=== PATIENT | female | born 1950 | race Caucasian/White ===

== ENCOUNTER → 2016-12-19 | Outpatient (CLI) | payer MEDICARE, OTHER ==
--- NOTE | 2016-12-19 12:21 | US ---
EXAMINATION TYPE: US abdomen complete, DATE OF EXAM: 12/19/2016 10:26 AM COMPARISON: CT August 15, 2010 CLINICAL HISTORY: R10.3 Lower abd pain. Hernia repair 2010, complete hysterectomy ovarian cancer 2000 , gb removed EXAM MEASUREMENTS: Liver Length: 17.4 cm Gallbladder Wall: gb removed CBD: 0.4 cm Spleen: 13.5 cm Right Kidney: 10.7 x 4.6 x 6.1 cm Left Kidney: 11.6 x 4.4 x 5.5 cm TECHNOLOGIST IMPRESSION: large body habitus, overlying bowel gas Pancreas: large body habitus, overlying bowel gas pancreatic duct 0.2 cm Liver: left lobe cystic structure 1.8 x 1.5 x 1.6 cm, small rt lobe 0.8 x 0.6 x 1.0 cm probable cyst; gregg hepatis region 2.9 x 0.8 x 1.8 cm fatty area Gallbladder: gb removed Evidence for sonographic Howard's sign: gb removed CBD: wnl Spleen: wnl enlarged. Right Kidney: wnl Left Kidney: wnl Upper IVC: wnl Abd Aorta: wnl bladder : rt jet seen Urinary bladder is not greatly distended, no suspicious intraluminal mass or wall thickening is evide nt The liver is heterogeneous in appearance, no worrisome intrahepatic ductal dilatation is seen. Evalua tion for focal masses is limited due to the heterogeneity. Finding likely reflects diffuse fatty infi ltration is confirmed on prior CT. Technologist ortez a 1.9 cm lobulated anechoic lesion felt to refl ect a thin-walled cyst is increased through transmission is noted in the left hepatic lobe. A central ill-defined hypoechoic area likely reflects focal fatty sparing marked by technologist. Lesion likel y enlarged from prior CT The intrahepatic portion of the IVC and visualized abdominal aorta are withi n normal limits. Gallbladder is surgically absent. Common bile duct is unremarkable. The visualized portions of the pancreas are heterogeneous. The spleen remains enlarged measuring 13.5 cm on long a xis. Kidneys are symmetric and free of hydronephrosis. No renal lesions are seen. At end of exam after voiding significant amount of residual urine is seen, calculated volume is 77 cc . IMPRESSION: Diffuse fatty infiltration of liver and mild splenomegaly is redemonstrated. Abnormal pos t void residual in bladder is noted
--- NOTE | 2016-12-19 12:23 | US ---
EXAMINATION TYPE: US pelvic limited DATE OF EXAM: 12/19/2016 10:30 AM COMPARISON: CT abdomen pelvis August 15, 2010 CLINICAL HISTORY: R10.3 Lower abd pain. Complete hysterectomy 2000 TECHNOLOGIST IMPRESSION: bowel loops prominent rt side but peristalsis seen Uterus is surgically absent. No free fluid is seen in pelvic cul-de-sac. Normal-appearing ovaries are not identified. Technologist's shows a oval hypoechoic structure in the right adnexa measuring 5.4 x 3.6 cm but during real-time scanning this is felt to reflect peristalsin g bowel per technologist. IMPRESSION: As above, no significant finding is seen to account for patient's symptoms.
== END | disposition home or self-care (01) ==
LOC: RADUSWWP 09:33
PROVIDERS: ATTEND Family Medicine
DX: K76.0 Fatty (change of) liver, not elsewhere classified (principal); R16.1 Splenomegaly, not elsewhere classified
CPT/HCPCS: 76700; 76857

== ENCOUNTER → 2016-12-19 | Outpatient (CLI) | payer MEDICARE, OTHER ==
--- NOTE | 2016-12-19 19:03 | PN ---
66-year-old lady who has been followed in the sleep center for treatment of obstructive sleep apnea/hypopnea syndrome. She had CPAP titration at the very end of 2016 and we discussed results of the sleep study with patient in detail. She sleeps pretty well during the sleep study and breathing was under control with lower pressure 5 and 6 cm of water. Patient continued to use her machine every night for the whole night without significant problems. No snoring with the machine. She still feels a little bit sleepy during the day. [place] Sleepiness Scale is 13, sometimes according to the patient. MEDICATIONS: 1. Losartan. 2. Hydrochlorothiazide. 3. Fenofibrate. 4. Zetia. 5. OxyContin. 6. Baclofen. 7. Tramadol. 8. Gabapentin. 9. Pro-Air. 10. Symbicort. 11. Metformin. 12. Montelukast. 13. Loratadine. 14. Fluticasone. 15. ( ). 16. Eliquis. During physical exam, the patient in no distress. VITAL SIGNS: BP 135/74, HR 75, RR 18. Weight 187.6. Temperature 98.2. Oxygen saturation at room air 97%. HEENT: Oropharynx extremely low position of soft palate. Some redness of the cheeks bilaterally, rosacea. NECK: Supple. No JVD. Thyroid is not palpable. LUNGS: Clear to percussion and to auscultation. Good air exchange. No wheezing or rhonchi. HEART: S1, S2 regular. No murmurs, gallops or rubs. ABDOMEN: Obese. Soft and nontender. Bowel sounds are present. No organomegaly appreciated. EXTREMITIES: No edema. No clubbing or cyanosis. 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 Cranial nerves 2 to 7 intact. There is no fasciculation or atrophy noted. No focal deficits observed. IMPRESSION: 1. Obstructive sleep apnea/hypopnea syndrome on control with CPAP at 6 cm of water. Patient benefiting from treatment. 2. Obesity. 3. Diabetes. 4. Peripheral neuropathy. 5. Allergies. 6. Hyperlipidemia. 7. Depression. 8. History of atrial fibrillation. 9. Rosacea. 10. History of ovarian carcinoma. PLAN: 1. Continue treatment with CPAP every night for the whole night. 2. Watching and losing weight. 3. Sleep hygiene with regular time in bed for at least 8 hours. 4. No driving if feeling any sleepiness. 5. Precautions related to driving. 6. Follow up visit in 10 months. Thank you very much for allowing me to participate in the management of your patient. Sincerely, Prosper Merida MD, PhD, FAASM. Diplomat of [place] [employer], Sleep Medicine Board by [employer] [place] [employer] [facility] [place]
== END | disposition home or self-care (01) ==
LOC: SLEEP 15:12
PROVIDERS: ATTEND Internal Medicine
DX: G47.33 Obstructive sleep apnea (adult) (pediatric) (principal); E66.9 Obesity, unspecified; E11.9 Type 2 diabetes mellitus without complications; G62.9 Polyneuropathy, unspecified; Z91.09 Other allergy status, other than to drugs and biological substances; E78.5 Hyperlipidemia, unspecified; F32.9 Major depressive disorder, single episode, unspecified; I48.91 Unspecified atrial fibrillation; L71.9 Rosacea, unspecified; Z85.43 Personal history of malignant neoplasm of ovary; Z79.899 Other long term (current) drug therapy

== ENCOUNTER → 2016-12-31 | Outpatient (CLI) | payer MEDICARE, OTHER ==
[2016-12-31 07:24] LABS: Blood Urea Nitrogen 17 mg/dL (7-17); Non-African American GFR(MDRD) >60 (>60 ml/min/1.73 sqM)
--- NOTE | 2016-12-31 08:31 | CT ---
EXAMINATION TYPE: CT abdomen pelvis w con DATE OF EXAM: 12/31/2016 7:50 AM COMPARISON: 08/15/2010 HISTORY: 66-year-old female with lower abdominal pain, difficulty emptying bladder, history of ovaria n cancer. TECHNIQUE: Contiguous axial scanning of the abdomen and pelvis following administration of 100 ml Omn ipaque 300 IV contrast. Delayed images through the kidneys and coronal/sagittal reconstructions perf ormed. CT DLP: 1256.1 mGycm Automated exposure control for dose reduction was used. FINDINGS: Heart is normal size without pericardial effusion. Lung bases clear without pleural effusion. The liver is enlarged measuring 19.3 cm craniocaudal. There is also slightly diminished attenuation o f the hepatic parenchyma suggesting fatty infiltration. Approximately 4 hypodense lesions are demonst rated within the liver, largest in the left hepatic lobe measures 2.1 cm and has enlarged from 010 where it measured only 6 mm. No significant change in density on delayed kidney images, suggestiv e of a cyst. Additional subcentimeter hypodense lesions, two within the posterior right hepatic lobe, and one within the anterior right hepatic dome are unchanged from 2009. Portal venous system is patent. Status post cholecystectomy with stable prominence of the bile duct at 9 mm likely on the basis of postcholecystectomy status. The main pancreatic duct is also noted to be prominent measuring up to 5 mm at the level of the pancr eatic head and neck, also relatively similar to previous. A 2 cm nodule within the left adrenal gland is unchanged compatible with a benign adrenal adenoma. Ri ght adrenal gland and kidneys within normal limits. Spleen is mildly enlarged measuring 15.6 cm craniocaudal versus 14.9 cm, previously. There is a redemonstrated ventral abdominal wall hernia. The hernia contains now only a mental fact w ithin dominant wall defect measuring 2.0 cm wide in the hernia sac measuring 3.9 x 5.0 cm. The proxim al third transverse colon does show a small Deleon hernia, axial image 53 just below in the right pa ramedian ventral abdominal wall. No dilated small bowel, free fluid, or free air. Mild sigmoid diverticulosis without pericolonic inflammatory change. Bladder is nondistended. There is pelvic floor relaxation. Uterus surgically absent. No pelvic lympha denopathy seen. Neither ovary is visualized and there is no adnexal mass. Bones: There is osteitis pubis and is similar sclerosis at the left greater than right SI joints poss ibly on a degenerative or reactive basis. No osseous destructive process. IMPRESSION: 1. FINDINGS SUGGEST PELVIC FLOOR RELAXATION. STATUS POST HYSTERECTOMY AND BILATERAL OOPHORECTOMY. 2. MODERATE SIZED OMENTAL FAT-CONTAINING VENTRAL ABDOMINAL WALL HERNIA. ADDITIONAL TINY DELEON HERNI A INVOLVING THE TRANSVERSE COLON RIGHT PARAMEDIAN ABDOMINAL WALL JUST BELOW. 3. HEPATIC STEATOSIS. CORRELATE WITH LFT's, LIPID PROFILE, AND PATIENT RISK FACTORS. HYPODENSE LESION S WITHIN THE LIVER SUGGESTIVE OF CYSTS, LARGEST IN THE LEFT LOBE HAS ENLARGED TO 2 CM. 4. 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 5. MILD SPLENOMEGALY (15.6 CM VERSUS 14.9 CM, PREVIOUSLY). CLINICALLY CORRELATE. 6. MILD SIGMOID DIVERTICULOSIS. NO ACUTE DIVERTICULITIS.
== END | disposition home or self-care (01) ==
LOC: RADCTMAIN 06:43
PROVIDERS: ATTEND Family Medicine
DX: K43.9 Ventral hernia without obstruction or gangrene (principal); K76.0 Fatty (change of) liver, not elsewhere classified; K76.89 Other specified diseases of liver; D35.02 Benign neoplasm of left adrenal gland; R16.1 Splenomegaly, not elsewhere classified; K57.30 Diverticulosis of large intestine without perforation or abscess without bleeding; Z90.722 Acquired absence of ovaries, bilateral; Z90.710 Acquired absence of both cervix and uterus
CPT/HCPCS: 82565; 84520; 74177; 36415; Q9967

== ENCOUNTER → 2017-01-08 | Outpatient (CLI) | payer MEDICARE, OTHER ==
--- NOTE | 2017-01-09 14:32 | MM ---
Reason for exam: screening (asymptomatic). Last mammogram was performed 2 years and 7 months ago. History: Patient is postmenopausal and has history of ovarian cancer at age 51. Took estrogen for 5 years. Took unspecified hormones for 5 years. Physical Findings: A clinical breast exam by your physician is recommended on an annual basis and results should be correlated with mammographic findings. MG 3D Screening Mammo W/Cad Bilateral CC and MLO view(s) were taken. Prior study comparison: June 02, 2014, bilateral MG screening mammo w CAD. January 15, 2013, bilateral digital screening mammo w/CAD. Finding #1: There is a new 5 mm mass in the subareolar position of the left breast. Finding #2: There are typically benign calcifications in both breasts. There is a chronic nodularity bilaterally. ASSESSMENT: Incomplete: need additional imaging evaluation, BI-RAD 0 RECOMMENDATION: Ultrasound of the left breast. [facility] will attempt to contact patient to return for ultrasound.
== END | disposition home or self-care (01) ==
LOC: RADMAMWWP 13:16
PROVIDERS: ATTEND Family Medicine
DX: Z12.31 Encounter for screening mammogram for malignant neoplasm of breast (principal)
CPT/HCPCS: 77063; G0202

== ENCOUNTER 2017-01-15 08:11 | Day surgery (SDC) | payer MEDICARE, OTHER ==
[2017-01-13 16:26] VITALS: BMI 31.4
[~2017-01-15 08:11] MED LIST: LACTATED RINGERS 1,000 ML IV SCH
[2017-01-15 08:56] VITALS: TEMP 98.2
[2017-01-15] MEDS ORDERED: LIDOCAINE 1% 20 ML VIAL (10MG/ML) FOR IV START INTRADERMA ONE (09:12)
[2017-01-15] MEDS ORDERED: LIDOCAINE 1% INJ 10MG/ML (20 ML MDV) ONE (09:15)
[2017-01-15] MEDS ORDERED: PROPOFOL 10 MG/ML 20 ML VIAL IV ONE (09:15)
[2017-01-15] MEDS ORDERED: LABETALOL 5 MG/ML VIAL MDV ONE (09:15)
[2017-01-15 09:22] LABS: Glucose,Whole Blood 125 mg/dL (75-99)
--- NOTE | 2017-01-15 09:33 | P.PCN ---
Date of Procedure: 01/15/17 Procedure(s) Performed: BRIEF HISTORY: Patient is a 66-year-old pleasant white female, scheduled for an elective colonoscopy as a part of screening for colorectal neoplasia. PROCEDURE PERFORMED: Colonoscopy with snare polypectomy PREOPERATIVE DIAGNOSIS: Screening for colon cancer. IV sedation per Anesthesia. PROCEDURE: After informed consent was obtained, the patient, was brought into the endoscopy unit. IV conscious sedation was administered by Anesthesia under continuous monitoring. Initially the Olympus CF-160 flexible video colonoscope was then inserted in the rectum, gradually advanced into the cecum without any difficulty. Careful examination was performed as the scope was gradually being withdrawn. Ileocecal valve and the appendiceal orifice were visualized and appeared normal. Prep was excellent. Mucosa of the cecum, appeared normal. In the ascending colon there were 3 polyps measuring between 5 mm and once intermittent size all of which were removed by snare polypectomy. In the transverse colon there was a 1 cm broad-based polyp removed by snare polypectomy. The rest of the ascending colon, transverse colon, descending colon appeared normal. In the sigmoid colon there was a 1 mL polyp removed by snare polypectomy and scattered sigmoid diverticulosis seen. The rest of the sigmoid colon, and rectum appeared normal. Retroflexion was performed in the rectum and no lesions were seen. The patient tolerated the procedure well. IMPRESSION: 3 polyps in the ascending colon measuring between 5 mm to 1 cm in size status post polypectomy 1 cm broad-based as his colon polyp status post polypectomy 1 cm distal sigmoid colon polyp status post polypectomy Scattered sigmoid diverticulosis. RECOMMENDATIONS: Findings of this examination were discussed with the patient as well as a family. She was advised to follow with the biopsy results. If the biopsy shows a tubular adenoma she can have a repeat colonoscopy in 3 years.
[2017-01-15 09:55] VITALS: BP 174/86; PULSE 78; RESP 16
== END 2017-01-15 10:08 | disposition home or self-care (01) ==
LOC: ORWHC2ENDO 08:11
PROVIDERS: ATTEND Internal Medicine Gastroenterology
DX: Z12.11 Encounter for screening for malignant neoplasm of colon (principal); D12.2 Benign neoplasm of ascending colon; D12.3 Benign neoplasm of transverse colon; D12.5 Benign neoplasm of sigmoid colon; K57.30 Diverticulosis of large intestine without perforation or abscess without bleeding; I10 Essential (primary) hypertension; J45.909 Unspecified asthma, uncomplicated; E11.9 Type 2 diabetes mellitus without complications; F17.200 Nicotine dependence, unspecified, uncomplicated; Z88.5 Allergy status to narcotic agent; Z88.0 Allergy status to penicillin; Z88.1 Allergy status to other antibiotic agents; Z88.8 Allergy status to other drugs, medicaments and biological substances; Z79.84 Long term (current) use of oral hypoglycemic drugs; Z79.01 Long term (current) use of anticoagulants; Z79.899 Other long term (current) drug therapy
CPT/HCPCS: 45385; 88305

== ENCOUNTER → 2017-01-15 | Outpatient (CLI) | payer MEDICARE, OTHER ==
[2017-01-15 09:06] LABS: ALT 30 U/L (9-52); AST 25 U/L (14-36); Alkaline Phosphatase 40 U/L (38-126); Anion Gap 15 mmol/L; Blood Urea Nitrogen 9 mg/dL (7-17); Calcium 9.7 mg/dL (8.4-10.2); Carbon Dioxide 26 mmol/L (22-30); Chloride 100 mmol/L (98-107); Cholesterol 171 mg/dL (<200); Glucose 111 mg/dL (74-99); HDL Cholesterol 58 mg/dL (40-60); Non-African American GFR(MDRD) >60 (>60 ml/min/1.73 sqM); Potassium 4.4 mmol/L (3.5-5.1); Sodium 141 mmol/L (137-145); Total Bilirubin 0.7 mg/dL (0.2-1.3); Total Protein 7.3 g/dL (6.3-8.2); Triglycerides 260 mg/dL (<150)
== END | disposition home or self-care (01) ==
LOC: LABWHC1 08:01
PROVIDERS: ATTEND Internal Medicine Endocrinology, Diabetes & Metabolism
DX: E11.65 Type 2 diabetes mellitus with hyperglycemia (principal); E03.8 Other specified hypothyroidism
CPT/HCPCS: 36415; 80053; 80061; 82043; 84443

== ENCOUNTER → 2017-01-17 | Outpatient (CLI) | payer MEDICARE, OTHER ==
--- NOTE | 2017-01-20 08:31 | USB ---
Reason for exam: additional evaluation requested from abnormal screening. History: Patient is postmenopausal and has history of ovarian cancer at age 51. Took estrogen for 5 years. Took unspecified hormones for 5 years. Physical Findings: Nurse did not find any significant physical abnormalities on exam. US Breast Workup LT Left breast ultrasound including all four quadrants, the retroareolar region and axilla demonstrates no cystic or solid lesion seen. These results were verbally communicated with the patient and result sheet given to the patient on 01/17/17. ASSESSMENT: Negative, BI-RAD 1 RECOMMENDATION: Follow-up diagnostic mammogram of the left breast in 6 months.
== END | disposition home or self-care (01) ==
LOC: RADUSWWP 10:18
PROVIDERS: ATTEND Family Medicine
DX: R92.8 Other abnormal and inconclusive findings on diagnostic imaging of breast (principal)

== ENCOUNTER → 2017-07-30 | Outpatient (CLI) | payer MEDICARE, OTHER ==
[2017-07-30 08:50] LABS: ALT 33 U/L (9-52); AST 21 U/L (14-36); Alkaline Phosphatase 60 U/L (38-126); Anion Gap 10 mmol/L; Blood Urea Nitrogen 19 mg/dL (7-17); Calcium 10.1 mg/dL (8.4-10.2); Carbon Dioxide 29 mmol/L (22-30); Chloride 100 mmol/L (98-107); Cholesterol 159 mg/dL (<200); Glucose 126 mg/dL (74-99); HDL Cholesterol 55 mg/dL (40-60); Non-African American GFR(MDRD) >60 (>60 ml/min/1.73 sqM); Potassium 4.6 mmol/L (3.5-5.1); Sodium 139 mmol/L (137-145); Total Bilirubin 0.4 mg/dL (0.2-1.3); Total Protein 6.9 g/dL (6.3-8.2)
[2017-07-30 09:36] LABS: Hepatitis C Virus IgG Ab Negative (Negative); Hepatitis C Virus IgG Index 0.01
[2017-07-30 16:42] LABS: Urine Creatinine 52.4 mg/dL
== END | disposition home or self-care (01) ==
LOC: LABWHC1 07:49
PROVIDERS: ATTEND Internal Medicine Endocrinology, Diabetes & Metabolism
DX: E11.65 Type 2 diabetes mellitus with hyperglycemia (principal)
CPT/HCPCS: 36415; 80053; 80061; 82043; 82570; 84443; 86803

== ENCOUNTER → 2017-07-31 | Outpatient (CLI) | payer MEDICARE, OTHER ==
--- NOTE | 2017-07-31 11:21 | MM ---
Reason for exam: follow-up at short interval from prior study. Last mammogram was performed 7 months ago. History: Patient is postmenopausal and has history of ovarian cancer at age 51. Took estrogen for 5 years. Took unspecified hormones for 5 years. Physical Findings: Nurse did not find any significant physical abnormalities on exam. MG 3D Diag Mammo W/Cad LT CC and MLO view(s) were taken of the left breast. Prior study comparison: January 08, 2017, bilateral MG 3d screening mammo w/cad. June 02, 2014, bilateral MG screening mammo w CAD. Stable masses in the left breast unchanged since 06/02/14. These results were verbally communicated with the patient and result sheet given to the patient on 07/31/17. ASSESSMENT: Benign, BI-RAD 2 RECOMMENDATION: Return to routine screening mammogram schedule for both breasts. Back on schedule.
== END ==
LOC: RADMAMWWP 09:57
PROVIDERS: ATTEND Internal Medicine Hematology & Oncology
DX: R92.8 Other abnormal and inconclusive findings on diagnostic imaging of breast (principal)
CPT/HCPCS: G0206; G0279

== ENCOUNTER → 2018-02-04 | Outpatient (CLI) | payer MEDICARE, OTHER ==
--- NOTE | 2018-02-04 15:59 | MR ---
EXAMINATION TYPE: MR lumbar spine wo con DATE OF EXAM: 02/04/2018 COMPARISON: Prior MRI lumbar spine May 31, 2011. HISTORY: Low back pain per order. Pain into both legs for over 10 years per patient. TECHNIQUE: Multiplanar, multisequence imaging of the lumbar spine is performed without IV contrast. FINDINGS: Sagittal images of the lumbar spine show vertebral body heights and alignment to appear sat isfactory. Multilevel disc desiccation is present. There is mild disc space narrowing L3-L4 and L4-L5 levels. Posterior disc herniations are seen L4-L5 and L5-S1 levels on sagittal images. The conus me dullaris is normal in position and signal. The bone marrow signal intensity is within normal limits. 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 No significant spurring is seen. Axial images show the T12-L1 and L1-L2 levels to appear within normal limits. Axial images at L2-L3 level show mild/moderate broad disc bulge mildly effacing anterior thecal sac o n axial image 18, bilateral neural foramina are patent. No significant change from prior study is marlen ntified. Axial images at L3-L4 level show mild broad disc bulge minimally effacing anterior thecal sac and cau sing mild right-sided anterior inferior neural foraminal narrowing sagittal image 12. Left-sided neur al foramen is patent. No significant change from prior study is seen. Axial images at L4-L5 level show mild to moderate facet degenerative changes bilaterally. There is br oad disc bulge minimally effacing anterior thecal sac. There is mild to moderate right-sided neural f oraminal narrowing due to right foraminal disc protrusion component on axial image 18 and sagittal im age 12. This is new from prior study. Left-sided neural foramen is patent. Axial images at L5-S1 level show mild facet degenerative changes bilaterally. There is central disc p rotrusion seen but spinal canal is preserved and bilateral neural foramina are patent. There are a few thin-walled T2 hyperintense subcentimeter lesions favoring simple cysts scattered thr oughout visualized portion of liver. There is stable 1.9 cm left adrenal nodular thickening. There is double duct sign and pancreatic head which correlates with CT December 31. No obvious mass at this l evel is identified. Need to further investigate by ERCP should be based on clinical correlation. IMPRESSION: Some multilevel degenerative changes in the lumbar spine redemonstrated, findings fairly stable with some new findings noted L4-L5 level
== END | disposition home or self-care (01) ==
LOC: RADMRIMAIN 14:43
PROVIDERS: ATTEND Family Medicine
DX: M47.816 Spondylosis without myelopathy or radiculopathy, lumbar region (principal)
CPT/HCPCS: 72148

== ENCOUNTER → 2018-05-04 | Outpatient (CLI) | payer MEDICARE, OTHER ==
[2018-05-04 08:46] LABS: ALT 32 U/L (9-52); AST 22 U/L (14-36); Albumin 4.3 g/dL (3.5-5.0); Alkaline Phosphatase 57 U/L (38-126); Anion Gap 11 mmol/L; Blood Urea Nitrogen 15 mg/dL (7-17); Calcium 9.5 mg/dL (8.4-10.2); Carbon Dioxide 26 mmol/L (22-30); Chloride 100 mmol/L (98-107); Cholesterol 160 mg/dL (<200); Glucose 139 mg/dL (74-99); HDL Cholesterol 55 mg/dL (40-60); LDL Cholesterol,Calculated 69 mg/dL (0-99); Potassium 4.8 mmol/L (3.5-5.1); Sodium 137 mmol/L (137-145); Total Bilirubin 0.3 mg/dL (0.2-1.3); Total Protein 6.7 g/dL (6.3-8.2); Triglycerides 179 mg/dL (<150)
[2018-05-04 18:40] LABS: Hemoglobin A1C 6.1 % (4.0-6.0)
== END | disposition home or self-care (01) ==
LOC: LABWHC1 07:48
PROVIDERS: ATTEND Internal Medicine Endocrinology, Diabetes & Metabolism
DX: E03.8 Other specified hypothyroidism (principal); E11.65 Type 2 diabetes mellitus with hyperglycemia
CPT/HCPCS: 36415; 80053; 80061; 82043; 82570; 83036; 84443

== ENCOUNTER → 2018-09-01 | Outpatient (CLI) | payer MEDICARE, OTHER ==
--- NOTE | 2018-09-02 12:45 | MM ---
Reason for exam: screening (asymptomatic). Last mammogram was performed 1 year and 1 month ago. History: Patient is postmenopausal and has history of ovarian cancer at age 51. Took estrogen for 5 years. Took unspecified hormones for 5 years. Physical Findings: A clinical breast exam by your physician is recommended on an annual basis and results should be correlated with mammographic findings. MG 3D Screening Mammo W/Cad Bilateral CC and MLO view(s) were taken. Prior study comparison: July 31, 2017, left breast MG 3d diag mammo w/cad LT. January 08, 2017, bilateral MG 3d screening mammo w/cad. The breast tissue is almost entirely fat. No significant changes when compared with prior studies. ASSESSMENT: Benign, BI-RAD 2 RECOMMENDATION: Routine screening mammogram of both breasts in 1 year.
== END | disposition home or self-care (01) ==
LOC: RADMAMWWP 09:50
PROVIDERS: ATTEND Family Medicine
DX: Z12.31 Encounter for screening mammogram for malignant neoplasm of breast (principal)
CPT/HCPCS: 77063; 77067

== ENCOUNTER → 2018-09-15 | Outpatient (CLI) | payer MEDICARE, OTHER ==
[2018-09-15 10:36] LABS: Blood Urea Nitrogen 19 mg/dL (7-17)
--- NOTE | 2018-09-15 11:48 | CT ---
EXAMINATION TYPE: CT adrenal glands wo/w con DATE OF EXAM: 09/15/2018 HISTORY: Adrenal cortical adenoma CT DLP: 1800.9mGycm Automated Exposure Control for Dose Reduction was Utilized. CONTRAST: CT scan of the abdomen is performed with oral and without and with IV Contrast, patient injected with 100 mL of Isovue 300. Adrenal gland protocol. COMPARISON: CT abdomen and pelvis December 31, 2016 and older CTs FINDINGS: LUNG BASES: No significant abnormality is appreciated. LIVER/GB: Visualized liver is heterogeneously hypodense relative to spleen on noncontrast CT consiste nt with diffuse fatty infiltration. A few simple appearing thin-walled cysts are scattered throughout the liver not significantly changed in appearance from older studies. Cholecystectomy clips are rede monstrated. PANCREAS: No significant abnormality is seen. SPLEEN: No significant abnormality is seen. ADRENALS: There is redemonstration of 2.0 x 1.5 cm left adrenal mass axial image 25 perhaps slightly larger from 2010 CT. Hounsfield units on noncontrast CT average -4. There is enhancement to 62 Hounsf ield units on postcontrast 1 minute images and washout to 17 Hounsfield units on 15 minute delayed im ages. Imaging characteristics are consistent with benign lipid rich adenoma. No suspicious right adre nal mass is present. KIDNEYS: No renal calculi bilaterally. Symmetric cortical medullary uptake and excretion without hydr onephrosis bilaterally BOWEL: Oral contrast does not reach colonic level. No suspicious small or large bowel dilatation LYMPH NODES: No greater than 1cm abdominal lymph nodes are appreciated. OSSEOUS STRUCTURES: No significant abnormality is seen. OTHER: Interval repair of bowel containing umbilical hernia. There is persistent or new left periumbi lical narrowneck hernia containing fat and tiny mesenteric vessels axial image 62. IMPRESSION: 1. Stable 2.0 cm benign lipid rich left adrenal gland adenoma. 2. Interval repair of bowel containing ventral wall hernia. Persistent or new narrowneck left periumb ilical hernia containing fat and tiny mesenteric vessels.
== END ==
LOC: RADCTMAIN 09:55
PROVIDERS: ATTEND Internal Medicine Endocrinology, Diabetes & Metabolism
DX: D35.02 Benign neoplasm of left adrenal gland (principal); K43.9 Ventral hernia without obstruction or gangrene
CPT/HCPCS: 82565; 84520; 36415; 74170; Q9967

== ENCOUNTER → 2018-12-24 | Outpatient (CLI) | payer MEDICARE, OTHER ==
[2018-12-24 19:40] LABS: Albumin 4.4 g/dL (3.80-4.90); Albumin/Globulin Ratio 2.32 (1.60-3.17); Anion Gap 9.2 mmol/L (4.00-12.00); Calcium 9.5 mg/dL (8.7-10.3); Carbon Dioxide 27.8 mmol/L (21.6-31.8); Globulin 1.9 g/dL (1.6-3.3); LDL Cholesterol,Calculated 66.8 mg/dL (0.0-131.0); Potassium 4.4 mmol/L (3.5-5.5); Total Bilirubin 0.4 mg/dL (0.2-1.2); Total Protein 6.3 g/dL (6.2-8.2); VLDL Calculation 31.2 mg/dL (5.00-40.00)
== END | disposition home or self-care (01) ==
LOC: LABWHC1 11:36
PROVIDERS: ATTEND Internal Medicine Endocrinology, Diabetes & Metabolism
DX: E11.9 Type 2 diabetes mellitus without complications (principal)
CPT/HCPCS: 36415; 80053; 80061; 82043; 82570; 82607; 84443

== ENCOUNTER → 2019-03-26 | Outpatient (CLI) | payer MEDICARE ==
[2019-03-26 16:02] LABS: Albumin 4.7 g/dL (3.80-4.90); Albumin/Globulin Ratio 2.35 (1.60-3.17); Anion Gap 10.8 mmol/L (4.00-12.00); Calcium 9.6 mg/dL (8.7-10.3); Carbon Dioxide 24.2 mmol/L (21.6-31.8); LDL Cholesterol,Calculated 76.6 mg/dL (0.0-131.0); Potassium 4.4 mmol/L (3.5-5.5); Total Bilirubin 0.4 mg/dL (0.2-1.2); Total Protein 6.7 g/dL (6.2-8.2); VLDL Calculation 29.4 mg/dL (5.00-40.00)
== END ==
LOC: LABWHC1 09:10
PROVIDERS: ATTEND Internal Medicine Endocrinology, Diabetes & Metabolism
DX: E11.9 Type 2 diabetes mellitus without complications (principal)
CPT/HCPCS: 36415; 80053; 80061; 82043; 82570; 82607; 84443

== ENCOUNTER → 2019-09-30 | Outpatient (CLI) | payer MEDICARE ==
--- NOTE | 2019-09-30 09:25 | US ---
EXAMINATION TYPE: US abdomen limited DATE OF EXAM: 09/30/2019 COMPARISON: NONE CLINICAL HISTORY: R10.33 PERIUMBILICAL HERNIA. patient had surgical repair of umbilical hernia 18 yrs ago, patient states hernia has returned at her umbilicus. Assess for hernia at location of: umbilical Obvious break in the sheath to the right of umbilicus with slightly hypoechoic area seen moving. Appe ars to be fat containing hernia versus bowel due to no peristalsing seen. Very slight extension of he rniation noted during valsalva maneuver. IMPRESSION: Probable fat-containing hernia. Real-time scanning was performed by the acute specialist utilizing Valsalva and additional dynamic maneuve rs to assess for hernia. Images of the contralateral side were also acquired for direct comparison.
== END | disposition home or self-care (01) ==
LOC: RADUSWWP 08:45
PROVIDERS: ATTEND Internal Medicine Gastroenterology
DX: R10.33 Periumbilical pain (principal)
CPT/HCPCS: 76705

== ENCOUNTER → 2019-12-23 | Outpatient (CLI) | payer MEDICARE ==
[2019-12-23 13:24] LABS: Basophils % (A) 1 %; Eosinophils # (A) 0.1 k/uL (0-0.7); Eosinophils % (A) 2 %; HCT 32.9 % (34.0-46.0); HGB 11.1 gm/dL (11.4-16.0); Lymphocytes # (A) 0.8 k/uL (1.0-4.8); Lymphocytes % (A) 16 %; MCH 30.5 pg (25.0-35.0); MCHC 33.9 g/dL (31.0-37.0); MCV 89.9 fL (80.0-100.0); Mean Platelet Volume 6.8; Monocytes # (A) 0.2 k/uL (0-1.0); Monocytes % (A) 5 %; Neutrophils # (A) 3.7 k/uL (1.3-7.7); Neutrophils % (A) 74 %; Platelet Count 311 k/uL (150-450); RBC 3.66 m/uL (3.80-5.40); RDW 13.4 % (11.5-15.5)
[2019-12-23 13:29] LABS: Appearance,Urine Clear (Clear); Bilirubin,Urine Negative (Negative); Blood,Urine Negative (Negative); Color,Urine Yellow; Glucose,Urine (UA) Negative (Negative); Ketones,Urine Negative (Negative); Leukocyte Esterase,Urine Negative (Negative); Nitrite,Urine Negative (Negative); Protein,Urine Negative (Negative); Specific Gravity,Urine 1.014 (1.001-1.035); Urobilinogen,Urine <2.0 mg/dL (<2.0)
[2019-12-23 14:06] LABS: Creatine Kinase MB 1.4 ng/mL (0.0-2.4); Troponin I <0.012 ng/mL (0.000-0.034)
[2019-12-23 18:41] LABS: African American GFR (CKD) 87.2 (60.0-200.0); Albumin 4.3 g/dL (3.80-4.90); Albumin/Globulin Ratio 2.53 (1.60-3.17); Anion Gap 10.3 mmol/L (4.00-12.00); BUN/Creat Ratio 23.75 Ratio (12.00-20.00); Calcium 8.8 mg/dL (8.7-10.3); Carbon Dioxide 23.7 mmol/L (21.6-31.8); Chol/HDL Ratio 2.73; Globulin 1.7 g/dL (1.6-3.3); LDL Cholesterol,Calculated 50.8 mg/dL (0.0-131.0); Magnesium 1.9 mg/dL (1.5-2.4); Non-African American GFR(CKD) 75.2 (60.0-200.0); Potassium 3.8 mmol/L (3.5-5.5); Total Bilirubin 0.5 mg/dL (0.3-1.2); Uric Acid 5.6 mg/dL (2.9-7.7); VLDL Calculation 44.2 mg/dL (5.00-40.00)
[2019-12-23 18:49] LABS: Ferritin 178.2 ng/mL (10.0-291.0)
[2019-12-23 18:51] LABS: Folate, Serum 8.7 ng/mL
== END | disposition home or self-care (01) ==
LOC: LABWHC1 12:32
PROVIDERS: ATTEND Family Medicine
DX: I10 Essential (primary) hypertension (principal); R06.02 Shortness of breath; F32.9 Major depressive disorder, single episode, unspecified; R41.0 Disorientation, unspecified; R53.83 Other fatigue; M62.81 Muscle weakness (generalized); I25.10 Atherosclerotic heart disease of native coronary artery without angina pectoris; E11.9 Type 2 diabetes mellitus without complications; R25.1 Tremor, unspecified; Z79.899 Other long term (current) drug therapy
CPT/HCPCS: 36415; 80053; 80061; 81003; 82306; 82550; 82553; 82607; 82728; 82746; 83036; 83615; 83735; 83880; 84443; 84484; 84550; 85025; 85379; 87086

== ENCOUNTER → 2019-12-24 | Outpatient (CLI) | payer MEDICARE ==
--- NOTE | 2019-12-24 10:45 | CT ---
CT CHEST FOR PULMONARY EMBOLISM. EXAMINATION TYPE: CT angio chest DATE OF EXAM: 12/24/2019 INDICATION: elevated d-dimer, shortness of breath CT DLP: 470.3 mGycm, Automated exposure control for dose reduction was used. CONTRAST: Patient injected with 100 mL of Isovue 370. COMPARISON: 09/15/2018 TECHNIQUE: CT of the chest is performed on a spiral scan at 2 mm thick sections. Study is performed with intravenous contrast timed for evaluation for pulmonary embolism. This will limit additional po rtions of the evaluation. 3-D MIP images reconstructed by the technologist are reviewed on the compu ter in the coronal and sagittal planes. FINDINGS: No persistent filling defects are evident to suggest an acute pulmonary embolism. No mediastinal or hilar adenopathy enlarged by CT criteria is evident. The ascending aorta diameter at the level of the main pulmonary artery is 3.0 cm. The main pulmonary artery diameter at the bifur cation is 2.4 cm. Lung windows are clear. Limited CT section through the upper abdomen there is thickening of the left adrenal gland measuring 1.8 cm IMPRESSIONS: 1. No acute pulmonary embolism. 2. Thickening of the left adrenal gland. This has been worked up as a probably benign lipid rich lef t adrenal gland adenoma 09/15/2018.
== END | disposition home or self-care (01) ==
LOC: RADCTMAIN 09:52
PROVIDERS: ATTEND Family Medicine
DX: E27.8 Other specified disorders of adrenal gland (principal)
CPT/HCPCS: 71275; Q9967

== ENCOUNTER → 2019-12-29 | Outpatient (CLI) | payer MEDICARE ==
--- NOTE | 2019-12-29 11:18 | CT ---
EXAMINATION TYPE: CT soft tissue neck w con DATE OF EXAM: 12/29/2019 COMPARISON: None HISTORY: 69 year-old female left vocal cord paralysis TECHNIQUE: Contiguous axial scanning of the soft tissues of the performed with IV Contrast, patient i njected with 100 ml mL of Isovue 300. Coronal/sagittal reconstructions performed. CT DLP: 626 mGycm Automated exposure control for dose reduction was used. FINDINGS: Visualized intracranial structures, paranasal sinuses, mastoid air cells appear clear. Nasopharynx and oropharynx are clear. Epiglottis and prevertebral soft tissues are within normal limits. There is asymmetric lateral bowing of the left vocal cord and asymmetric promised to the left pirifor m sinus. No suspicious nodular soft tissue is identified here. The trachea and visualized upper lungs appear clear. Scattered punctate calcifications within the thyroid gland. The submandibular and parotid glands appe ar satisfactory. No cervical lymphadenopathy. Moderate atherosclerotic calcifications left greater than right carotid bifurcations. Bones: Moderate degenerative disc disease C5-C6 with disc osteophyte complex mildly narrowing the spi nal canal here. Hypertrophic facet arthropathy particularly on the right. IMPRESSION: 1. LATERAL BOWING OF THE LEFT VOCAL CORD AND ASYMMETRIC PROMINENCE TO THE LEFT PIRIFORM SINUS IN KEEP ING WITH THE STATED HISTORY OF VOCAL CORD PARALYSIS. 2. No suspicious neck mass or cervical lymphadenopathy seen. 3. Moderate atherosclerotic calcifications at the left greater than right carotid bifurcations.
== END | disposition home or self-care (01) ==
LOC: RADCTMAIN 10:15
PROVIDERS: ATTEND Otolaryngology
DX: J38.01 Paralysis of vocal cords and larynx, unilateral (principal); I65.23 Occlusion and stenosis of bilateral carotid arteries; Z88.0 Allergy status to penicillin; Z88.1 Allergy status to other antibiotic agents; Z88.5 Allergy status to narcotic agent
CPT/HCPCS: 70491; Q9967

== ENCOUNTER → 2020-05-04 | Outpatient (CLI) | payer MEDICARE ==
[2020-05-04 12:01] LABS: Basophils % (A) 1 %; Eosinophils # (A) 0.1 k/uL (0-0.7); Eosinophils % (A) 1 %; HCT 39.1 % (34.0-46.0); HGB 12.5 gm/dL (11.4-16.0); Lymphocytes # (A) 0.9 k/uL (1.0-4.8); Lymphocytes % (A) 16 %; MCH 27.8 pg (25.0-35.0); MCV 86.7 fL (80.0-100.0); Mean Platelet Volume 7.3; Monocytes # (A) 0.3 k/uL (0-1.0); Monocytes % (A) 5 %; Neutrophils # (A) 4.1 k/uL (1.3-7.7); Neutrophils % (A) 76 %; Platelet Count 258 k/uL (150-450); RBC 4.51 m/uL (3.80-5.40); RDW 13.3 % (11.5-15.5); WBC 5.4 k/uL (3.8-10.6)
[2020-05-04 16:44] LABS: African American GFR (CKD) 66.6 (60.0-200.0); Albumin 4.4 g/dL (3.80-4.90); Albumin/Globulin Ratio 2.2 (1.60-3.17); Calcium 9.3 mg/dL (8.7-10.3); Chol/HDL Ratio 2.17; LDL Cholesterol,Calculated 18.4 mg/dL (0.0-131.0); Non-African American GFR(CKD) 57.4 (60.0-200.0); Potassium 4.1 mmol/L (3.5-5.5); Total Bilirubin 0.3 mg/dL (0.2-1.2); Total Protein 6.4 g/dL (6.2-8.2); VLDL Calculation 36.6 mg/dL (5.00-40.00)
== END | disposition home or self-care (01) ==
LOC: LABWHC1 10:23
PROVIDERS: ATTEND Internal Medicine Cardiovascular Disease
DX: E78.2 Mixed hyperlipidemia (principal); Z79.01 Long term (current) use of anticoagulants; R06.09 Other forms of dyspnea
CPT/HCPCS: 36415; 80053; 80061; 83880; 85025

== ENCOUNTER 2020-05-26 07:19 | Day surgery (SDC) | payer MEDICARE ==
[2020-05-25 09:00] VITALS: BMI 33.3
[~2020-05-26 07:19] MED LIST changes: +LIDOCAINE 1% (10MG/ML) FOR IV START INTRADERMA PRN
[2020-05-26 07:40] VITALS: TEMP 97.5
[2020-05-26] MEDS ORDERED: LIDOCAINE 1% (10MG/ML) FOR IV START INTRADERMA ONE (07:40)
[2020-05-26 07:42] LABS: Glucose,Whole Blood 170 mg/dL (75-99)
[2020-05-26] MEDS ORDERED: LIDOCAINE 1% INJ 10MG/ML (20 ML MDV) ONE (07:53)
[2020-05-26] MEDS ORDERED: PROPOFOL 10 MG/ML 20 ML VIAL IV ONE (07:53)
--- NOTE | 2020-05-26 08:23 | P.PCN ---
Date of Procedure: 05/26/20 Procedure(s) Performed: Brief history: Patient is a pleasant 69-year-old white female scheduled for an elective upper endoscopy as well as colonoscopy as a part of evaluation of GERD/epigastric pain and abdominal bloating for the last few months duration. She also has prior history of colon polyps and last colonoscopy was in 2017. Procedure performed: Esophagogastroduodenoscopy with biopsy Colonoscopy with snare polypectomy Preoperative diagnosis: GERD History of colon polyps Anesthesia: MAC Procedure: After informed consent was obtained from the patient was brought into the endoscopy unit and IV sedation was administered by anesthesia under continuous monitoring. Initially upper endoscopy was done. The Olympus GF 160 video endoscope was inserted inserted into the mouth and esophagus intubated without any difficulty and was gradually advanced into the stomach and duodenum and care fully examined. The bulb and second part of the duodenum appeared normal. The scope was then withdrawn into the stomach adequately insufflated with air and upon careful examination the antrum had mild gastritis and biopsies were done from this area. The body, cardia and fundus appeared normal. The scope was then withdrawn into the esophagus. The GE junction was located at 40 cm to the incisors. It appeared regular with no erythema erosions or ulcerations. Rest of the esophagus appeared normal. Patient tolerated the procedure well. At this time the patient continued to remain sedation. Initial digital rectal examination was normal. Olympus CF 160 video colonoscope was then inserted into the rectum and gradually advanced to the cecum without any difficulty. Careful examination was performed as the scope was gradually being withdrawn. The prep was excellent. The cecum, appeared normal. In the ascending colon there was a 5 mm sessile polypectomy. In the descending colon there were 3 polyps measuring 5 mm and 7 mm in size removed by snare polypectomy. 3 mm polyp in the sigmoid colon status post polypectomy. Rest of the ascending colon, transverse colon, descending colon, sigmoid colon and rectum appeared normal. Retroflexion was performed in the rectum and no lesions were noted. Patient tolerated the procedure well. Impression: 1. Upper endoscopy revealed mild antral gastritis but no evidence of esophagitis 2. Colonoscopy revealed a) 5 mm and 7 mm 2 descending colon polyps is post polypectomy) b) 3 mm; sigmoid: polyp status post polypectomy c) 1 cm ascending colon polyp status post polypectomy Recommendations: Findings of this examination were discussed with the patient as well as her family. She was advised to follow with the biopsy.Physical biopsy shows an adenoma she can have a repeat colonoscopy in 3-5yrs
[2020-05-26 08:27] VITALS: RESP 16
[2020-05-26 08:44] VITALS: BP 166/74; PULSE 73
== END 2020-05-26 09:01 | disposition home or self-care (01) ==
LOC: ORWHC2ENDO 07:19
PROVIDERS: ATTEND Internal Medicine Gastroenterology
DX: D12.4 Benign neoplasm of descending colon (principal); D12.2 Benign neoplasm of ascending colon; D12.5 Benign neoplasm of sigmoid colon; K29.50 Unspecified chronic gastritis without bleeding; Z86.010 Personal history of colon polyps; I48.91 Unspecified atrial fibrillation; J44.9 Chronic obstructive pulmonary disease, unspecified; E11.9 Type 2 diabetes mellitus without complications; E07.9 Disorder of thyroid, unspecified; K21.9 Gastro-esophageal reflux disease without esophagitis; Z79.84 Long term (current) use of oral hypoglycemic drugs; Z79.890 Hormone replacement therapy; Z79.51 Long term (current) use of inhaled steroids; Z79.899 Other long term (current) drug therapy
CPT/HCPCS: 88305; 45385; 43239; J2001; J2704

== ENCOUNTER 2020-05-31 11:12 | Day surgery (SDC) | payer MEDICARE ==
[2020-05-25 10:20] VITALS: BMI 33.3
[~2020-05-31 11:12] MED LIST changes: +CLINDAMYCIN 600 MG in DEXTROSE 5% IN WATER 50 ML IVPB ONE; +DEXAMETHASONE SOD PHOSPHATE 10 MG/ML 1 ML VIAL IV ONE; +DEXAMETHASONE SOD PHOSPHATE 4 MG/ML 1 ML VIAL IV ONE; +FAMOTIDINE 20 MG/2 ML VIAL IV ONE; +HYDROmorphone 0.5 MG/0.5 ML SYRINGE IVP PRN; -LIDOCAINE 1% (10MG/ML) FOR IV START INTRADERMA PRN; +ONDANSETRON 4 MG/2 ML VIAL IVP ONE
[2020-05-31 11:56] VITALS: TEMP 97.8
[2020-05-31 12:05] LABS: Glucose,Whole Blood 185 mg/dL (75-99)
[2020-05-31] MEDS ORDERED: ONDANSETRON 4 MG/2 ML VIAL ONE (12:18)
[2020-05-31] MEDS ORDERED: DEXAMETHASONE SOD PHOSPHATE 10 MG/ML 1 ML VIAL ONE (13:29)
[2020-05-31] MEDS ORDERED: PROPOFOL 10 MG/ML 20 ML VIAL IV ONE (13:29)
[2020-05-31] MEDS ORDERED: fentaNYL (PF) 50 MCG/ML 2 ML AMP ONE (13:29)
[2020-05-31] MEDS ORDERED: MIDAZOLAM 2 MG/2 ML VIAL ONE (13:29)
[2020-05-31] MEDS ORDERED: LIDOCAINE 1%-EPI 1:100,000 20 ML VIAL SQ ONE ×2 (13:39)
[2020-05-31] MEDS ORDERED: hydrALAZINE HCL 20 MG/ML 1 ML VIAL IVP ONE ×2 (14:39→16:20)
--- NOTE | 2020-05-31 15:15 | P.OP ---
Date of Procedure: 05/31/20 Preoperative Diagnosis: Left true vocal cord paralysis Postoperative Diagnosis: Same Procedure(s) Performed: Left medialization thyroplasty Anesthesia: MAC Surgeon: Andrew Pearce Estimated Blood Loss (ml): 3 Pathology: none sent Condition: stable Disposition: PACU Indications for Procedure: This is a 69-year-old white female who has a remote history of left true vocal paralysis. She had proposed thyroplasty about 20 years ago and then had to postpone this due to ovarian cancer. Persistent breathy voice. Operative Findings: Left vocal cord paralysis in the paramedian position Description of Procedure: Patient was brought in the operative suite and placed in a supine position. The patient underwent induction of IV sedation after appropriate monitors were placed by the rag cutting machine feeder. The patient was prepped and draped in usual aseptic fashion. 1% lidocaine with 1 100,000 epinephrine was infused over the left anterior neck at the proposed incision. A transverse cervical incision was then made after 7 minutes elapsed for vasoconstrictive effect approximate 5 mm above the inferior margin of the thyroid cartilage. This was carried through the skin and subcutaneous tissue and platysma muscle to the strap muscles. The strap muscles were then reflected laterally the midline on the left off of the thyroid cartilage. The thyroid hyoid muscle was identified over the thyroid cartilage and was divided at the inferior margin cartilage with good hemostasis noted. The Thyroid lamina was then exposed. The Aviles thyroplasty set was utilized during the whole procedure with female sizing instruments. The window caliper was used to located superior border and anterior superior angle of the thyroplasty window and the keep ointment was identified. The window outline instrument was then placed at the keep 0.2 marked the 4 corners of the thyroplasty window. The thyroplasty window was then made sharply as this was cartilaginous although the inferior aspect was ossified. This did require a small frondular to remove a small portion of the inferior cartilage. The cartilage window was then removed off of the underlying perichondrium and the perichondrium was scored from anterior to posterior and was elevated from the underlying cartilage. The female thyroplasty implants with the thyroplasty system was then utilized with voicing to obtain the optimal audible voicing which was a #9 female Aviles thyroplasty implant. The #9 female Aviles implant was then placed. Repeat voicing was performed with good voicing and greatly improved. There was no strain or respiratory difficulty. The flex laryngoscopy was then performed and the vocal cord was noted to be in the median position. With good compensation from the right vocal cord on vocalization with good airway and no edema noted. The wound was irrigated with copious sterile normal saline and excellent hemostasis was noted. A #10 round drain was placed with separate stab incision and sutured to the skin with a #4 still suture. The wound was closed in layers with the muscular layers closed with inverted interrupted 3-0 Vicryl suture the subcutaneous layer closed with inverted interrupted 4-0 Vicryl suture skin closed with running locking 5-0 Prolene suture followed by sterile dressing. The drain was working well with only minimal 1 mL output. The patient was then allowed to emerge further from anesthesia although she was alert and awake already and was transferred to the postop recovery area in satisfactory condition.
[2020-05-31] MEDS ORDERED: LABETALOL SYRINGE 5 MG/ML IVP ONE ×2 (15:36→15:58)
[2020-05-31 16:28] LABS: Glucose,Whole Blood 246 mg/dL (75-99)
[2020-05-31] MEDS ORDERED: INSULIN ASPART (NovoLOG) 100 UNIT/ML VIAL SQ ONE (16:40)
[2020-05-31 16:50] VITALS: RESP 16
[2020-05-31 17:39] VITALS: BP 117/62; PULSE 76
== END 2020-05-31 17:51 | disposition home or self-care (01) ==
LOC: OR 11:12
PROVIDERS: ATTEND Otolaryngology
DX: J38.01 Paralysis of vocal cords and larynx, unilateral (principal); Z95.5 Presence of coronary angioplasty implant and graft; Z90.49 Acquired absence of other specified parts of digestive tract; Z90.710 Acquired absence of both cervix and uterus; Z98.51 Tubal ligation status; Z98.890 Other specified postprocedural states; E78.5 Hyperlipidemia, unspecified; K21.9 Gastro-esophageal reflux disease without esophagitis; F32.9 Major depressive disorder, single episode, unspecified; E11.9 Type 2 diabetes mellitus without complications; E03.9 Hypothyroidism, unspecified; J43.9 Emphysema, unspecified; H91.90 Unspecified hearing loss, unspecified ear; E78.00 Pure hypercholesterolemia, unspecified; H93.19 Tinnitus, unspecified ear; E11.65 Type 2 diabetes mellitus with hyperglycemia; G47.33 Obstructive sleep apnea (adult) (pediatric); Z99.89 Dependence on other enabling machines and devices; G89.29 Other chronic pain; I48.0 Paroxysmal atrial fibrillation; R26.81 Unsteadiness on feet; F17.210 Nicotine dependence, cigarettes, uncomplicated; E66.9 Obesity, unspecified; Z68.34 Body mass index [BMI] 34.0-34.9, adult; F41.9 Anxiety disorder, unspecified; G47.00 Insomnia, unspecified; I48.91 Unspecified atrial fibrillation; L30.9 Dermatitis, unspecified; R00.2 Palpitations; M51.37 Other intervertebral disc degeneration, lumbosacral region; I25.10 Atherosclerotic heart disease of native coronary artery without angina pectoris; I27.20 Pulmonary hypertension, unspecified; I11.9 Hypertensive heart disease without heart failure; Z85.43 Personal history of malignant neoplasm of ovary; Z87.01 Personal history of pneumonia (recurrent); Z86.19 Personal history of other infectious and parasitic diseases; Z92.21 Personal history of antineoplastic chemotherapy; Z91.048 Other nonmedicinal substance allergy status; Z82.49 Family history of ischemic heart disease and other diseases of the circulatory system; Z82.5 Family history of asthma and other chronic lower respiratory diseases; Z83.42 Family history of familial hypercholesterolemia; Z83.49 Family history of other endocrine, nutritional and metabolic diseases; Z80.0 Family history of malignant neoplasm of digestive organs; Z80.1 Family history of malignant neoplasm of trachea, bronchus and lung; Z82.61 Family history of arthritis; Z79.01 Long term (current) use of anticoagulants; Z79.1 Long term (current) use of non-steroidal anti-inflammatories (NSAID); Z79.890 Hormone replacement therapy; Z79.891 Long term (current) use of opiate analgesic; Z79.899 Other long term (current) drug therapy; Z79.51 Long term (current) use of inhaled steroids; Z91.011 Allergy to milk products; Z88.1 Allergy status to other antibiotic agents; Z88.5 Allergy status to narcotic agent; Z88.0 Allergy status to penicillin; Z88.8 Allergy status to other drugs, medicaments and biological substances; Z91.018 Allergy to other foods
CPT/HCPCS: 31599; L8509; J2250; J0360; J1100; J2405; J3010; J2704; J1170

== ENCOUNTER → 2020-06-09 | Outpatient (CLI) | payer MEDICARE ==
[2020-06-09 12:32] LABS: African American GFR (CKD) 37.7 (60.0-200.0); Albumin 4.7 g/dL (3.80-4.90); Albumin/Globulin Ratio 2.24 (1.60-3.17); Anion Gap 11.4 mmol/L (4.00-12.00); BUN/Creat Ratio 19.38 Ratio (12.00-20.00); Calcium 10.5 mg/dL (8.7-10.3); Carbon Dioxide 22.6 mmol/L (21.6-31.8); Chol/HDL Ratio 1.78; Globulin 2.1 g/dL (1.6-3.3); LDL Cholesterol,Calculated 3.6 mg/dL (0.0-131.0); Non-African American GFR(CKD) 32.5 (60.0-200.0); Potassium 5.1 mmol/L (3.5-5.5); Total Bilirubin 0.3 mg/dL (0.2-1.2); Total Protein 6.8 g/dL (6.2-8.2); VLDL Calculation 38.4 mg/dL (5.00-40.00)
[2020-06-09 13:56] LABS: Hemoglobin A1C 7.3 % (4.0-6.0)
[2020-06-09 22:19] LABS: Urine Creatinine 124.8 mg/dL
== END | disposition home or self-care (01) ==
LOC: LABWHC1 07:27
PROVIDERS: ATTEND Internal Medicine Cardiovascular Disease
DX: E78.2 Mixed hyperlipidemia (principal); E11.65 Type 2 diabetes mellitus with hyperglycemia
CPT/HCPCS: 36415; 80053; 80061; 82043; 82570; 83036; 84443

== ENCOUNTER → 2020-06-28 | Outpatient (CLI) | payer MEDICARE ==
--- NOTE | 2020-06-28 15:51 | CT ---
EXAMINATION TYPE: CT abdomen pelvis wo con DATE OF EXAM: 06/28/2020 HISTORY: Lower abdominal/pelvic tenderness. History of ovarian cancer. CT DLP: 1043 mGycm. Automated Exposure Control for Dose Reduction was Utilized. TECHNIQUE: CT scan of the abdomen and pelvis is performed with oral but without IV contrast. COMPARISON: CT abdomen and pelvis December 31, 2016 FINDINGS: Within the limitations of a non-contrast study, the following observations are made. LUNG BASES: There is new trace left pleural effusion. There is new small tiny right pleural effusion with associated compressive atelectasis. There is additional linear atelectasis in both lung bases po steriorly.. LIVER/GB: Cholecystectomy clips are redemonstrated. Liver is diffusely low dense relative to spleen c onsistent with diffuse fatty infiltration. Previously seen subcentimeter lesions on prior study are l ess well seen. There is stable 2.0 cm low dense lesion left hepatic lobe axial image 28 presumed mariya gn. Liver size is stable and upper limits of normal. , Bile duct measures upper limits of normal afte r cholecystectomy but unchanged from 2017 study image 46. PANCREAS: No significant abnormality is seen. SPLEEN: Splenomegaly remains present measuring 15.5 cm long axis coronal image 65 unchanged from prio r. ADRENALS: Stable 1.8 cm left adrenal mass axial image 25 consistent with benign lipid rich adenoma on dynamic workup September 15, 2018. KIDNEYS: No renal stones or hydronephrosis is present bilaterally. BOWEL: Oral contrast does not reach distal ileal loops in the right abdomen. No suspicious small or l arge bowel dilatation. Mild/moderate fecal prominence in the right and transverse colon. Sigmoid dive rticula in the sigmoid colon. No CT evidence for acute diverticulitis. GENITAL ORGANS: Uterus surgically absent. Occasional tiny pelvic phlebolith. No suspicious adnexal ma sses. Low-lying prominent pelvic structures consistent with pelvic floor relaxation redemonstrated. LYMPH NODES: No new greater than 1cm abdominal or pelvic lymph nodes are appreciated. OSSEOUS STRUCTURES: Mild disc space narrowing L4-L5 level. Sclerosis and narrowing with spurring at t he pubic symphysis is redemonstrated. Persistent sclerosis bilateral sacroiliac joints greater on the left. OTHER: Interval surgical repair of ventral wall hernia in the midline near axial image 61. IMPRESSION: No suspicious new mass or adenopathy identified to suggest neoplastic recurrence.
== END | disposition home or self-care (01) ==
LOC: RADCTMAIN 13:59
PROVIDERS: ATTEND Family Medicine
DX: R10.9 Unspecified abdominal pain (principal); Z85.43 Personal history of malignant neoplasm of ovary
CPT/HCPCS: 74176

== ENCOUNTER → 2020-07-14 | Outpatient (CLI) | payer MEDICARE ==
--- NOTE | 2020-07-15 03:17 | MR ---
EXAMINATION TYPE: MR brain wo con DATE OF EXAM: 07/14/2020 COMPARISON: 12/05/2015 HISTORY: Headaches Multiplanar multiecho imaging of the brain was performed without contrast. There is cerebral cortical atrophy. There is no mass effect nor midline shift. There is no sign of in tracranial hemorrhage. There is mucosal thickening in the right maxillary sinus. There is also spheno id and posterior ethmoid sinus mucosal thickening. There are scattered foci of increased signal on th e T2 and FLAIR images in the ellis-white matter junction of both cerebral hemispheres. Total number is less than 10 and these measure less than 5 mm. There is 4 mm focus of increased signal in the right side of the emerald. Sella turcica is normal. Corpus callosum shows mild thinning. IMPRESSION: No evidence of cortical infarct. Cerebral atrophy. Scattered white matter signal changes at the ellis- white matter junction both cerebral hemispheres more likely related to chronic small vessel ischemia. This is increased compared to old MR scan. No evidence of acute cortical infarct. There is sinusitis improved compared to old exam.
== END | disposition home or self-care (01) ==
LOC: RADMRIMAIN 20:38
PROVIDERS: ATTEND Family Medicine
DX: R90.82 White matter disease, unspecified (principal)
CPT/HCPCS: 70551

== ENCOUNTER 2020-08-18 09:30 | Day surgery (SDC) | payer MEDICARE ==
[2020-08-14 14:34] VITALS: BMI 33.3
[2020-08-18 10:16] LABS: Glucose,Whole Blood 330 mg/dL (75-99)
[2020-08-18 10:20] VITALS: RESP 16; TEMP 98.4
[2020-08-18] MEDS ORDERED: LIDOCAINE 1% INJ 10MG/ML (20 ML MDV) ONE (10:48)
[2020-08-18 14:11] VITALS: BP 172/82; PULSE 68
--- NOTE | 2020-08-18 14:46 | IR ---
EXAMINATION TYPE: IR cvc insert >=5 years DATE OF EXAM: 08/18/2020 COMPARISON: NONE CLINICAL HISTORY: infection Needs long-term intravenous access for antibiotics. PROCEDURE: Hand hygiene obtained with soap and water and alcohol-based hand rub. After informed consent, the skin overlying the left brachial vein was localized with ultrasound and n oted to be compressible and patent. An ultrasound image was obtained and submitted on the patient's chart. The overlying skin was prepped and draped and Lidocaine was used for local anesthesia. A ski n deidra was made with a scalpel. Access was gained to the vein under ultrasound guidance with a 21 ga uge needle and a 0.018 inch wire was advanced. Access site was dilated with Peel-Away sheath and cat heter tailored to the appropriate length and advanced such that the distal tip is at the cavoatrial j unction. Spot image was obtained verifying placement. Catheter was fixed to the skin and a sterile dressing was placed following hemostasis. Catheter was aspirated and flushed with saline. Patient w as discharged in stable condition without complication.Maximal barrier technique is utilized. Ultras ound image is documented on the chart. Ultrasound used with sterile technique. Fluoro time and fluoroscopic images submitted to document procedure: 161 images, 1.2 minutes fluorosc opy time IMPRESSION: STATUS POST ULTRASOUND AND FLUOROSCOPIC GUIDED PICC LINE PLACEMENT, READY FOR USE. THIS PROCEDURE WAS PERFORMED BY THE UNDERSIGNED.
== END 2020-08-18 11:35 | disposition home or self-care (01) ==
LOC: CATHCVL 09:30
PROVIDERS: ATTEND Radiology Diagnostic Radiology
DX: T85.79XA Infection and inflammatory reaction due to other internal prosthetic devices, implants and grafts, initial encounter (principal); J45.909 Unspecified asthma, uncomplicated; J43.9 Emphysema, unspecified; K21.9 Gastro-esophageal reflux disease without esophagitis; E11.9 Type 2 diabetes mellitus without complications; E03.9 Hypothyroidism, unspecified; E78.5 Hyperlipidemia, unspecified; F41.9 Anxiety disorder, unspecified; F32.9 Major depressive disorder, single episode, unspecified; G47.00 Insomnia, unspecified; G47.33 Obstructive sleep apnea (adult) (pediatric); G89.29 Other chronic pain; G93.9 Disorder of brain, unspecified; I11.9 Hypertensive heart disease without heart failure; I25.10 Atherosclerotic heart disease of native coronary artery without angina pectoris; I27.20 Pulmonary hypertension, unspecified; I48.0 Paroxysmal atrial fibrillation; I67.82 Cerebral ischemia; K59.00 Constipation, unspecified; I65.23 Occlusion and stenosis of bilateral carotid arteries; J38.01 Paralysis of vocal cords and larynx, unilateral; E78.00 Pure hypercholesterolemia, unspecified; M19.90 Unspecified osteoarthritis, unspecified site; M51.37 Other intervertebral disc degeneration, lumbosacral region; M50.30 Other cervical disc degeneration, unspecified cervical region; L30.9 Dermatitis, unspecified; Z87.81 Personal history of (healed) traumatic fracture; Z98.890 Other specified postprocedural states; Z88.8 Allergy status to other drugs, medicaments and biological substances; Z88.1 Allergy status to other antibiotic agents; Z88.5 Allergy status to narcotic agent; Z88.0 Allergy status to penicillin; Z79.899 Other long term (current) drug therapy; Z79.01 Long term (current) use of anticoagulants; Z79.891 Long term (current) use of opiate analgesic; Z79.2 Long term (current) use of antibiotics; Z79.51 Long term (current) use of inhaled steroids; Z79.890 Hormone replacement therapy; Z99.89 Dependence on other enabling machines and devices; Z87.891 Personal history of nicotine dependence; Z87.19 Personal history of other diseases of the digestive system; Z90.49 Acquired absence of other specified parts of digestive tract; Z90.710 Acquired absence of both cervix and uterus; Z98.51 Tubal ligation status; Z90.89 Acquired absence of other organs; Z91.09 Other allergy status, other than to drugs and biological substances; Z97.3 Presence of spectacles and contact lenses; Z86.69 Personal history of other diseases of the nervous system and sense organs; Z85.43 Personal history of malignant neoplasm of ovary; Z92.21 Personal history of antineoplastic chemotherapy; Z86.19 Personal history of other infectious and parasitic diseases; Z80.1 Family history of malignant neoplasm of trachea, bronchus and lung; Z82.49 Family history of ischemic heart disease and other diseases of the circulatory system; Z83.49 Family history of other endocrine, nutritional and metabolic diseases; Z80.0 Family history of malignant neoplasm of digestive organs; Z83.42 Family history of familial hypercholesterolemia
CPT/HCPCS: 36573; C1751; C1769

== ENCOUNTER → 2020-09-29 | Outpatient (CLI) | payer MEDICARE ==
--- NOTE | 2020-09-29 13:10 | CT ---
EXAMINATION TYPE: CT ChestAbdPelvis w con DATE OF EXAM: 09/29/2020 COMPARISON: June 28, 2020 HISTORY: F/U ovarian CA CT DLP: 1675.1 mGycm CONTRAST: CT scan of the chest, abdomen and pelvis is performed with Oral Contrast and with IV Contrast, patien t injected with 100 mL of Isovue 300. CT Chest: LUNGS: The lungs are clear and free of infiltrate or atelectasis. No pulmonary nodule or mass is det ected. No pleural effusion or CT evidence of interstitial lung disease. MEDIASTINUM: Thoracic aorta is of normal caliber. The heart is not enlarged. No evidence for media stinal mass or adenopathy. HILAR STRUCTURES: No evidence for mass. No hilar adenopathy is appreciated. OTHER: No significant abnormality. CONTRAST CT ABDOMEN AND PELVIS FINDINGS: LIVER/GB: Cholecystectomy clips are in place. No space occupying hepatic lesion. Biliary tree is of n ormal caliber. PANCREAS: No inflammation. No distinct mass. SPLEEN: No splenic enlargement. No lesion seen. ADRENALS: No nodule. No thickening. KIDNEYS/BLADDER: No hydronephrosis. No nephrolithiasis. No disctinct renal mass. BOWEL: Normal appendix. Normal bowel caliber. No inflammation. GENITAL ORGANS: Hysterectomy changes noted. No evidence for adnexal mass. LYMPH NODES: No greater than 1cm abdominal or pelvic lymph nodes are appreciated. AORTA: No significant abnormality. OSSEOUS STRUCTURES: No significant abnormality is seen. OTHER: No significant additional abnormality is seen. IMPRESSION: 1. No evidence for recurrent disease or metastatic disease.
== END | disposition home or self-care (01) ==
LOC: RADCTMAIN 10:54
PROVIDERS: ATTEND Internal Medicine Hematology & Oncology
DX: Z03.89 Encounter for observation for other suspected diseases and conditions ruled out (principal); C56.9 Malignant neoplasm of unspecified ovary; Z88.0 Allergy status to penicillin; Z88.1 Allergy status to other antibiotic agents; Z88.8 Allergy status to other drugs, medicaments and biological substances
CPT/HCPCS: 71260; 74177; 36415; Q9967

== ENCOUNTER → 2020-11-15 | Outpatient (CLI) | payer MEDICARE | END | disposition home or self-care (01) | LOC: LABWHC1 12:49 | PROVIDERS: ATTEND Otolaryngology | DX: J30.89 Other allergic rhinitis (principal) | CPT/HCPCS: 36415; 86001 ==

== ENCOUNTER → 2021-01-19 | Outpatient (CLI) | payer MEDICARE ==
[2021-01-19 11:20] LABS: Appearance,Urine Clear (Clear); Bilirubin,Urine Negative (Negative); Blood,Urine Negative (Negative); Color,Urine Yellow; Glucose,Urine (UA) Negative (Negative); Ketones,Urine Negative (Negative); Leukocyte Esterase,Urine Negative (Negative); Nitrite,Urine Negative (Negative); Protein,Urine Negative (Negative); Urobilinogen,Urine <2.0 mg/dL (<2.0)
[2021-01-19 14:51] LABS: Basophils # (A) 0.03 X 10*3/uL (0.00-0.10); Basophils % (A) 0.6 %; Eosinophils # (A) 0.06 X 10*3/uL (0.04-0.35); Eosinophils % (A) 1.2 %; HCT 38.7 % (37.2-46.3); HGB 12.6 g/dL (12.0-15.0); Lymphocytes # (A) 0.97 X 10*3/uL (0.90-5.00); Lymphocytes % (A) 20.2 %; MCH 27.2 pg (27.0-32.0); MCHC 32.6 g/dL (32.0-37.0); MCV 83.6 fL (80.0-97.0); Mean Platelet Volume 9.5 fL (9.5-12.2); Monocytes # (A) 0.26 X 10*3/uL (0.20-1.00); Monocytes % (A) 5.4 %; Neutrophils # (A) 3.47 X 10*3/uL (1.80-7.70); Neutrophils % (A) 72.2 %; Platelet Count 284 X 10*3/uL (140-440); RBC 4.63 X 10*6/uL (4.10-5.20); RDW 13.4 % (11.5-14.5); WBC 4.81 X 10*3/uL (4.50-10.00)
[2021-01-19 18:28] LABS: Hemoglobin A1C 6.2 % (4.0-6.0)
[2021-01-19 19:01] LABS: Protein, Total 6.2 g/dL (6.2-8.2)
[2021-01-19 19:26] LABS: % Iron Saturation 15.83 (12.00-45.00); Magnesium 1.7 mg/dL (1.5-2.4); Uric Acid 5.3 mg/dL (2.9-7.7); VLDL Calculation 22.2 mg/dL (5.00-40.00)
[2021-01-19 19:27] LABS: African American GFR (CKD) 66.1 (60.0-200.0); Albumin 4.5 g/dL (3.80-4.90); Albumin/Globulin Ratio 2.5 (1.60-3.17); Calcium 9.7 mg/dL (8.7-10.3); Carbon Dioxide 26.8 mmol/L (21.6-31.8); Globulin 1.8 g/dL (1.6-3.3); Total Bilirubin 0.5 mg/dL (0.2-1.2); Total Protein 6.3 g/dL (6.2-8.2)
[2021-01-19 22:06] LABS: Folate, Serum 6.7 ng/mL
[2021-01-19 22:12] LABS: Anion Gap 11.2 mmol/L (4.00-12.00); Chol/HDL Ratio 1.98; LDL Cholesterol,Calculated 24.8 mg/dL (0.0-131.0); Potassium 4.2 mmol/L (3.5-5.5)
[2021-01-20 00:55] LABS: Urine Creatinine 90.4 mg/dL
[2021-01-22 12:02] LABS: Albumin 3.76 g/dL (3.80-4.90); Gamma Globulin 0.59 g/dL (0.70-1.50)
== END | disposition home or self-care (01) ==
LOC: LABWHC1 09:59
PROVIDERS: ATTEND Internal Medicine Endocrinology, Diabetes & Metabolism
DX: E78.5 Hyperlipidemia, unspecified (principal); E55.9 Vitamin D deficiency, unspecified; E11.65 Type 2 diabetes mellitus with hyperglycemia; I25.10 Atherosclerotic heart disease of native coronary artery without angina pectoris; R53.83 Other fatigue; R63.4 Abnormal weight loss
CPT/HCPCS: 36415; 80053; 80061; 81003; 82043; 82306; 82550; 82570; 82607; 82746; 83036; 83540; 83550; 83615; 83735; 84165; 84403; 84443; 84550; 85025; 87086

== ENCOUNTER → 2021-05-04 | Outpatient (CLI) | payer MEDICARE ==
--- NOTE | 2021-05-04 15:17 | CT ---
EXAMINATION TYPE: CT sinus wo con DATE OF EXAM: 05/04/2021 COMPARISON: 03/09/2013 HISTORY: Recurrent sinus infections CT DLP: 562 mGycm CONTRAST: 0 mL of Isovue 300 The paranasal sinuses are examined in the axial plane at 2 mm thick sections. Reconstructed images i n the coronal plane were obtained. Mucosal thickening is within the right maxillary sinus. And post ethmoidectomy changes. Some mucosal thickening is within the residual ethmoid air cells. The sphenoid sinuses are clear. The frontal s inuses are clear. The septum is evaluated. Septum appears midline Mastoid air cells are clear. Ostiomeatal units are widely patent IMPRESSIONS: 1. Post sinus surgical changes. 2. Mucosal thickening remaining within the right maxillary sinus and within the ethmoid air spaces
== END | disposition home or self-care (01) ==
LOC: RADCTMAIN 14:20
PROVIDERS: ATTEND Otolaryngology
DX: J34.89 Other specified disorders of nose and nasal sinuses (principal)
CPT/HCPCS: 70486

== ENCOUNTER → 2021-05-30 | Outpatient (CLI) | payer MEDICARE ==
[2021-05-30 18:34] LABS: Basophils # (A) 0.02 X 10*3/uL (0.00-0.10); Basophils % (A) 0.4 %; Eosinophils # (A) 0.02 X 10*3/uL (0.04-0.35); Eosinophils % (A) 0.4 %; HCT 38.1 % (37.2-46.3); HGB 12.1 g/dL (12.0-15.0); Lymphocytes # (A) 0.87 X 10*3/uL (0.90-5.00); Lymphocytes % (A) 17.2 %; MCH 27.1 pg (27.0-32.0); MCHC 31.8 g/dL (32.0-37.0); MCV 85.4 fL (80.0-97.0); Mean Platelet Volume 9.7 fL (9.5-12.2); Monocytes # (A) 0.24 X 10*3/uL (0.20-1.00); Monocytes % (A) 4.7 %; Neutrophils # (A) 3.89 X 10*3/uL (1.80-7.70); Neutrophils % (A) 76.9 %; Platelet Count 237 X 10*3/uL (140-440); RBC 4.46 X 10*6/uL (4.10-5.20); RDW 13.6 % (11.5-14.5); WBC 5.06 X 10*3/uL (4.50-10.00)
[2021-05-31 05:08] LABS: African American GFR (CKD) 66.1 (60.0-200.0); Albumin 4.6 g/dL (3.80-4.90); Anion Gap 6.7 mmol/L (4.00-12.00); Calcium 9.5 mg/dL (8.7-10.3); Carbon Dioxide 27.3 mmol/L (21.6-31.8); Chol/HDL Ratio 2.3; Globulin 2.3 g/dL (1.6-3.3); LDL Cholesterol,Calculated 25.2 mg/dL (0.0-131.0); Total Bilirubin 0.4 mg/dL (0.3-1.2); Total Protein 6.9 g/dL (6.2-8.2); VLDL Calculation 35.8 mg/dL (5.00-40.00)
== END | disposition home or self-care (01) ==
LOC: LABWHC1 09:55
PROVIDERS: ATTEND Internal Medicine Cardiovascular Disease
DX: E78.2 Mixed hyperlipidemia (principal); I10 Essential (primary) hypertension
CPT/HCPCS: 36415; 80053; 80061; 85025

== ENCOUNTER → 2021-12-03 | Outpatient (CLI) | payer MEDICARE ==
[2021-12-03 14:54] LABS: ALT 22 U/L (8-44); AST 19 U/L (13-35); African American GFR (CKD) 64.1 (60.0-200.0); Albumin 4.4 g/dL (3.8-4.9); Alkaline Phosphatase 72 U/L (41-126); BUN/Creat Ratio 19.51 Ratio (12.00-20.00); Blood Urea Nitrogen 19.9 mg/dL (9.0-27.0); Calcium 9.6 mg/dL (8.7-10.3); Carbon Dioxide 26.3 mmol/L (20.0-27.5); Chloride 96 mmol/L (96-109); Chol/HDL Ratio 1.97 Ratio; Globulin 2.6 g/dL (1.6-3.3); Glucose 264 mg/dL (70-110); LDL Cholesterol,Calculated 17.4 mg/dL (0.0-131.0); Non-African American GFR(CKD) 55.3 (60.0-200.0); Potassium 4.2 mmol/L (3.5-5.5); Sodium 134 mmol/L (135-145)
[2021-12-03 19:48] LABS: Urine Creatinine 75.9 mg/dL (28.0-217.0)
== END | disposition home or self-care (01) ==
LOC: LABWHC1 10:29
PROVIDERS: ATTEND Internal Medicine Endocrinology, Diabetes & Metabolism
DX: E11.65 Type 2 diabetes mellitus with hyperglycemia (principal)
CPT/HCPCS: 36415; 80053; 80061; 82043; 82570; 83036; 84443

== ENCOUNTER → 2021-12-07 | Outpatient (CLI) | payer MEDICARE ==
--- NOTE | 2021-12-10 10:19 | MM ---
Reason for exam: screening (asymptomatic). Last mammogram was performed 3 years and 3 months ago. History: Patient is postmenopausal and has history of ovarian cancer at age 51. Took estrogen for 5 years. Took unspecified hormones for 5 years. Physical Findings: A clinical breast exam by your physician is recommended on an annual basis and results should be correlated with mammographic findings. MG 3D Screening Mammo W/Cad Bilateral CC and MLO view(s) were taken. Prior study comparison: September 01, 2018, bilateral MG 3d screening mammo w/cad. July 31, 2017, left breast MG 3d diag mammo w/cad LT. There are scattered fibroglandular densities. There are benign appearing round, linear, vascular calcifications bilaterally. There is chronic nodularity bilaterally. There is no discrete abnormality. ASSESSMENT: Benign, BI-RAD 2 RECOMMENDATION: Routine screening mammogram of both breasts in 1 year.
== END | disposition home or self-care (01) ==
LOC: RADMAMWWP 10:55
PROVIDERS: ATTEND Family Medicine
DX: Z12.31 Encounter for screening mammogram for malignant neoplasm of breast (principal); Z78.0 Asymptomatic menopausal state
CPT/HCPCS: 77063; 77067

== ENCOUNTER → 2022-05-22 | Outpatient (CLI) | payer MEDICARE | END | disposition home or self-care (01) | LOC: LABWHC1 16:01 | PROVIDERS: ATTEND Nurse Practitioner Family | DX: I10 Essential (primary) hypertension (principal); D50.9 Iron deficiency anemia, unspecified | CPT/HCPCS: 36415; 82088; 82272; 82533; 83835; 84244 ==

== ENCOUNTER 2022-06-16 13:51 | Emergency (ER) | payer MEDICARE ==
[2022-06-16 14:07] VITALS: RESP 18
--- NOTE | 2022-06-16 15:05 | ED ---
Fever HPI - General Chief Complaint: Fever Stated Complaint: Covid + Time Seen by Provider: 06/16/22 14:17 Source: patient Mode of arrival: ambulatory Limitations: no limitations - History of Present Illness Initial Comments: Patient is a 72-year-old female with past medical history significant for COPD who presents to the emergency department with a chief complaint of COVID-19 infection. Patient states her is COVID-19 and she tested positive today. Patient endorses nasal congestion and fever. States she isn't taking Tylenol for fever, last dose 3 hours ago. States she is not able to take anti- inflammatories. States she is a little bit more short of breath than her baseline. Denies chest pain, cough, abdominal pain, nausea, vomiting, leg swelling, leg pain, and other concerns. Patient would like antibodies. - Related Data Home Medications Medication Instructions Recorded Confirmed Albuterol Sulfate [Proair Hfa] 2 puff INHALATION TID PRN 02/02/15 05/27/22 Fenofibrate Nanocrystallized 145 mg PO DAILY 02/02/15 05/27/22 [Fenofibrate] Fluticasone Propionate [Flonase 1 spray EA NOSTRIL HS 02/02/15 05/27/22 Allergy Relief] Levothyroxine Sodium [Levoxyl] 25 mcg PO QAM 02/02/15 05/27/22 Montelukast [Singulair] 10 mg PO QAM 02/02/15 05/27/22 Gabapentin [Neurontin] 300 mg PO BID 01/13/17 05/27/22 Bisoprolol Fumarate [Zebeta] 5 mg PO BID 05/25/20 05/27/22 Cholecalciferol [Vitamin D3 (25 5,000 unit PO DAILY 05/25/20 05/27/22 Mcg = 1000 Iu)] Famotidine [Pepcid] 20 mg PO BID 05/25/20 05/27/22 buPROPion HCL [Wellbutrin XL] 300 mg PO DAILY 05/25/20 05/27/22 metroNIDAZOLE 1% GEL [Metrogel 1%] 1 applic TOPICAL BID 05/25/20 05/27/22 Baclofen 10 mg PO TID 05/24/22 05/27/22 Empagliflozin [Jardiance] 25 mg PO DAILY 05/24/22 05/27/22 Ezetimibe [Zetia] 10 mg PO DAILY 05/24/22 05/27/22 Fluticasone/Vilanterol [Breo 1 inhalation INHALATION DAILY 05/24/22 05/27/22 Ellipta 200-25 Mcg Inhaler] Folic Acid 400 mcg PO DAILY 05/24/22 05/27/22 NIFEdipine [NIFEdipine ER 60 mg PO DAILY 05/24/22 05/27/22 (Osmotic)] Nitroglycerin 0.2MG/Hr Patch 1 patch TRANSDERM DAILY 05/24/22 05/27/22 [Nitro-Dur 0.2MG/Hr Patch] Pantoprazole [Protonix] 40 mg PO DAILY 05/24/22 05/27/22 Potassium Chloride [Klor-Con 8] 8 meq PO DAILY 05/24/22 05/27/22 Sacubitril/Valsartan [Entresto 24 1 each PO BID 05/24/22 05/27/22 mg-26 mg Tablet] Torsemide [Demadex] 5 mg PO DAILY 05/24/22 05/27/22 Umeclidinium Bimble [Incruse 2 puff INHALATION HS 05/24/22 05/27/22 Ellipta] Vilazodone HCl [Viibryd] 10 mg PO DAILY 05/24/22 05/27/22 Previous Rx's Medication Instructions Recorded Albuterol Nebulized [Ventolin 2.5 mg INHALATION Q4H PRN #75 ml 06/16/22 Nebulized] Allergies Allergy/AdvReac Type Severity Reaction Status Date / Time amlodipine [From Norvasc] Allergy SOB,lightheaded,muscle Verified 06/16/22 14:07 cramps brompheniramine Allergy VISION Verified 06/16/22 14:07 [From Dimeta DM Cold-Cough PROBLEM (PE)] buspirone [From BuSpar] Allergy lightheaded Verified 06/16/22 14:07 dextromethorphan Allergy VISION Verified 06/16/22 14:07 [From Dimeta DM Cold-Cough PROBLEM (PE)] diltiazem Allergy heart Verified 06/16/22 14:07 pounding isosorbide Allergy lightheaded Verified 06/16/22 14:07 metoprolol Allergy severe Verified 06/16/22 14:07 wheezing morphine Allergy Hallucinati Verified 06/16/22 14:07 ons neomycin Allergy redness,itc Verified 06/16/22 14:07 carmela Penicillins Allergy Rash/Hives Verified 06/16/22 14:07 phenylephrine Allergy VISION Verified 06/16/22 14:07 [From Dimetapp DM Cold-Cough PROBLEM (PE)] pseudoephedrine Allergy tunnel Verified 06/16/22 14:07 [From Actifed] vision triprolidine [From Actifed] Allergy tunnel Verified 06/16/22 14:07 vision ranolazine [From Ranexa] AdvReac constipatio Verified 06/16/22 14:07 n tetracycline AdvReac SEVERE Verified 06/16/22 14:07 CONSTIPATION verapamil AdvReac constipatio Verified 06/16/22 14:07 n Review of Systems ROS Statement: Those systems with pertinent positive or pertinent negative responses have been documented in the HPI. ROS Other: All systems not noted in ROS Statement are negative. Past Medical History Past Medical History: Atrial Fibrillation, Asthma, Coronary Artery Disease (CAD), COPD, Diabetes Mellitus, GERD/Reflux, Hypertension, Osteoarthritis (OA), Pneumonia, Sleep Apnea/CPAP/BIPAP, Thyroid Disorder Additional Past Medical History / Comment(s): SOB, Hx precancerous colon polyps, ovarian cancer with surgery,chemo & radiation tx 2000., left vocal cord paralysis, neuropathy legs & feet, rosacea., chronic gastritis, uses cane for balance, emphysema, sleep apnea with c-pap., hx of fall on ice with surgery left ankle-now has non-healing wound, states surgery to remove hardware scheduled at [facility] on 08/21/20. History of Any Multi-Drug Resistant Organisms: None Reported Past Surgical History: Cholecystectomy, Heart Catheterization, Hernia Repair, Hysterectomy, Tonsillectomy, Tubal Ligation Additional Past Surgical History / Comment(s): hernia x2, port a cath inserted & removed.,heart cath May 2020 vocal cord surgery., left ankle surgery January 2019. Past Anesthesia/Blood Transfusion Reactions: Previous Problems w/ Anesthesia Additional Past Anesthesia/Blood Transfusion Reaction / Comment(s): states elevated bloodpressure after surgery. Past Psychological History: Anxiety, Depression Smoking Status: Former smoker Past Alcohol Use History: None Reported Past Drug Use History: None Reported - Past Family History Sister(s) Family Medical History: Cancer Additional Family Medical History / Comment(s): skin cancer Mother Family Medical History: Cancer Additional Family Medical History / Comment(s): small cell lung cancer Father Family Medical History: Cancer Additional Family Medical History / Comment(s): colon & skin cancer General Exam Limitations: no limitations General appearance: alert, in no apparent distress Head exam: Present: atraumatic, normocephalic, normal inspection Eye exam: Present: normal appearance, PERRL, EOMI. Absent: scleral icterus, conjunctival injection, periorbital swelling Respiratory exam: Present: normal lung sounds bilaterally. Absent: respiratory distress, wheezes, rales, rhonchi, stridor Cardiovascular Exam: Present: regular rate, normal rhythm, normal heart sounds. Absent: systolic murmur, diastolic murmur, rubs, gallop, clicks GI/Abdominal exam: Present: soft, normal bowel sounds. Absent: distended, tenderness, guarding, rebound, rigid Neurological exam: Present: alert, oriented X3, CN II-XII intact Psychiatric exam: Present: normal affect, normal mood Skin exam: Present: warm, dry, intact, normal color. Absent: rash Course Vital Signs 06/16/22 06/16/22 14:04 15:43 Temperature 100.9 F H 101.3 F H Pulse Rate 63 69 Respiratory 18 18 Rate Blood Pressure 137/64 146/62 O2 Sat by Pulse 98 99 Oximetry Medical Decision Making - Medical Decision Making This is a 72-year-old female who presents with COVID-19 infection seeking antibodies. Thorough history and examination were performed. Patient is well- appearing. Vitals stable. She is not hypoxic. Lungs are clear to auscultation bilaterally. COVID-19 is detected. Chest x-ray is negative for acute process. Unfortunately we do not have antibodies at this time. Patient will be discharged with Paxlovid the prescription adjusted for decreased GFR. Her medication list was reviewed carefully for possible interaction. Return parameters discussed. Patient verbalizes understanding and is agreeable to this plan. Dr. Kaiser is my attending. - Lab Data Lab Results 06/16/22 Range/Units 14:34 Coronavirus (PCR) Detected A (Not Detectd) Disposition Clinical Impression: COVID-19, Fever Disposition: HOME SELF-CARE Condition: Good Instructions (If sedation given, give patient instructions): Coronavirus Disease 2019 (COVID-19) Additional Instructions: Please take prescription to pharmacy for antibody treatment. Take Tylenol every 4-6 hours for fever. Use albuterol in nebulizer for shortness of breath. Quarantine at home for 5 days. Return to the emergency department if you experience new, concerning, or worsening symptoms. Prescriptions: Albuterol Nebulized [Ventolin Nebulized] 2.5 mg INHALATION Q4H PRN #75 ml PRN Reason: difficulty in breathing Is patient prescribed a controlled substance at d/c from ED?: No Referrals: Pool Kim MD [Primary Care Provider] - 1-2 days
--- NOTE | 2022-06-16 15:16 | XR ---
EXAMINATION TYPE: XR chest 2V DATE OF EXAM: 06/16/2022 COMPARISON: 11/22/2020 HISTORY: Short of breath TECHNIQUE: FINDINGS: There is no heart failure nor confluent pneumonic infiltrate. Costophrenic angles are clear . Bony thorax is intact. IMPRESSION: No active cardiopulmonary disease. Normal heart.
[2022-06-16 15:49] VITALS: BP 146/62; PULSE 69; TEMP 101.3
== END 2022-06-16 15:49 | disposition home or self-care (01) ==
LOC: EC 13:51
DX: U07.1 COVID-19 (principal); J45.909 Unspecified asthma, uncomplicated; E11.9 Type 2 diabetes mellitus without complications; I10 Essential (primary) hypertension; Z87.891 Personal history of nicotine dependence; Z88.5 Allergy status to narcotic agent; Z88.1 Allergy status to other antibiotic agents; Z88.6 Allergy status to analgesic agent
CPT/HCPCS: 71046; 87635; 99284

== ENCOUNTER 2022-06-20 01:26 | Inpatient (IN) | payer MEDICARE ==
[2022-06-20] MEDS ORDERED: ONDANSETRON 4 MG/2 ML VIAL IVP STA (02:00)
[2022-06-20] MEDS ORDERED: SODIUM CHLORIDE 0.9% 1,000 ML IV STA (02:00)
[2022-06-20] MEDS ORDERED: FAMOTIDINE 20 MG/2 ML VIAL IV STA (02:01)
--- NOTE | 2022-06-20 02:05 | ED ---
Abdominal Pain HPI - General Source: patient, family, RN notes reviewed Mode of arrival: wheelchair <Nino Delvalle - Last Filed: 06/20/22 04:18> <Stephen Vitale - Last Filed: 06/20/22 04:37> - General Chief Complaint: Abdominal Pain Stated Complaint: Poss allergic reaction Time Seen by Provider: 06/20/22 01:54 - History of Present Illness Initial Comments: This is a pleasant 72-year-old female who presents to the emergency department complaining of epigastric discomfort, nausea, vomiting. Patient believes the medication she is been taking for COVID-19 are upsetting her stomach. Patient is on dexamethasone, Paxlovid, patient was just started on glimepiride for elevated blood sugars. Apparently this was called in by her new physician, Dr. Kim. Patient denying any chest pain. Denies any hemoptysis. Vomitus is essentially what the patient ate. Patient states she ate chili dogs prior to arrival. No headache, no fever or chills, no changes in vision or hearing, no sore throat or difficulty with speech, no neck pain, no chest pain or shortness of breath, no changes in urination or bowel movements, no numbness or tingling, no extremity pain, no skin rashes or lesions. Past medical, surgical, social, and family history reviewed. (Nino Delvalle) - Related Data Home Medications Medication Instructions Recorded Confirmed Albuterol Sulfate [Proair Hfa] 2 puff INHALATION TID PRN 02/02/15 05/27/22 Fenofibrate Nanocrystallized 145 mg PO DAILY 02/02/15 05/27/22 [Fenofibrate] Fluticasone Propionate [Flonase 1 spray EA NOSTRIL HS 02/02/15 05/27/22 Allergy Relief] Levothyroxine Sodium [Levoxyl] 25 mcg PO QAM 02/02/15 05/27/22 Montelukast [Singulair] 10 mg PO QAM 02/02/15 05/27/22 Gabapentin [Neurontin] 300 mg PO BID 01/13/17 05/27/22 Bisoprolol Fumarate [Zebeta] 5 mg PO BID 05/25/20 05/27/22 Cholecalciferol [Vitamin D3 (25 5,000 unit PO DAILY 05/25/20 05/27/22 Mcg = 1000 Iu)] Famotidine [Pepcid] 20 mg PO BID 05/25/20 05/27/22 buPROPion HCL [Wellbutrin XL] 300 mg PO DAILY 05/25/20 05/27/22 metroNIDAZOLE 1% GEL [Metrogel 1%] 1 applic TOPICAL BID 05/25/20 05/27/22 Baclofen 10 mg PO TID 05/24/22 05/27/22 Empagliflozin [Jardiance] 25 mg PO DAILY 05/24/22 05/27/22 Ezetimibe [Zetia] 10 mg PO DAILY 05/24/22 05/27/22 Fluticasone/Vilanterol [Breo 1 inhalation INHALATION DAILY 05/24/22 05/27/22 Ellipta 200-25 Mcg Inhaler] Folic Acid 400 mcg PO DAILY 05/24/22 05/27/22 NIFEdipine [NIFEdipine ER 60 mg PO DAILY 05/24/22 05/27/22 (Osmotic)] Nitroglycerin 0.2MG/Hr Patch 1 patch TRANSDERM DAILY 05/24/22 05/27/22 [Nitro-Dur 0.2MG/Hr Patch] Pantoprazole [Protonix] 40 mg PO DAILY 05/24/22 05/27/22 Potassium Chloride [Klor-Con 8] 8 meq PO DAILY 05/24/22 05/27/22 Sacubitril/Valsartan [Entresto 24 1 each PO BID 05/24/22 05/27/22 mg-26 mg Tablet] Torsemide [Demadex] 5 mg PO DAILY 05/24/22 05/27/22 Umeclidinium [place] [Incruse 2 puff INHALATION HS 05/24/22 05/27/22 Ellipta] Vilazodone HCl [Viibryd] 10 mg PO DAILY 05/24/22 05/27/22 Previous Rx's Medication Instructions Recorded Albuterol Nebulized [Ventolin 2.5 mg INHALATION Q4H PRN #75 ml 06/16/22 Nebulized] Allergies Allergy/AdvReac Type Severity Reaction Status Date / Time amlodipine [From [facility]] Allergy SOB,lightheaded,muscle Verified 06/20/22 01:34 cramps brompheniramine Allergy VISION Verified 06/20/22 01:34 [From [facility] DM Cold-Cough PROBLEM (PE)] buspirone [From [facility]] Allergy lightheaded Verified 06/20/22 01:34 dextromethorphan Allergy VISION Verified 06/20/22 01:34 [From [facility] DM Cold-Cough PROBLEM (PE)] diltiazem Allergy heart Verified 06/20/22 01:34 pounding isosorbide Allergy lightheaded Verified 06/20/22 01:34 metoprolol Allergy severe Verified 06/20/22 01:34 wheezing morphine Allergy Hallucinati Verified 06/20/22 01:34 ons neomycin Allergy redness,itc Verified 06/20/22 01:34 carmela Penicillins Allergy Rash/Hives Verified 06/20/22 01:34 phenylephrine Allergy VISION Verified 06/20/22 01:34 [From [facility] DM Cold-Cough PROBLEM (PE)] pseudoephedrine Allergy tunnel Verified 06/20/22 01:34 [From [facility]] vision triprolidine [From Actifed] Allergy tunnel Verified 06/20/22 01:34 vision ranolazine [From Ranexa] AdvReac constipatio Verified 06/20/22 01:34 n tetracycline AdvReac SEVERE Verified 06/20/22 01:34 CONSTIPATION verapamil AdvReac constipatio Verified 06/20/22 01:34 n Review of Systems ROS Other: All systems not noted in ROS Statement are negative. <Nino Delvalle - Last Filed: 06/20/22 04:18> ROS Other: All systems not noted in ROS Statement are negative. <Stephen Vitale - Last Filed: 06/20/22 04:37> ROS Statement: Those systems with pertinent positive or pertinent negative responses have been documented in the HPI. Past Medical History Past Medical History: Atrial Fibrillation, Asthma, Coronary Artery Disease (CAD), COPD, Diabetes Mellitus, GERD/Reflux, Hypertension, Osteoarthritis (OA), Pneumonia, Sleep Apnea/CPAP/BIPAP, Thyroid Disorder Additional Past Medical History / Comment(s): SOB, Hx precancerous colon polyps, ovarian cancer with surgery,chemo & radiation tx 2000., left vocal cord paralysis, neuropathy legs & feet, rosacea., chronic gastritis, uses cane for balance, emphysema, sleep apnea with c-pap., hx of fall on ice with surgery left ankle-now has non-healing wound, states surgery to remove hardware scheduled at [facility] on 08/21/20. History of Any Multi-Drug Resistant Organisms: None Reported Past Surgical History: Cholecystectomy, Heart Catheterization, Hernia Repair, Hysterectomy, Tonsillectomy, Tubal Ligation Additional Past Surgical History / Comment(s): hernia x2, port a cath inserted & removed.,heart cath 2018, May 2020 vocal cord surgery., left ankle surgery January 2019. Past Anesthesia/Blood Transfusion Reactions: Previous Problems w/ Anesthesia Additional Past Anesthesia/Blood Transfusion Reaction / Comment(s): states elevated bloodpressure after surgery. Past Psychological History: Anxiety, Depression Smoking Status: Former smoker Past Alcohol Use History: None Reported Past Drug Use History: None Reported - Past Family History Sister(s) Family Medical History: Cancer Additional Family Medical History / Comment(s): skin cancer Mother Family Medical History: Cancer Additional Family Medical History / Comment(s): small cell lung cancer Father Family Medical History: Cancer Additional Family Medical History / Comment(s): colon & skin cancer <Nino Delvalle - Last Filed: 06/20/22 04:18> General Exam General appearance: alert, in no apparent distress Head exam: Present: atraumatic, normocephalic, normal inspection Eye exam: Present: normal appearance, PERRL, EOMI. Absent: scleral icterus, conjunctival injection, periorbital swelling ENT exam: Present: normal exam, mucous membranes moist, normal external ear exam. Absent: mucous membranes dry Neck exam: Present: normal inspection, full ROM. Absent: tenderness, meningismus, lymphadenopathy Respiratory exam: Present: normal lung sounds bilaterally. Absent: respiratory distress, wheezes, rales, rhonchi, stridor Cardiovascular Exam: Present: regular rate, normal rhythm, normal heart sounds. Absent: systolic murmur, diastolic murmur, rubs, gallop, clicks GI/Abdominal exam: Present: soft, tenderness (Very minimal epigastric tenderness), normal bowel sounds. Absent: distended, guarding, rebound, rigid Extremities exam: Present: normal inspection, full ROM, normal capillary refill. Absent: tenderness, pedal edema, joint swelling, calf tenderness Back exam: Present: normal inspection Neurological exam: Present: alert, oriented X3, CN II-XII intact Psychiatric exam: Present: normal affect, normal mood Skin exam: Present: warm, dry, intact, normal color. Absent: rash, cyanosis, diaphoretic, erythema, urticaria, vesicles <MookNino - Last Filed: 06/20/22 04:18> - General Exam Comments Initial Comments: Vital signs stable, patient afebrile. Patient did vomit when I was in the room. However she appears to be in no respiratory distress. Appears to be adequately hydrated. Vomitus consisted of what appears to be undigested chili dog. (Nino Delvalle) Course <Nino Delvalle - Last Filed: 06/20/22 04:18> Vital Signs 06/20/22 01:28 Temperature 98.3 F Pulse Rate 58 L Respiratory 22 Rate Blood Pressure 129/76 O2 Sat by Pulse 97 Oximetry - Reevaluation(s) Reevaluation #1: 06/20/22 03:30 Reevaluation, patient no better. Computed tomography scan ordered as the patient has a abnormal finding on plain film x-ray consistent with obstructive pattern. (Nino Delvalle) Medical Decision Making - Lab Data Result diagrams: 06/20/22 02:42 06/20/22 02:42 - Radiology Data Radiology results: report reviewed, image reviewed <Nino Delvalle - Last Filed: 06/20/22 04:18> - Lab Data Result diagrams: 06/20/22 02:42 06/20/22 02:42 - EKG Data -: EKG Interpreted by Me (EKG sinus 60 FL 208 QRS 105 QTC 431) <Stephen Vitale - Last Filed: 06/20/22 04:37> - Medical Decision Making Suspect the patient's symptomology is related to multiple medications she is taking along with the current COVID-19 infection. Patient appears to be adequately hydrated. We'll control the patient's vomiting, order a general abdominal workup and plan for reevaluation. Computed tomography scan pending. Patient turned over to the ED attending oly nicole at 4 AM. Admission pending. Patient endorsed to the ED attending physician, Dr. Vitale, . Additional labs pending. (Nino Delvalle) - Lab Data Lab Results 06/20/22 06/20/22 06/20/22 Range/Units 02:42 02:42 04:28 WBC 12.4 H (3.8-10.6) k/uL RBC 4.72 (3.80-5.40) m/uL Hgb 13.8 (11.4-16.0) gm/dL Hct 42.6 (34.0-46.0) % MCV 90.1 (80.0-100.0) fL MCH 29.2 (25.0-35.0) pg MCHC 32.4 (31.0-37.0) g/dL RDW 15.2 (11.5-15.5) % Plt Count 444 (150-450) k/uL MPV 7.4 Neutrophils % 93 % Lymphocytes % 4 % Monocytes % 2 % Eosinophils % 0 % Basophils % 0 % Neutrophils # 11.5 H (1.3-7.7) k/uL Lymphocytes # 0.6 L (1.0-4.8) k/uL Monocytes # 0.3 (0-1.0) k/uL Eosinophils # 0.0 (0-0.7) k/uL Basophils # 0.0 (0-0.2) k/uL Sodium 137 (137-145) mmol/L Potassium 5.2 H (3.5-5.1) mmol/L Chloride 98 (98-107) mmol/L Carbon Dioxide 19 L (22-30) mmol/L Anion Gap 20 mmol/L BUN 46 H (7-17) mg/dL Creatinine 1.36 H (0.52-1.04) mg/dL Est GFR (CKD-EPI)AfAm 45 (>60 ml/min/1.73 sqM) Est GFR (CKD-EPI)NonAf 39 (>60 ml/min/1.73 sqM) Glucose 474 H (74-99) mg/dL POC Glucose (mg/dL) 357 H (70-110) mg/dL POC Glu [place] ID Shlomo Finch Calcium 9.9 (8.4-10.2) mg/dL Total Bilirubin 0.5 (0.2-1.3) mg/dL AST 22 (14-36) U/L ALT 18 (4-34) U/L Alkaline Phosphatase 67 (38-126) U/L Total Protein 7.8 (6.3-8.2) g/dL Albumin 5.0 (3.5-5.0) g/dL Lipase 75 (23-300) U/L - EKG Data EKG Comments: EKG shows sinus rhythm with rate of 60, poor R-wave progression, no acute ST or T-wave changes. FL interval 208 ms. Other intervals are normal. Normal QRS morphology (Nino Delvalle) Disposition Is patient prescribed a controlled substance at d/c from ED?: No Time of Disposition: 03:31 Decision to Admit Reason: Admit from EC Decision Time: 03:31 <Nino Delvalle - Last Filed: 06/20/22 04:18> <Stephen Vitale - Last Filed: 06/20/22 04:37> Clinical Impression: COVID-19, Small bowel obstruction, Hyperglycemia due to type 2 diabetes mellitus Disposition: ADMITTED IP TO THIS HOSP Condition: Fair Referrals: Pool Kim MD [Primary Care Provider] - 1-2 days
--- NOTE | 2022-06-20 03:05 | XR ---
EXAMINATION TYPE: XR abdomen acute w cxr DATE OF EXAM: 06/20/2022 COMPARISON: 06/16/2022 HISTORY: Abdominal pain TECHNIQUE: 4 views FINDINGS: Heart and mediastinum are normal. Lungs are clear. Diaphragm is normal. Bony thorax is inta ct. Bowel gas pattern shows distended gas-filled small bowel loops in the midabdomen. No free air. Th ere are clips from cholecystectomy. IMPRESSION: There are dilated small bowel loops that could be a mechanical small bowel obstruction. N o sign of free air. No sign of acute lung disease. Heart and lungs not changed compared to old exam.
[2022-06-20 03:06] LABS: Basophils % (A) 0 %; Eosinophils % (A) 0 %; HCT 42.6 % (34.0-46.0); HGB 13.8 gm/dL (11.4-16.0); Lymphocytes # (A) 0.6 k/uL (1.0-4.8); Lymphocytes % (A) 4 %; MCH 29.2 pg (25.0-35.0); MCHC 32.4 g/dL (31.0-37.0); MCV 90.1 fL (80.0-100.0); Mean Platelet Volume 7.4; Monocytes # (A) 0.3 k/uL (0-1.0); Monocytes % (A) 2 %; Neutrophils # (A) 11.5 k/uL (1.3-7.7); Neutrophils % (A) 93 %; Platelet Count 444 k/uL (150-450); RBC 4.72 m/uL (3.80-5.40); RDW 15.2 % (11.5-15.5); WBC 12.4 k/uL (3.8-10.6)
[2022-06-20 03:25] LABS: Calcium 9.9 mg/dL (8.4-10.2); Potassium 5.2 mmol/L (3.5-5.1); Total Bilirubin 0.5 mg/dL (0.2-1.3); Total Protein 7.8 g/dL (6.3-8.2)
[2022-06-20] MEDS ORDERED: SODIUM CHLORIDE 0.9% 500 ML 500 ML IV ONE (03:32)
[2022-06-20] MEDS ORDERED: ONDANSETRON 4 MG/2 ML VIAL IVP PRN ×2 (04:02→19:10)
[2022-06-20] MEDS ORDERED: NALOXONE 0.4 MG/ML 1 ML VIAL IV PRN (04:02)
[2022-06-20] MEDS ORDERED: INSULIN ASPART (NovoLOG) 100 UNIT/ML VIAL SQ ONE (04:09)
[2022-06-20] MEDS ORDERED: DEXTROSE 50% SYRINGE 50 ML IVP PRN ×2 (04:10)
[2022-06-20] MEDS ORDERED: ALBUTEROL NEBULIZED 2.5 MG/3 ML INHALATION PRN (04:12)
[2022-06-20] MEDS ORDERED: ALBUTEROL HFA INHALER INHALATION PRN (04:12)
--- NOTE | 2022-06-20 04:16 | CT ---
EXAMINATION TYPE: CT abdomen pelvis wo con DATE OF EXAM: 06/20/2022 COMPARISON: 06/28/2020 HISTORY: abdominal pain, vomiting, r/o SBO CT DLP: 1056 mGycm Automated exposure control for dose reduction was used. Images obtained from the diaphragm to the floor the pelvis with no contrast. Lung bases show pleural thickening and atelectasis. There is small right pleural effusion. Heart is s lightly enlarged. Liver is intact. There are clips from cholecystectomy. The spleen is intact. There is distended fluid-filled stomach. No pancreatic mass. The bile duct are not dilated. There is no adrenal mass. Kidneys have normal size and contour. No hydronephrosis. Bladder distends s moothly. Ureters are not dilated. No inguinal hernia. No free fluid in the pelvis. No sign of a pelvi c mass. There are multiple dilated fluid-filled loops of small bowel throughout the abdomen. Small bowel dila boyd up to the terminal ileum. The large bowel is not dilated. No obstructing lesion seen. Small bowel dilated up to 3.3 cm. No free air. No ascites. The lumbar vertebra have normal alignment. No compression fracture. No evidence of focal bone destruc tion. Bony pelvis is intact. IMPRESSION: Dilated small bowel is a change compared to old exam. No transition point seen. This is extending to the terminal ileum without evidence of an obstructing lesion. This is likely related to generalized i leus. There is some pleural thickening and atelectasis at the lung bases without change.
[2022-06-20 04:30] LABS: Glucose,Whole Blood 357 mg/dL (70-110)
[2022-06-20] MEDS: INSULIN ASPART (NovoLOG) 100 UNIT/ML VIAL SQ SCH ×4 (04:33→22:00)
[2022-06-20] MEDS ORDERED: HYDROmorphone 1 MG/ML 1 ML SYRINGE IVP STA (04:38)
[2022-06-20] MEDS: SODIUM CHLORIDE 0.9% 1,000 ML IV SCH ×3 (05:02→17:56)
[2022-06-20 05:31] LABS: VBG PH 7.33 (7.31-7.41)
[2022-06-20 05:32] LABS: Appearance,Urine Clear (Clear); Bilirubin,Urine Negative (Negative); Blood,Urine Negative (Negative); Color,Urine Light Yellow; Glucose,Urine (UA) 4+ (Negative); Ketones,Urine Negative (Negative); Leukocyte Esterase,Urine Negative (Negative); Nitrite,Urine Negative (Negative); Protein,Urine Negative (Negative); Specific Gravity,Urine 1.025 (1.001-1.035); Urobilinogen,Urine <2.0 mg/dL (<2.0)
[2022-06-20] MEDS ORDERED: hydrALAZINE HCL 20 MG/ML 1 ML VIAL IVP PRN (07:34)
[2022-06-20] MEDS: ALBUTEROL HFA INHALER INHALATION PRN (08:42)
[2022-06-20] MEDS: SYMBICORT 160-4.5 MCG INHALER INHALATION SCH ×2 (08:42→19:04)
[2022-06-20] MEDS: PANTOPRAZOLE 40 MG/10 ML VIAL IV SCH (08:46)
[2022-06-20] MEDS ORDERED: HEPARIN SODIUM,PORCINE/PF 5,000 UNIT/0.5 ML SYRINGE SQ SCH (09:00)
--- NOTE | 2022-06-20 09:42 | P.HPIM ---
History of Present Illness This is a pleasant 70 years old female with past medical history of hypertension, hyperlipidemia, diabetes mellitus, hypothyroidism, asthma, atrial fibrillation not on anticoagulation, osteoarthritis, sleep apnea, ovarian cancer status post surgery and chemoradiotherapy in 2000, left vocal cord paralysis, diabetic neuropathy, anxiety and depression Patient presents because of 5 days of abdominal pain, periumbilical, nonradiating about 10/10 in severity, nonspecific. Associated with vomiting about 10 times. Last bowel movement was yesterday morning but she is currently passing gases. She denies chest pain but she reports some little dyspnea. She is coughing with some yellow phlegm. Patient was recently diagnosed with Covid infection about one week ago when she tested herself at home. Her PCP is Dr. Dudley, also she is on liquids for her A. fib and last dose was last night. 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 She denies smoking or illicit drugs. Drinks alcohol occasionally Vitals are stable and patient is afebrile. showing mild leukocytosis at 12.4, rest of CBC is unremarkable. Creatinine 1.36, baseline is 1.0 Negative troponin. Lipase normal 75. Urine analysis is negative. Acetone is negative EKG showing normal sinus rhythm at [address]-T changes CT of the abdomen and pelvis without contrast: Dilated small bowel. This is ext ending to the terminal ileum without evidence of an obstructing lesion. This is likely related to generalized ileus, pleural thickening and atelectasis Emergency room she was received normal saline, Pepcid, Zofran as needed and Dilaudid. Review of Systems Review of systems CONSTITUTIONAL: No fever, no malaise, no fatigue. HEENT: No recent visual problems or hearing problems. Denied any sore throat. CARDIOVASCULAR: No orthopnea, PND, no palpitations, no syncope. PULMONARY: No chest wall tenderness, no hemoptysis. GASTROINTESTINAL: No diarrhea, . Normoactive bowel sounds. NEUROLOGICAL: No headaches, no weakness, no numbness. HEMATOLOGICAL: Denies any bleeding or petechiae. GENITOURINARY: Denies any burning micturition, frequency, or urgency. MUSCULOSKELETAL/RHEUMATOLOGICAL: Denies any joint pain, swelling, or any muscle pain. ENDOCRINE: Denies any polyuria or polydipsia. Past Medical History Past Medical History: Atrial Fibrillation, Asthma, Coronary Artery Disease (CAD), COPD, Diabetes Mellitus, GERD/Reflux, Hypertension, Osteoarthritis (OA), Pneumonia, Sleep Apnea/CPAP/BIPAP, Thyroid Disorder Additional Past Medical History / Comment(s): SOB, Hx precancerous colon polyps, ovarian cancer with surgery,chemo & radiation tx 2000., left vocal cord paralys is, neuropathy legs & feet, rosacea., chronic gastritis, uses cane for balance, emphysema, sleep apnea with c-pap., hx of fall on ice with surgery left ankle- now has non-healing wound, states surgery to remove hardware scheduled at [facility] on 08/21/20. History of Any Multi-Drug Resistant Organisms: None Reported Past Surgical History: Cholecystectomy, Heart Catheterization, Hernia Repair, Hysterectomy, Tonsillectomy, Tubal Ligation Additional Past Surgical History / Comment(s): hernia x2, port a cath inserted & removed.,heart cath 2018, May 2020 vocal cord surgery., left ankle surgery January 2019. Past Anesthesia/Blood Transfusion Reactions: Previous Problems w/ Anesthesia Additional Past Anesthesia/Blood Transfusion Reaction / Comment(s): states e levated bloodpressure after surgery. Past Psychological History: Anxiety, Depression Smoking Status: Former smoker Past Alcohol Use History: None Reported Past Drug Use History: None Reported - Past Family History Sister(s) Family Medical History: Cancer Additional Family Medical History / Comment(s): skin cancer Mother Family Medical History: Cancer Additional Family Medical History / Comment(s): small cell lung cancer Father Family Medical History: Cancer Additional Family Medical History / Comment(s): colon & skin cancer Medications and Allergies Home Medications Medication Instructions Recorded Confirmed Type RX: Albuterol Sulfate [Proair Hfa] 2 puff INHALATION RT-TID PRN 02/02/15 06/20/22 History RX: Fenofibrate Nanocrystallized 145 mg PO DAILY 02/02/15 06/20/22 History [Fenofibrate] RX: Fluticasone Propionate 1 spray EA NOSTRIL HS 02/02/15 06/20/22 History [Flonase Allergy Relief] RX: Levothyroxine Sodium [Levoxyl] 25 mcg PO QAM 02/02/15 06/20/22 History RX: Montelukast [Singulair] 10 mg PO QAM 02/02/15 06/20/22 History Gabapentin [Neurontin] 300 mg PO BID 01/13/17 06/20/22 History Bisoprolol Fumarate [Zebeta] 5 mg PO BID 05/25/20 06/20/22 History Famotidine [Pepcid] 20 mg PO BID 05/25/20 06/20/22 History buPROPion HCL [Wellbutrin XL] 300 mg PO DAILY 05/25/20 06/20/22 History metroNIDAZOLE 1% GEL [Metrogel 1%] 1 applic TOPICAL BID 05/25/20 06/20/22 History Empagliflozin [Jardiance] 25 mg PO DAILY 05/24/22 06/20/22 History Ezetimibe [Zetia] 10 mg PO DAILY 05/24/22 06/20/22 History NIFEdipine [NIFEdipine ER 60 mg PO DAILY 05/24/22 06/20/22 History (Osmotic)] Nitroglycerin 0.2MG/Hr Patch 1 patch TRANSDERM DAILY 05/24/22 06/20/22 History [Nitro-Dur 0.2MG/Hr Patch] Pantoprazole [Protonix] 40 mg PO DAILY 05/24/22 06/20/22 History Potassium Chloride [Klor-Con 8] 8 meq PO DAILY 05/24/22 06/20/22 History RX: Baclofen 10 mg PO TID 05/24/22 06/20/22 History RX: Folic Acid 400 mcg PO DAILY 05/24/22 06/20/22 History Sacubitril/Valsartan [Entresto 24 1 tab PO BID 05/24/22 06/20/22 History mg-26 mg Tablet] Torsemide [Demadex] 5 mg PO DAILY 05/24/22 06/20/22 History Umeclidinium [place] [Incruse 2 puff INHALATION RT-HS 05/24/22 06/20/22 History Ellipta] Vilazodone HCl [Viibryd] 10 mg PO DAILY 05/24/22 06/20/22 History Albuterol Nebulized [Ventolin 2.5 mg INHALATION RT-Q4H PRN 06/20/22 06/20/22 History Nebulized] Apixaban [Eliquis] 5 mg PO BID 06/20/22 06/20/22 History Benzonatate [Tessalon Perle] 200 mg PO TID PRN 06/20/22 06/20/22 History Budesonide-Formot 160-4.5 Mcg 2 puff INHALATION RT-HS 06/20/22 06/20/22 History [Symbicort 160-4.5 Mcg Inhaler] Cholecalciferol [Vitamin D3 (125 125 mcg PO DAILY 06/20/22 06/20/22 History Mcg = 5000 Iu)] Evolocumab [Repatha Sureclick] 140 mg SQ Q14D 06/20/22 06/20/22 History Glimepiride [Amaryl] 2 mg PO AC-BRKFST 06/20/22 06/20/22 History LORazepam [Ativan] 0.25 mg PO HS PRN 06/20/22 06/20/22 History Nirmatrelvir/Ritonavir [Paxlovid 1 tab PO BID 06/20/22 06/20/22 History 150-100 mg Pack (Eua)] dexAMETHasone [Decadron] 4 mg PO DAILY 06/20/22 06/20/22 History Allergies Allergy/AdvReac Type Severity Reaction Status Date / Time amlodipine [From Norvasc] Allergy SOB,lightheaded,muscle Verified 06/20/22 01:34 cramps brompheniramine Allergy VISION Verified 06/20/22 01:34 [From [facility] Cold-Cough PROBLEM (PE)] buspirone [From BuSpar] Allergy lightheaded Verified 06/20/22 01:34 dextromethorphan Allergy VISION Verified 06/20/22 01:34 [From [facility] Cold-Cough PROBLEM (PE)] diltiazem Allergy heart Verified 06/20/22 01:34 pounding isosorbide Allergy lightheaded Verified 06/20/22 01:34 metoprolol Allergy severe Verified 06/20/22 01:34 wheezing morphine Allergy Hallucinati Verified 06/20/22 01:34 ons neomycin Allergy redness,itc Verified 06/20/22 01:34 carmela Penicillins Allergy Rash/Hives Verified 06/20/22 01:34 phenylephrine Allergy VISION Verified 06/20/22 01:34 [From [facility] Cold-Cough PROBLEM (PE)] pseudoephedrine Allergy tunnel Verified 06/20/22 01:34 [From Actifed] vision triprolidine [From Actifed] Allergy tunnel Verified 06/20/22 01:34 vision ranolazine [From Ranexa] AdvReac constipatio Verified 06/20/22 01:34 n tetracycline AdvReac SEVERE Verified 06/20/22 01:34 CONSTIPATION verapamil AdvReac constipatio Verified 06/20/22 01:34 n Physical Exam Vitals: Vital Signs Temp Pulse Resp BP Pulse Ox 06/20/22 06:00 78 16 130/71 92 L 06/20/22 01:28 98.3 F 58 L 22 129/76 97 Intake and Output 06/19/22 06/20/22 06/20/22 22:59 06:59 14:59 Other: Weight 81.647 kg GENERAL: The patient is alert and oriented x3, not in any acute distress. Well developed, well nourished. HEENT: Pupils are round and equally reacting to light. EOMI. No scleral icterus. No conjunctival pallor. Normocephalic, atraumatic. No pharyngeal erythema. No thyromegaly. CARDIOVASCULAR: S1 and S2 present. No murmurs, rubs, or gallops. -PULMONARY: Chest is clear to auscultation, no wheezing . Bilateral scattered crackles. -ABDOMEN: Soft, abdominal tenderness with no rebound tenderness, nondistended, normoactive bowel sounds. No palpable organomegaly. MUSCULOSKELETAL: No joint swelling or deformity. EXTREMITIES: No cyanosis, clubbing, or pedal edema. NEUROLOGICAL: Gross neurological examination did not reveal any focal deficits. SKIN: No rashes. no petechiae. Results CBC & Chem 7: 06/20/22 02:42 06/20/22 02:42 Labs: Abnormal Lab Results - Last 24 Hours (Table) 06/20/22 06/20/22 06/20/22 Range/Units 02:42 02:42 04:28 WBC 12.4 H (3.8-10.6) k/uL Neutrophils # 11.5 H (1.3-7.7) k/uL Lymphocytes # 0.6 L (1.0-4.8) k/uL VBG HCO3 (24-28) mmol/L Potassium 5.2 H (3.5-5.1) mmol/L Carbon Dioxide 19 L (22-30) mmol/L BUN 46 H (7-17) mg/dL Creatinine 1.36 H (0.52-1.04) mg/dL Glucose 474 H (74-99) mg/dL POC Glucose (mg/dL) 357 H (70-110) mg/dL Urine Glucose (UA) (Negative) 06/20/22 06/20/22 Range/Units 04:32 04:52 WBC (3.8-10.6) k/uL Neutrophils # (1.3-7.7) k/uL Lymphocytes # (1.0-4.8) k/uL VBG HCO3 20 L (24-28) mmol/L Potassium (3.5-5.1) mmol/L Carbon Dioxide (22-30) mmol/L BUN (7-17) mg/dL Creatinine (0.52-1.04) mg/dL Glucose (74-99) mg/dL POC Glucose (mg/dL) (70-110) mg/dL Urine Glucose (UA) 4+ H (Negative) Assessment and Plan Assessment: Acute small bowel obstruction versus generalized ileus Recent Covid infection with no pneumonia Mild acute kidney injury Hypertension Hyperlipidemia Diabetes mellitus, with hyperglycemia on admission Hypothyroidism Diabetic neuropathy History of asthma Chronic atrial fibrillation not on anticoagulation History of osteoarthritis History of sleep apnea History of , ovarian cancer status post surgery and chemoradiotherapy in 2000 History of vocal cord paralysis status post surgery history of depression and anxiety Plan: This is a pleasant 72 years old female who presents with small bowel obstruction Continue with bowel rest IV fluid Pain medication Surgery consult Check hemoglobin A1c Check chest x-ray Labs and medication were reviewed.. Continue same treatment. Continue with symptomatic treatment. Resume home medication. Monitor lytes and vitals. DVT and GI prophylaxis. Further recommendations as per clinical course of the patient DVT prophylaxis: Subcutaneous Lovenox 40 mg twice daily while Eliquis on hold, while nothing by mouth GI Prophylaxis: Ppi PT/OT: Pending Prognosis is guarded
--- NOTE | 2022-06-20 10:19 | XR ---
EXAMINATION TYPE: XR chest 2V DATE OF EXAM: 06/20/2022 COMPARISON: 06/16/2022 and 06/20/2022 HISTORY: 72-year-old female with cough TECHNIQUE: PA and lateral views FINDINGS: Heart borderline in size. Aorta within normal limits. Increased interstitial opacity bilaterally. No inna consolidation or sizable pleural effusion. IMPRESSION: 1. Borderline heart size. 2. Increased interstitial changes bilaterally. Correlate for bronchitis or atypical pneumonia.
[2022-06-20 10:29] LABS: Glucose,Whole Blood 211 mg/dL (70-110)
[2022-06-20] MEDS: ENOXAPARIN 40 MG/0.4 ML SYRINGE SQ SCH ×2 (10:51→22:58)
[2022-06-20 11:33] LABS: Glucose,Whole Blood 208 mg/dL (70-110)
[2022-06-20 12:37] LABS: Glucose,Whole Blood 209 mg/dL (70-110)
[2022-06-20] MEDS ORDERED: HYDROmorphone 1 MG/ML 1 ML SYRINGE IM PRN (16:04)
[2022-06-20] MEDS ORDERED: METOCLOPRAMIDE 5 MG/ML 2 ML VIAL IVP PRN (16:17)
--- NOTE | 2022-06-20 16:24 | P.GSCN ---
History of Present Illness Consult date: 06/20/22 History of present illness: CHIEF COMPLAINT: Abdominal pain HISTORY OF PRESENT ILLNESS: This is a 72-year-old female who presented to the hospital with complaints of epigastric abdominal pain with nausea and vomiting. Patient is COVID-19 positive and she felt that the medication that she was taking for her COVID-19 was causing an upset stomach. Patient reports having a bowel movement yesterday and is having flatus. Patient did have one episode of vomiting in the emergency room. Patient's computed tomography scan had showed evidence of an ileus. Surgical consult was placed in regards to ileus. Patient's past surgical history includes cholecystectomy, hernia repair, hysterectomy and tubal ligation. Patient seen and examined with Dr. krishna PAST MEDICAL HISTORY: History of ovarian cancer status post hysterectomy and chemo radiation in 2000 PAST SURGICAL HISTORY: See list. MEDICATIONS: See list. ALLERGIES: See list. SOCIAL HISTORY: No illicit drug use. REVIEW OF SYSTEMS: CONSTITUTIONAL: Denies fever or chills. HEENT: Denies blurred vision, vision changes, or eye pain. Denies hemoptysis CARDIOVASCULAR: Denies chest pain or pressure. RESPIRATORY: No shortness of breath. GASTROINTESTINAL: See HPI for pertinent findings HEMATOLOGIC: Denies bleeding disorders. GENITOURINARY: Denies any blood in urine or increased urinary frequency. SKIN: Denies pruitis. Denies rash. PHYSICAL EXAM: VITAL SIGNS: Reviewed GENERAL: Well-developed in no acute distress. HEENT: No sclera icterus. Extraocular movements grossly intact. Moist buccal mucosa. Head is atraumatic, normocephalic. No nasal drainage. ABDOMEN: Soft. Nondistended. NEUROLOGIC: Alert and oriented. Cranial nerves II through XII grossly intact. LABORATORY DATA: WBC is 12.4 Hgb 13.8 platelets 444 Sodium 137 potassium 5.2 creatinine 1.36 Glucose 474 COVID-19 detected IMAGING: abdominal x-ray there are dilated bowel loops that could be a mechanical small bowel structure. No sign of free air. No sign of acute lung disease. computed tomography scan abdomen and pelvis dilated small bowel is a change compared to old exam. No transition point seen. This is extending to this terminal ileum without evidence of an obstructing lesion. This is likely related to generalized ileus. There is some pleural thickening and atelectasis at the lung bases without change. ASSESSMENT: 1. Abdominal ileus 2. Dehydration and acute kidney injury 3. COVID-19 positive 4. Diabetes mellitus with hyperglycemia 5. Chronic atrial fibrillation on Eliquis at home PLAN: -Start clear liquid diet -Continue Reglan -Continue IV fluids -Continue to monitor -continue supportive care Thank you for this consultation Physician Managed Security Sales Consultant note has been reviewed by physician. Signing provider agrees with the documented findings, assessment, and plan of care. Past Medical History Past Medical History: Atrial Fibrillation, Asthma, Coronary Artery Disease (CAD), Cancer, Heart Failure, COPD, CVA/TIA, Diabetes Mellitus, GERD/Reflux, Hyp erlipidemia, Hypertension, Osteoarthritis (OA), Pneumonia, Skin Disorder, Sleep Apnea/CPAP/BIPAP, Thyroid Disorder Additional Past Medical History / Comment(s): Covid + 06/16/22, NIDDM type II, neuropathy bilateral legs/feet/hands, TIA, 2000 ovarian cancer with surgery/chemo/radiation, possible previous TIA, bronchitis, edema bilateral lower legs with L leg worse, pt believes she has had heart failure in the past, bronchitis, chronic gastritis, benign colon polyps, diverticular disease, L vocal cord paralysis/hoarseness, migraines in past, sinus problems, UTI, anemia in past, hypothyroid, rosacea History of Any Multi-Drug Resistant Organisms: None Reported Past Surgical History: Appendectomy, Cholecystectomy, Heart Catheterization, Hernia Repair, Hysterectomy, Orthopedic Surgery, Tonsillectomy, Tubal Ligation Additional Past Surgical History / Comment(s): Total hysterectomy, umbilical hernia repairs, L ankle orif/removal of hardware, port placed then removed, vocal cord surgery, sinus surgery, colonoscopy/polyp snared. Past Anesthesia/Blood Transfusion Reactions: Previous Problems w/ Anesthesia Additional Past Anesthesia/Blood Transfusion Reaction / Comm: states elevated bloodpressure after surgery. Smoking Status: Former smoker - Past Family History Sister(s) Family Medical History: Cancer Additional Family Medical History / Comment(s): skin cancer Mother Family Medical History: Cancer Additional Family Medical History / Comment(s): small cell lung cancer Father Family Medical History: Cancer Additional Family Medical History / Comment(s): colon & skin cancer Medications and Allergies Home Medications Medication Instructions Recorded Confirmed Type Albuterol Sulfate [Proair Hfa] 2 puff INHALATION RT-TID PRN 02/02/15 06/20/22 History Fenofibrate Nanocrystallized 145 mg PO DAILY 02/02/15 06/20/22 History [Fenofibrate] Fluticasone Propionate [Flonase 1 spray EA NOSTRIL HS 02/02/15 06/20/22 History Allergy Relief] Levothyroxine Sodium [Levoxyl] 25 mcg PO QAM 02/02/15 06/20/22 History Montelukast [Singulair] 10 mg PO QAM 02/02/15 06/20/22 History Gabapentin [Neurontin] 300 mg PO BID 01/13/17 06/20/22 History Bisoprolol Fumarate [Zebeta] 5 mg PO BID 05/25/20 06/20/22 History Famotidine [Pepcid] 20 mg PO BID 05/25/20 06/20/22 History buPROPion HCL [Wellbutrin XL] 300 mg PO DAILY 05/25/20 06/20/22 History metroNIDAZOLE 1% GEL [Metrogel 1%] 1 applic TOPICAL BID 05/25/20 06/20/22 History Baclofen 10 mg PO TID 05/24/22 06/20/22 History Empagliflozin [Jardiance] 25 mg PO DAILY 05/24/22 06/20/22 History Ezetimibe [Zetia] 10 mg PO DAILY 05/24/22 06/20/22 History Folic Acid 400 mcg PO DAILY 05/24/22 06/20/22 History NIFEdipine [NIFEdipine ER 60 mg PO DAILY 05/24/22 06/20/22 History (Osmotic)] Nitroglycerin 0.2MG/Hr Patch 1 patch TRANSDERM DAILY 05/24/22 06/20/22 History [Nitro-Dur 0.2MG/Hr Patch] Pantoprazole [Protonix] 40 mg PO DAILY 05/24/22 06/20/22 History Potassium Chloride [Klor-Con 8] 8 meq PO DAILY 05/24/22 06/20/22 History Sacubitril/Valsartan [Entresto 24 1 tab PO BID 05/24/22 06/20/22 History mg-26 mg Tablet] Torsemide [Demadex] 5 mg PO DAILY 05/24/22 06/20/22 History Umeclidinium [place] [Incruse 2 puff INHALATION RT-HS 05/24/22 06/20/22 History Ellipta] Vilazodone HCl [Viibryd] 10 mg PO DAILY 05/24/22 06/20/22 History Albuterol Nebulized [Ventolin 2.5 mg INHALATION RT-Q4H PRN 06/20/22 06/20/22 History Nebulized] Apixaban [Eliquis] 5 mg PO BID 06/20/22 06/20/22 History Benzonatate [Tessalon Perle] 200 mg PO TID PRN 06/20/22 06/20/22 History Budesonide-Formot 160-4.5 Mcg 2 puff INHALATION RT-HS 06/20/22 06/20/22 History [Symbicort 160-4.5 Mcg Inhaler] Cholecalciferol [Vitamin D3 (125 125 mcg PO DAILY 06/20/22 06/20/22 History Mcg = 5000 Iu)] Evolocumab [Repatha Sureclick] 140 mg SQ Q14D 06/20/22 06/20/22 History Glimepiride [Amaryl] 2 mg PO AC-BRKFST 06/20/22 06/20/22 History LORazepam [Ativan] 0.25 mg PO HS PRN 06/20/22 06/20/22 History Nirmatrelvir/Ritonavir [Paxlovid 1 tab PO BID 06/20/22 06/20/22 History 150-100 mg Pack (Eua)] dexAMETHasone [Decadron] 4 mg PO DAILY 06/20/22 06/20/22 History Allergies Allergy/AdvReac Type Severity Reaction Status Date / Time amlodipine [From Norvasc] Allergy SOB,lightheaded,muscle Verified 06/20/22 01:34 cramps brompheniramine Allergy VISION Verified 06/20/22 01:34 [From Dimeta DM Cold-Cough PROBLEM (PE)] buspirone [From BuSpar] Allergy lightheaded Verified 06/20/22 01:34 dextromethorphan Allergy VISION Verified 06/20/22 01:34 [From Dimeta DM Cold-Cough PROBLEM (PE)] diltiazem Allergy heart Verified 06/20/22 01:34 pounding isosorbide Allergy lightheaded Verified 06/20/22 01:34 metoprolol Allergy severe Verified 06/20/22 01:34 wheezing morphine Allergy Hallucinati Verified 06/20/22 01:34 ons neomycin Allergy redness,itc Verified 06/20/22 01:34 carmela Penicillins Allergy Rash/Hives Verified 06/20/22 01:34 phenylephrine Allergy VISION Verified 06/20/22 01:34 [From Dimetapp DM Cold-Cough PROBLEM (PE)] pseudoephedrine Allergy tunnel Verified 06/20/22 01:34 [From Actifed] vision triprolidine [From Actifed] Allergy tunnel Verified 06/20/22 01:34 vision ranolazine [From Ranexa] AdvReac constipatio Verified 06/20/22 01:34 n tetracycline AdvReac SEVERE Verified 06/20/22 01:34 CONSTIPATION verapamil AdvReac constipatio Verified 06/20/22 01:34 n Surgical - Exam Vital Signs Temp Pulse Resp BP Pulse Ox 98.3 F 58 L 22 129/76 97 06/20/22 01:28 06/20/22 01:28 06/20/22 01:28 06/20/22 01:28 06/20/22 01:28 Results - Labs 06/20/22 02:42 06/20/22 02:42 Abnormal Lab Results - Last 24 Hours (Table) 06/20/22 06/20/22 06/20/22 Range/Units 02:42 02:42 04:28 WBC 12.4 H (3.8-10.6) k/uL Neutrophils # 11.5 H (1.3-7.7) k/uL Lymphocytes # 0.6 L (1.0-4.8) k/uL VBG HCO3 (24-28) mmol/L Potassium 5.2 H (3.5-5.1) mmol/L Carbon Dioxide 19 L (22-30) mmol/L BUN 46 H (7-17) mg/dL Creatinine 1.36 H (0.52-1.04) mg/dL Glucose 474 H (74-99) mg/dL POC Glucose (mg/dL) 357 H (70-110) mg/dL Hemoglobin A1c (0.0-6.0) % Urine Glucose (UA) (Negative) Coronavirus (PCR) (Not Detectd) 06/20/22 06/20/22 06/20/22 Range/Units 04:32 04:32 04:52 WBC (3.8-10.6) k/uL Neutrophils # (1.3-7.7) k/uL Lymphocytes # (1.0-4.8) k/uL VBG HCO3 20 L (24-28) mmol/L Potassium (3.5-5.1) mmol/L Carbon Dioxide (22-30) mmol/L BUN (7-17) mg/dL Creatinine (0.52-1.04) mg/dL Glucose (74-99) mg/dL POC Glucose (mg/dL) (70-110) mg/dL Hemoglobin A1c 7.6 H (0.0-6.0) % Urine Glucose (UA) 4+ H (Negative) Coronavirus (PCR) (Not Detectd) 06/20/22 06/20/22 06/20/22 Range/Units 08:56 10:28 11:31 WBC (3.8-10.6) k/uL Neutrophils # (1.3-7.7) k/uL Lymphocytes # (1.0-4.8) k/uL VBG HCO3 (24-28) mmol/L Potassium (3.5-5.1) mmol/L Carbon Dioxide (22-30) mmol/L BUN (7-17) mg/dL Creatinine (0.52-1.04) mg/dL Glucose (74-99) mg/dL POC Glucose (mg/dL) 211 H 208 H (70-110) mg/dL Hemoglobin A1c (0.0-6.0) % Urine Glucose (UA) (Negative) Coronavirus (PCR) Detected A (Not Detectd) 06/20/22 Range/Units 12:36 WBC (3.8-10.6) k/uL Neutrophils # (1.3-7.7) k/uL Lymphocytes # (1.0-4.8) k/uL VBG HCO3 (24-28) mmol/L Potassium (3.5-5.1) mmol/L Carbon Dioxide (22-30) mmol/L BUN (7-17) mg/dL Creatinine (0.52-1.04) mg/dL Glucose (74-99) mg/dL POC Glucose (mg/dL) 209 H (70-110) mg/dL Hemoglobin A1c (0.0-6.0) % Urine Glucose (UA) (Negative) Coronavirus (PCR) (Not Detectd) Diabetes panel 06/20/22 06/20/22 Range/Units 02:42 04:32 Sodium 137 (137-145) mmol/L Potassium 5.2 H (3.5-5.1) mmol/L Chloride 98 (98-107) mmol/L Carbon Dioxide 19 L (22-30) mmol/L BUN 46 H (7-17) mg/dL Creatinine 1.36 H (0.52-1.04) mg/dL Glucose 474 H (74-99) mg/dL Hemoglobin A1c 7.6 H (0.0-6.0) % Calcium 9.9 (8.4-10.2) mg/dL AST 22 (14-36) U/L ALT 18 (4-34) U/L Alkaline Phosphatase 67 (38-126) U/L Total Protein 7.8 (6.3-8.2) g/dL Albumin 5.0 (3.5-5.0) g/dL Calcium panel 06/20/22 Range/Units 02:42 Calcium 9.9 (8.4-10.2) mg/dL Albumin 5.0 (3.5-5.0) g/dL Pituitary panel 06/20/22 Range/Units 02:42 Sodium 137 (137-145) mmol/L Potassium 5.2 H (3.5-5.1) mmol/L Chloride 98 (98-107) mmol/L Carbon Dioxide 19 L (22-30) mmol/L BUN 46 H (7-17) mg/dL Creatinine 1.36 H (0.52-1.04) mg/dL Glucose 474 H (74-99) mg/dL Calcium 9.9 (8.4-10.2) mg/dL Adrenal panel 06/20/22 Range/Units 02:42 Sodium 137 (137-145) mmol/L Potassium 5.2 H (3.5-5.1) mmol/L Chloride 98 (98-107) mmol/L Carbon Dioxide 19 L (22-30) mmol/L BUN 46 H (7-17) mg/dL Creatinine 1.36 H (0.52-1.04) mg/dL Glucose 474 H (74-99) mg/dL Calcium 9.9 (8.4-10.2) mg/dL Total Bilirubin 0.5 (0.2-1.3) mg/dL AST 22 (14-36) U/L ALT 18 (4-34) U/L Alkaline Phosphatase 67 (38-126) U/L Total Protein 7.8 (6.3-8.2) g/dL Albumin 5.0 (3.5-5.0) g/dL
[2022-06-20 16:32] LABS: C Reactive Protein 1.2 mg/dL (<1.0)
[2022-06-20 17:48] LABS: Glucose,Whole Blood 243 mg/dL (70-110)
[2022-06-20] MEDS: DEXAMETHASONE SOD PHOSPHATE 10 MG/ML 1 ML VIAL IVP SCH (17:50)
[2022-06-20] MEDS ORDERED: METOCLOPRAMIDE 5 MG/ML 2 ML VIAL IVP SCH (18:00)
[2022-06-20 20:37] LABS: Glucose,Whole Blood 217 mg/dL (70-110)
[2022-06-20] MEDS: HYDROmorphone 0.5 MG/0.5 ML SYRINGE IVP PRN (22:58)
[2022-06-21] MEDS: FLUTICASONE 50MCG/SPRAY NASAL 16GM EA NOSTRIL SCH ×2 (02:04→22:36)
[2022-06-21] MEDS: HYDROmorphone 0.5 MG/0.5 ML SYRINGE IVP PRN ×2 (03:57→22:35)
[2022-06-21 06:02] LABS: Glucose,Whole Blood 157 mg/dL (70-110)
[2022-06-21] MEDS: INSULIN ASPART (NovoLOG) 100 UNIT/ML VIAL SQ SCH ×4 (07:28→22:44)
[2022-06-21] MEDS: SODIUM CHLORIDE 0.9% 1,000 ML IV SCH ×3 (08:10→17:50)
[2022-06-21] MEDS: ALBUTEROL HFA INHALER INHALATION PRN ×2 (08:35→19:19)
[2022-06-21] MEDS: SYMBICORT 160-4.5 MCG INHALER INHALATION SCH ×2 (08:36→19:19)
[2022-06-21 08:52] LABS: Basophils # (A) 0.01 X 10*3/uL (0.00-0.10); Basophils % (A) 0.2 %; Eosinophils # (A) 0 X 10*3/uL (0.04-0.35); Eosinophils % (A) 0 %; Immature Grans, Automated 0.2 %; Lymphocytes # (A) 0.31 X 10*3/uL (0.90-5.00); MCH 28.6 pg (27.0-32.0); MCHC 31.6 g/dL (32.0-37.0); MCV 90.7 fL (80.0-97.0); Mean Platelet Volume 9.8 fL (9.5-12.2); Monocytes # (A) 0.45 X 10*3/uL (0.20-1.00); Monocytes % (A) 7.3 %; NRBC Per 100 WBC 0 /100 WBCS (0.0-0.0); Neutrophils # (A) 5.36 X 10*3/uL (1.80-7.70); Neutrophils % (A) 87.3 %; Platelet Count 306 X 10*3/uL (140-440); RBC 4.19 X 10*6/uL (4.10-5.20); RDW 15.7 % (11.5-14.5); WBC 6.14 X 10*3/uL (4.50-10.00)
[2022-06-21 09:08] LABS: Albumin 3.8 g/dL (3.8-4.9); Albumin/Globulin Ratio 1.9 (1.60-3.17); Anion Gap 12.6 mmol/L (10.00-18.00); Blood Urea Nitrogen 45.9 mg/dL (9.0-27.0); Calcium 8.6 mg/dL (8.7-10.3); Carbon Dioxide 22.4 mmol/L (20.0-27.5); Magnesium 2.6 mg/dL (1.5-2.4); Non-African American GFR(CKD) 63.9 (60.0-200.0); Potassium 4.1 mmol/L (3.5-5.5); Total Bilirubin 0.2 mg/dL (0.30-1.20); Total Protein 5.8 g/dL (6.2-8.2)
[2022-06-21] MEDS: ENOXAPARIN 40 MG/0.4 ML SYRINGE SQ SCH (10:19)
[2022-06-21] MEDS: ZINC SULFATE 220 MG CAP PO SCH (10:19)
[2022-06-21] MEDS: ASCORBIC ACID 500 MG TAB PO SCH (10:20)
[2022-06-21] MEDS: CHOLECALCIFEROL 25 MCG (1000 IU) TABLET PO SCH (10:20)
[2022-06-21] MEDS: DEXAMETHASONE SOD PHOSPHATE 10 MG/ML 1 ML VIAL IVP SCH (10:37)
[2022-06-21] MEDS: PANTOPRAZOLE 40 MG/10 ML VIAL IV SCH (10:37)
[2022-06-21 11:26] LABS: Glucose,Whole Blood 202 mg/dL (70-110)
--- NOTE | 2022-06-21 14:06 | P.PN ---
Subjective Progress Note Date: 06/21/22 Principal diagnosis: Abdominal ileus Patient doing better today. Only having a bit of nausea. Tolerating clear liquids currently. She had a bowel movement that she states was large. No vomiting. She would like more to eat. White blood cell count is normal. Objective - Vital Signs Vital signs: Vital Signs Temp 98.9 F 06/21/22 09:56 Pulse 86 06/21/22 09:56 Resp 20 06/21/22 09:56 BP 117/73 06/21/22 09:56 Pulse Ox 96 06/21/22 09:56 FiO2 Intake & Output 06/20/22 06/21/22 06/21/22 18:59 06:59 18:59 Output Total 900 Balance -900 Weight 81.647 kg Output: Emesis 900 Other: Voiding Method Bedside Commode # Voids 0 - Exam Abdomen: Soft, no appreciable tenderness or distention at this time - Labs CBC & Chem 7: 06/21/22 05:45 06/21/22 05:45 Labs: Abnormal Lab Results - Last 24 Hours (Table) 06/20/22 06/20/22 06/20/22 Range/Units 04:32 04:32 17:47 MCHC (32.0-37.0) g/dL RDW (11.5-14.5) % Lymphocytes # (0.90-5.00) X 10*3/uL Eosinophils # (0.04-0.35) X 10*3/uL Sodium (135-145) mmol/L Chloride (96-109) mmol/L BUN (9.0-27.0) mg/dL BUN/Creatinine Ratio (12.00-20.00) Ratio Glucose (70-110) mg/dL POC Glucose (mg/dL) 243 H (70-110) mg/dL Calcium (8.7-10.3) mg/dL Magnesium (1.5-2.4) mg/dL Total Bilirubin (0.30-1.20) mg/dL C-Reactive Protein 1.2 H (<1.0) mg/dL Total Protein (6.2-8.2) g/dL Procalcitonin 0.10 H (0.02-0.09) ng/mL 06/20/22 06/21/22 06/21/22 Range/Units 20:36 05:45 05:45 MCHC 31.6 L (32.0-37.0) g/dL RDW 15.7 H (11.5-14.5) % Lymphocytes # 0.31 L (0.90-5.00) X 10*3/uL Eosinophils # 0 L (0.04-0.35) X 10*3/uL Sodium 148 H (135-145) mmol/L Chloride 113 H (96-109) mmol/L BUN 45.9 H (9.0-27.0) mg/dL BUN/Creatinine Ratio 51.00 H (12.00-20.00) Ratio Glucose 163 H (70-110) mg/dL POC Glucose (mg/dL) 217 H (70-110) mg/dL Calcium 8.6 L (8.7-10.3) mg/dL Magnesium 2.6 H (1.5-2.4) mg/dL Total Bilirubin 0.20 L (0.30-1.20) mg/dL C-Reactive Protein (<1.0) mg/dL Total Protein 5.8 L (6.2-8.2) g/dL Procalcitonin (0.02-0.09) ng/mL 06/21/22 06/21/22 Range/Units 06:00 11:25 MCHC (32.0-37.0) g/dL RDW (11.5-14.5) % Lymphocytes # (0.90-5.00) X 10*3/uL Eosinophils # (0.04-0.35) X 10*3/uL Sodium (135-145) mmol/L Chloride (96-109) mmol/L BUN (9.0-27.0) mg/dL BUN/Creatinine Ratio (12.00-20.00) Ratio Glucose (70-110) mg/dL POC Glucose (mg/dL) 157 H 202 H (70-110) mg/dL Calcium (8.7-10.3) mg/dL Magnesium (1.5-2.4) mg/dL Total Bilirubin (0.30-1.20) mg/dL C-Reactive Protein (<1.0) mg/dL Total Protein (6.2-8.2) g/dL Procalcitonin (0.02-0.09) ng/mL Assessment and Plan (1) Ileus Narrative/Plan: 72-year-old female doing better at this time. Ileus seems to be improved. Begin full liquid diet tomorrow morning. Continue increasing activity. Will follow. Current Visit: Yes Status: Acute Code(s): K56.7 - ILEUS, UNSPECIFIED [facility] Code(s): 064828163
--- NOTE | 2022-06-21 15:15 | P.CNPUL ---
History of Present Illness Consult date: 06/21/22 Chief complaint: COVID 19 infection History of present illness: A 70-year-old female patient who is currently in the hospital and the patient is currently infected with Cob[place] 19. Her symptoms started approximately a week ago and the patient was taken outpatient course of Paxlovid as recommended by her primary care physician. The patient has already been vaccinated with the patient has received 2 shots of Moderna and a booster. The patient following an infection started having gastrointestinal symptoms and the patient was having increased abdominal discomfort, periumbilical, nausea, emesis on multiple occasions and some limited diarrhea. For that reason, the patient came into the hospital for further evaluation. She was found to be hypoxic and she was also started on Decadron 6 mg every 24 hours. Currently the patient on oxygen and her pulse ox is 96%.CAT scan of the abdomen was done and the patient was found to have dilated small bowel without any transition point. There is extension to the terminal ileum without evidence of any obstruction. This was consistent with generalized ileus. There was also some atelectatic changes in the lung bases. No pneumonic infiltrates in the lung bases. Chest x-ray showed some inc reased interstitial markings this could be technique related. The patient has no cough or sputum production. No chest that is so wheezing at this point in time. Denies having any significant shortness of breath. The white cell count of 6.4 with a hemoglobin of 12 and a platelet count of 306. Sodium is 148, chloride is on September 22, and the BUN is at 45 with a creatinine of 0.9. Liver function tests are normal. Bilirubin is at 0.2. Blood sugar is slightly elevated at 157. Outpatient medications were resumed and the patient has no specific complaints for now she is receiving normal saline at the rate of 130s he is an hour. Review of Systems CONSTITUTIONAL: No fever, no malaise, no fatigue. HEENT: No recent visual problems or hearing problems. Denied any sore throat. CARDIOVASCULAR: No orthopnea, PND, no palpitations, no syncope. PULMONARY: No chest wall tenderness, no hemoptysis. No significant shortness of breath. No hypoxemia. GASTROINTESTINAL: No diarrhea, . Normoactive bowel sounds. The patient was having nausea and emesis and some vague abdominal pain which is currently subsided NEUROLOGICAL: No headaches, no weakness, no numbness. HEMATOLOGICAL: Denies any bleeding or petechiae. GENITOURINARY: Denies any burning micturition, frequency, or urgency. MUSCULOSKELETAL/RHEUMATOLOGICAL: Denies any joint pain, swelling, or any muscle pain. ENDOCRINE: Denies any polyuria or polydipsia. Past Medical History Past Medical History: Atrial Fibrillation, Asthma, Coronary Artery Disease (CAD), Cancer, Heart Failure, COPD, CVA/TIA, Diabetes Mellitus, GERD/Reflux, Hyperlipidemia, Hypertension, Osteoarthritis (OA), Pneumonia, Skin Disorder, Sleep Apnea/CPAP/BIPAP, Thyroid Disorder Additional Past Medical History / Comment(s): Covid + 06/16/22, NIDDM type II, neuropathy bilateral legs/feet/hands, TIA, 2000 ovarian cancer with surgery/chemo/radiation, possible previous TIA, bronchitis, edema bilateral lower legs with L leg worse, pt believes she has had heart failure in the past, bronchitis, chronic gastritis, benign colon polyps, diverticular disease, L vocal cord paralysis/hoarseness, migraines in past, sinus problems, UTI, anemia in past, hypothyroid, rosacea History of Any Multi-Drug Resistant Organisms: None Reported Past Surgical History: Appendectomy, Cholecystectomy, Heart Catheterization, Hernia Repair, Hysterectomy, Orthopedic Surgery, Tonsillectomy, Tubal Ligation Additional Past Surgical History / Comment(s): Total hysterectomy, umbilical hernia repairs, L ankle orif/removal of hardware, port placed then removed, vocal cord surgery, sinus surgery, colonoscopy/polyp snared. Past Anesthesia/Blood Transfusion Reactions: Previous Problems w/ Anesthesia Additional Past Anesthesia/Blood Transfusion Reaction / Comment(s): states elevated bloodpressure after surgery. Smoking Status: Former smoker - Past Family History Sister(s) Family Medical History: Cancer Additional Family Medical History / Comment(s): skin cancer Mother Family Medical History: Cancer Additional Family Medical History / Comment(s): small cell lung cancer Father Family Medical History: Cancer Additional Family Medical History / Comment(s): colon & skin cancer Medications and Allergies Home Medications Medication Instructions Recorded Confirmed Type Albuterol Sulfate [Proair Hfa] 2 puff INHALATION RT-TID PRN 02/02/15 06/20/22 History Fenofibrate Nanocrystallized 145 mg PO DAILY 02/02/15 06/20/22 History [Fenofibrate] Fluticasone Propionate [Flonase 1 spray EA NOSTRIL HS 02/02/15 06/20/22 History Allergy Relief] Levothyroxine Sodium [Levoxyl] 25 mcg PO QAM 02/02/15 06/20/22 History Montelukast [Singulair] 10 mg PO QAM 02/02/15 06/20/22 History Gabapentin [Neurontin] 300 mg PO BID 01/13/17 06/20/22 History Bisoprolol Fumarate [Zebeta] 5 mg PO BID 05/25/20 06/20/22 History Famotidine [Pepcid] 20 mg PO BID 05/25/20 06/20/22 History buPROPion HCL [Wellbutrin XL] 300 mg PO DAILY 05/25/20 06/20/22 History metroNIDAZOLE 1% GEL [Metrogel 1%] 1 applic TOPICAL BID 05/25/20 06/20/22 History Baclofen 10 mg PO TID 05/24/22 06/20/22 History Empagliflozin [Jardiance] 25 mg PO DAILY 05/24/22 06/20/22 History Ezetimibe [Zetia] 10 mg PO DAILY 05/24/22 06/20/22 History Folic Acid 400 mcg PO DAILY 05/24/22 06/20/22 History NIFEdipine [NIFEdipine ER 60 mg PO DAILY 05/24/22 06/20/22 History (Osmotic)] Nitroglycerin 0.2MG/Hr Patch 1 patch TRANSDERM DAILY 05/24/22 06/20/22 History [Nitro-Dur 0.2MG/Hr Patch] Pantoprazole [Protonix] 40 mg PO DAILY 05/24/22 06/20/22 History Potassium Chloride [Klor-Con 8] 8 meq PO DAILY 05/24/22 06/20/22 History Sacubitril/Valsartan [Entresto 24 1 tab PO BID 05/24/22 06/20/22 History mg-26 mg Tablet] Torsemide [Demadex] 5 mg PO DAILY 05/24/22 06/20/22 History Umeclidinium [place] [Incruse 2 puff INHALATION RT-HS 05/24/22 06/20/22 History Ellipta] Vilazodone HCl [Viibryd] 10 mg PO DAILY 05/24/22 06/20/22 History Albuterol Nebulized [Ventolin 2.5 mg INHALATION RT-Q4H PRN 06/20/22 06/20/22 History Nebulized] Apixaban [Eliquis] 5 mg PO BID 06/20/22 06/20/22 History Benzonatate [Tessalon Perle] 200 mg PO TID PRN 06/20/22 06/20/22 History Budesonide-Formot 160-4.5 Mcg 2 puff INHALATION RT-HS 06/20/22 06/20/22 History [Symbicort 160-4.5 Mcg Inhaler] Cholecalciferol [Vitamin D3 (125 125 mcg PO DAILY 06/20/22 06/20/22 History Mcg = 5000 Iu)] Evolocumab [Repatha Sureclick] 140 mg SQ Q14D 06/20/22 06/20/22 History Glimepiride [Amaryl] 2 mg PO [id number] 06/20/22 06/20/22 History LORazepam [Ativan] 0.25 mg PO HS PRN 06/20/22 06/20/22 History Nirmatrelvir/Ritonavir [Paxlovid 1 tab PO BID 06/20/22 06/20/22 History 150-100 mg Pack (Eua)] dexAMETHasone [Decadron] 4 mg PO DAILY 06/20/22 06/20/22 History Allergies Allergy/AdvReac Type Severity Reaction Status Date / Time amlodipine [From Norvasc] Allergy SOB,lightheaded,muscle Verified 06/20/22 01:34 cramps brompheniramine Allergy VISION Verified 06/20/22 01:34 [From Dimetapp DM Cold-Cough PROBLEM (PE)] buspirone [From BuSpar] Allergy lightheaded Verified 06/20/22 01:34 dextromethorphan Allergy VISION Verified 06/20/22 01:34 [From Dimetapp DM Cold-Cough PROBLEM (PE)] diltiazem Allergy heart Verified 06/20/22 01:34 pounding isosorbide Allergy lightheaded Verified 06/20/22 01:34 metoprolol Allergy severe Verified 06/20/22 01:34 wheezing morphine Allergy Hallucinati Verified 06/20/22 01:34 ons neomycin Allergy redness,itc Verified 06/20/22 01:34 carmela Penicillins Allergy Rash/Hives Verified 06/20/22 01:34 phenylephrine Allergy VISION Verified 06/20/22 01:34 [From Dimetapp DM Cold-Cough PROBLEM (PE)] pseudoephedrine Allergy tunnel Verified 06/20/22 01:34 [From Actifed] vision triprolidine [From Actifed] Allergy tunnel Verified 06/20/22 01:34 vision ranolazine [From Ranexa] AdvReac constipatio Verified 06/20/22 01:34 n tetracycline AdvReac SEVERE Verified 06/20/22 01:34 CONSTIPATION verapamil AdvReac constipatio Verified 06/20/22 01:34 n Physical Exam Vitals: Vital Signs Temp Pulse Pulse Resp BP Pulse Ox 06/21/22 14:00 98.4 F 115 H 18 117/63 95 06/21/22 09:56 98.9 F 86 20 117/73 96 06/21/22 05:34 98.5 F 79 20 110/71 95 06/21/22 02:00 98.4 F 80 20 90/50 91 L 06/20/22 20:00 79 20 06/20/22 15:51 98.0 F 74 24 94 L 06/20/22 15:13 67 18 94 L Intake and Output 06/21/22 06/21/22 06/21/22 06:59 14:59 22:59 Other: # Voids 0 Results - Laboratory Findings CBC and BMP: 06/21/22 05:45 06/21/22 05:45 Abnormal lab findings: Abnormal Labs 06/20/22 06/20/22 06/20/22 02:42 02:42 04:28 WBC 12.4 H MCHC RDW Neutrophils # 11.5 H Lymphocytes # 0.6 L Eosinophils # VBG HCO3 Sodium Potassium 5.2 H Chloride Carbon Dioxide 19 L BUN 46 H Creatinine 1.36 H BUN/Creatinine Ratio Glucose 474 H POC Glucose (mg/dL) 357 H Hemoglobin A1c Calcium Magnesium Total Bilirubin C-Reactive Protein Total Protein Procalcitonin Urine Glucose (UA) Coronavirus (PCR) 06/20/22 06/20/22 06/20/22 04:32 04:32 04:32 WBC MCHC RDW Neutrophils # Lymphocytes # Eosinophils # VBG HCO3 20 L Sodium Potassium Chloride Carbon Dioxide BUN Creatinine BUN/Creatinine Ratio Glucose POC Glucose (mg/dL) Hemoglobin A1c 7.6 H Calcium Magnesium Total Bilirubin C-Reactive Protein 1.2 H Total Protein Procalcitonin Urine Glucose (UA) Coronavirus (PCR) 06/20/22 06/20/22 06/20/22 04:32 04:52 08:56 WBC MCHC RDW Neutrophils # Lymphocytes # Eosinophils # VBG HCO3 Sodium Potassium Chloride Carbon Dioxide BUN Creatinine BUN/Creatinine Ratio Glucose POC Glucose (mg/dL) Hemoglobin A1c Calcium Magnesium Total Bilirubin C-Reactive Protein Total Protein Procalcitonin 0.10 H Urine Glucose (UA) 4+ H Coronavirus (PCR) Detected A 06/20/22 06/20/22 06/20/22 10:28 11:31 12:36 WBC MCHC RDW Neutrophils # Lymphocytes # Eosinophils # VBG HCO3 Sodium Potassium Chloride Carbon Dioxide BUN Creatinine BUN/Creatinine Ratio Glucose POC Glucose (mg/dL) 211 H 208 H 209 H Hemoglobin A1c Calcium Magnesium Total Bilirubin C-Reactive Protein Total Protein Procalcitonin Urine Glucose (UA) Coronavirus (PCR) 06/20/22 06/20/22 06/21/22 17:47 20:36 05:45 WBC MCHC 31.6 L RDW 15.7 H Neutrophils # Lymphocytes # 0.31 L Eosinophils # 0 L VBG HCO3 Sodium Potassium Chloride Carbon Dioxide BUN Creatinine BUN/Creatinine Ratio Glucose POC Glucose (mg/dL) 243 H 217 H Hemoglobin A1c Calcium Magnesium Total Bilirubin C-Reactive Protein Total Protein Procalcitonin Urine Glucose (UA) Coronavirus (PCR) 06/21/22 06/21/22 06/21/22 05:45 06:00 11:25 WBC MCHC RDW Neutrophils # Lymphocytes # Eosinophils # VBG HCO3 Sodium 148 H Potassium Chloride 113 H Carbon Dioxide BUN 45.9 H Creatinine BUN/Creatinine Ratio 51.00 H Glucose 163 H POC Glucose (mg/dL) 157 H 202 H Hemoglobin A1c Calcium 8.6 L Magnesium 2.6 H Total Bilirubin 0.20 L C-Reactive Protein Total Protein 5.8 L Procalcitonin Urine Glucose (UA) Coronavirus (PCR) Assessment and Plan Plan: COVID 19 infection and a patient with been vaccinated 3 Moderna and the patient was completing a course of Paxlovid on outpatient basis. The patient became symptomatic and the patient developed increased gastrointestinal symptoms and for that reason the patient was admitted to the hospital floor evaluation of abdominal pain and nausea and emesis and dehydration. The patient's CAT scan of the abdomen shows some mild ileus. No active issues with oxygenation. Patient is currently on room air oxygen. No clear indication for pneumonia. The patient is on Decadron. Hyperchloremic hypernatremia secondary to intravascular volume dehydration/depletion, the BUN is also elevated. Coronary artery disease Chronic atrial fibrillation History of bleeding cancer with previous surgery followed by chemotherapy and radiation therapy and the patient had admission Chronic lower extremity edema History of hypertension Hyperlipidemia Obstructive sleep apnea. Hypothyroidism Osteoarthritis Diabetes mellitus Rosacea History of colonic polyps Migraines Plan Advance diet as tolerated, currently asymptomatic CAT scan of the abdomen was noted Chest x-ray was noted No clear indication for pneumonia and the patient is currently on room air oxygen Continue Decadron and completed total of 6-7 day course Monitor the electrolytes and continue with IV fluids We'll continue to follow
[2022-06-21 16:25] LABS: Glucose,Whole Blood 164 mg/dL (70-110)
--- NOTE | 2022-06-21 19:02 | P.PN ---
Subjective This is a pleasant 70 years old female with past medical history of hypertension, hyperlipidemia, diabetes mellitus, hypothyroidism, asthma, atrial fibrillation not on anticoagulation, osteoarthritis, sleep apnea, ovarian cancer status post surgery and chemoradiotherapy in 2000, left vocal cord paralysis, diabetic neuropathy, anxiety and depression Patient presents because of 5 days of abdominal pain, periumbilical, nonradiating about 10/10 in severity, nonspecific. Associated with vomiting about 10 times. Last bowel movement was yesterday m orning but she is currently passing gases. She denies chest pain but she reports some little dyspnea. She is coughing with some yellow phlegm. Patient was recently diagnosed with Covid infection about one week ago when she tested herself at home. Her PCP is Dr. Dudley, also she is on liquids for her A. fib and last dose was last night. Her infertility nurse is Dr. Morel in [facility] She has history of sleep apnea on she is on CPAP . She denies smoking or illicit drugs. Drinks alcohol occasionally Vitals are stable and patient is afebrile. showing mild leukocytosis at 12.4, rest of CBC is unremarkable. Creatinine 1.36, baseline is 1.0 Negative troponin. Lipase normal 75. Urine analysis is negative. Acetone is negative EKG showing normal sinus rhythm at [address]-T changes CT of the abdomen and pelvis without contrast: Dilated small bowel. This is extending to the terminal ileum without evidence of an obstructing lesion. This is likely related to generalized ileus, pleural thickening and atelectasis Emergency room she was received normal saline, Pepcid, Zofran as needed and Dilaudid. 06/21/2022 Patient states that his breathing is little better, however oxygen saturation was 95% on room air and she's not significantly symptomatic. Inflammatory markers does not appear to be significantly elevated therefore Covid pneumonia is unlikely. Most likely patient had atelectasis rather than pneumonia on the chest x-ray. Her abdominal ileus is improving, she had a bowel movement today and she was started on liquid diet. She is not on home oxygen, she has Eliquis at home. Pulmonary and surgery team input is appreciated Objective - Vital Signs Vital signs: Vital Signs Temp 98.9 F 06/21/22 09:56 Pulse 86 06/21/22 09:56 Resp 20 06/21/22 09:56 BP 117/73 06/21/22 09:56 Pulse Ox 96 06/21/22 09:56 FiO2 Intake & Output 06/20/22 06/21/22 06/21/22 18:59 06:59 18:59 Output Total 900 Balance -900 Weight 81.647 kg Output: Emesis 900 Other: Voiding Method Bedside Commode # Voids 0 - Exam GENERAL: The patient is alert and oriented x3, not in any acute distress. Well developed, well nourished. HEENT: Pupils are round and equally reacting to light. EOMI. No scleral icterus. No conjunctival pallor. Normocephalic, atraumatic. No pharyngeal erythema. No thyromegaly. CARDIOVASCULAR: S1 and S2 present. No murmurs, rubs, or gallops. PULMONARY: Chest is clear to auscultation, no wheezing or crackles. ABDOMEN: Soft, nontender, nondistended, normoactive bowel sounds. No palpable organomegaly. MUSCULOSKELETAL: No joint swelling or deformity. EXTREMITIES: No cyanosis, clubbing, or pedal edema. NEUROLOGICAL: Gross neurological examination did not reveal any focal deficits. SKIN: No rashes. no petechiae. - Labs CBC & Chem 7: 06/21/22 05:45 06/21/22 05:45 Labs: Abnormal Lab Results - Last 24 Hours (Table) 06/20/22 06/20/22 06/20/22 Range/Units 04:32 04:32 17:47 MCHC (32.0-37.0) g/dL RDW (11.5-14.5) % Lymphocytes # (0.90-5.00) X 10*3/uL Eosinophils # (0.04-0.35) X 10*3/uL Sodium (135-145) mmol/L Chloride (96-109) mmol/L BUN (9.0-27.0) mg/dL BUN/Creatinine Ratio (12.00-20.00) Ratio Glucose (70-110) mg/dL POC Glucose (mg/dL) 243 H (70-110) mg/dL Calcium (8.7-10.3) mg/dL Magnesium (1.5-2.4) mg/dL Total Bilirubin (0.30-1.20) mg/dL C-Reactive Protein 1.2 H (<1.0) mg/dL Total Protein (6.2-8.2) g/dL Procalcitonin 0.10 H (0.02-0.09) ng/mL 06/20/22 06/21/22 06/21/22 Range/Units 20:36 05:45 05:45 MCHC 31.6 L (32.0-37.0) g/dL RDW 15.7 H (11.5-14.5) % Lymphocytes # 0.31 L (0.90-5.00) X 10*3/uL Eosinophils # 0 L (0.04-0.35) X 10*3/uL Sodium 148 H (135-145) mmol/L Chloride 113 H (96-109) mmol/L BUN 45.9 H (9.0-27.0) mg/dL BUN/Creatinine Ratio 51.00 H (12.00-20.00) Ratio Glucose 163 H (70-110) mg/dL POC Glucose (mg/dL) 217 H (70-110) mg/dL Calcium 8.6 L (8.7-10.3) mg/dL Magnesium 2.6 H (1.5-2.4) mg/dL Total Bilirubin 0.20 L (0.30-1.20) mg/dL C-Reactive Protein (<1.0) mg/dL Total Protein 5.8 L (6.2-8.2) g/dL Procalcitonin (0.02-0.09) ng/mL 06/21/22 06/21/22 Range/Units 06:00 11:25 MCHC (32.0-37.0) g/dL RDW (11.5-14.5) % Lymphocytes # (0.90-5.00) X 10*3/uL Eosinophils # (0.04-0.35) X 10*3/uL Sodium (135-145) mmol/L Chloride (96-109) mmol/L BUN (9.0-27.0) mg/dL BUN/Creatinine Ratio (12.00-20.00) Ratio Glucose (70-110) mg/dL POC Glucose (mg/dL) 157 H 202 H (70-110) mg/dL Calcium (8.7-10.3) mg/dL Magnesium (1.5-2.4) mg/dL Total Bilirubin (0.30-1.20) mg/dL C-Reactive Protein (<1.0) mg/dL Total Protein (6.2-8.2) g/dL Procalcitonin (0.02-0.09) ng/mL Assessment and Plan Assessment: Acute small bowel obstruction versus generalized ileus, improving Recent Covid infection with no pneumonia Mild acute kidney injury Hypertension Hyperlipidemia Diabetes mellitus, with hyperglycemia on admission Hypothyroidism Diabetic neuropathy History of asthma Chronic atrial fibrillation not on anticoagulation History of osteoarthritis History of sleep apnea History of , ovarian cancer status post surgery and chemoradiotherapy in 2000 History of vocal cord paralysis status post surgery history of depression and anxiety Plan: This is a pleasant 72 years old female who presents with small bowel obstruction Start liquid diet IV fluid Pain medication Surgery consult Continue Decadron Check hemoglobin A1c Labs and medication were reviewed.. Continue same treatment. Continue with symptomatic treatment. Resume home medication. Monitor lytes and vitals. DVT and GI prophylaxis. Further recommendations as per clinical course of the patient DVT prophylaxis: " Resume Eliquis GI Prophylaxis: Ppi PT/OT: Pending Prognosis is guarded
[2022-06-21] MEDS: APIXABAN 5 MG TAB PO SCH (22:36)
[2022-06-21 22:44] LABS: Glucose,Whole Blood 212 mg/dL (70-110)
[2022-06-22] MEDS ORDERED: BACLOFEN 10 MG TAB PO PRN (02:39)
[2022-06-22] MEDS ORDERED: ALPRAZolam 0.5 MG TAB PO STA (04:10)
[2022-06-22] MEDS: SODIUM CHLORIDE 0.9% 1,000 ML IV SCH (04:20)
[2022-06-22 04:52] LABS: Glucose,Whole Blood 137 mg/dL (70-110)
--- NOTE | 2022-06-22 04:57 | XR ---
EXAMINATION TYPE: XR chest 1V portable DATE OF EXAM: 06/22/2022 COMPARISON: 06/20/2022 HISTORY: Short of breath TECHNIQUE: FINDINGS: Heart is normal. Lungs are clear of infiltrate. There is some mild blunting right costophre judit angle. No obvious heart failure. There are chest leads. IMPRESSION: There is a mild pleural reaction at the right lung base that is increased. No heart failu re.
[2022-06-22] MEDS: INSULIN ASPART (NovoLOG) 100 UNIT/ML VIAL SQ SCH ×5 (05:11→20:48)
[2022-06-22] MEDS ORDERED: BENZONATATE 100 MG CAP PO PRN (05:13)
[2022-06-22] MEDS ORDERED: ALBUTEROL NEBULIZED 2.5 MG/3 ML INHALATION PRN (05:13)
[2022-06-22] MEDS ORDERED: LORazepam 0.5 MG TAB PO PRN (05:13)
[2022-06-22] MEDS: HYDROmorphone 0.5 MG/0.5 ML SYRINGE IVP PRN ×2 (07:28→20:58)
[2022-06-22] MEDS: LEVOTHYROXINE 25 MCG TAB PO SCH (07:28)
[2022-06-22] MEDS: ALBUTEROL HFA INHALER INHALATION PRN ×3 (08:15→21:17)
[2022-06-22] MEDS: SYMBICORT 160-4.5 MCG INHALER INHALATION SCH ×2 (08:15→21:17)
[2022-06-22] MEDS ORDERED: NIRMATRELVIR PO SCH (09:00)
[2022-06-22] MEDS ORDERED: RITONAVIR PO SCH (09:00)
[2022-06-22] MEDS ORDERED: NON FORMULARY DRUG (Vilazodone Hcl [Viibryd] 10 MG Tablet) PO SCH (09:00)
[2022-06-22] MEDS ORDERED: [UNRECOGNIZED DRUG - OTHER] PO SCH (09:00)
[2022-06-22] MEDS: CHOLECALCIFEROL 25 MCG (1000 IU) TABLET PO SCH (09:21)
[2022-06-22] MEDS: ZINC SULFATE 220 MG CAP PO SCH (09:21)
[2022-06-22] MEDS: GABAPENTIN 100 MG CAP PO SCH ×2 (09:21→20:48)
[2022-06-22] MEDS: GABAPENTIN 300 MG CAP PO SCH ×2 (09:21→20:23)
[2022-06-22] MEDS: EZETIMIBE 10 MG TAB PO SCH (09:21)
[2022-06-22] MEDS: ASCORBIC ACID 500 MG TAB PO SCH (09:21)
[2022-06-22] MEDS: FAMOTIDINE 20 MG TAB PO SCH ×2 (09:21→20:22)
[2022-06-22] MEDS: APIXABAN 5 MG TAB PO SCH ×2 (09:22→20:22)
[2022-06-22] MEDS: FOLIC ACID 1 MG TAB PO SCH (09:22)
[2022-06-22] MEDS: TORSEMIDE 20 MG TAB PO SCH (09:22)
[2022-06-22] MEDS: PANTOPRAZOLE 40 MG/10 ML VIAL IV SCH (09:23)
[2022-06-22] MEDS: SACUBITRIL/VALSARTAN 24 MG-26 MG TABLET PO SCH ×2 (09:23→20:22)
[2022-06-22] MEDS: NITROGLYCERIN 0.2MG/HR PATCH TRANSDERM SCH (09:30)
[2022-06-22] MEDS: FUROSEMIDE 10 MG TAB PO SCH (09:30)
[2022-06-22] MEDS: FENOFIBRATE 54 MG TAB PO SCH (09:30)
[2022-06-22] MEDS: DEXAMETHASONE SOD PHOSPHATE 10 MG/ML 1 ML VIAL IVP SCH (09:30)
[2022-06-22] MEDS: BISOPROLOL 5 MG TAB PO SCH ×2 (09:32→20:23)
[2022-06-22] MEDS: Vilazodone Hcl [Viibryd] 10 MG Tablet PO SCH (11:18)
[2022-06-22 11:41] LABS: Glucose,Whole Blood 262 mg/dL (70-110)
--- NOTE | 2022-06-22 12:05 | P.PN ---
Subjective Progress Note Date: 06/22/22 06/22/2022, no respiratory distress and the patient remains on room air oxygen. No nausea vomiting or emesis to no fever or chills. Remains on Decadron. The blood sugar slightly elevated because of Decadron use. No other significant issues otherwise for now. Objective - Vital Signs Vital signs: Vital Signs Temp 97.4 F L 06/22/22 08:00 Pulse 81 06/22/22 08:00 Resp 17 06/22/22 08:00 BP 128/70 06/22/22 08:00 Pulse Ox 96 06/22/22 08:00 FiO2 Intake & Output 06/21/22 06/22/22 06/22/22 18:59 06:59 18:59 Intake Total 3840 Output Total 400 Balance 3840 -400 Intake: Oral 3840 Output: Urine 400 Other: Voiding Method Bedside Commode # Voids 7 4 # Bowel Movements 4 - Exam The patient appeared well nourished and normally developed. Vital signs as documented. Head exam is unremarkable. No scleral icterus or corneal arcus noted. Neck is without jugular venous distension, thyromegaly, or carotid bruits. Carotid upstrokes are brisk bilaterally. Lungs are clear to auscultation and percussion. Cardiac exam reveals the PMI to be normally sized and situated. Rhythm is regular. First and second heart sounds normal. No murmurs, rubs or gallops. Abdominal exam reveals normal bowel sounds, no masses, no organomegaly and no aortic enlargement. Extremities are nonedematous and both femoral and pedal pulses are normal. - Labs CBC & Chem 7: 06/21/22 05:45 06/21/22 05:45 Labs: Abnormal Lab Results - Last 24 Hours (Table) 06/21/22 06/21/22 06/22/22 Range/Units 16:22 22:41 04:47 POC Glucose (mg/dL) 164 H 212 H 137 H (70-110) mg/dL 06/22/22 Range/Units 11:40 POC Glucose (mg/dL) 262 H (70-110) mg/dL Assessment and Plan Plan: COVID 19 infection and a patient with been vaccinated 3 Moderna and the patient was completing a course of Paxlovid on outpatient basis. The patient became symptomatic and the patient developed increased gastrointestinal symptoms and for that reason the patient was admitted to the hospital floor evaluation of abdominal pain and nausea and emesis and dehydration. The patient's CAT scan of the abdomen shows some mild ileus. No active issues with oxygenation. Patient is currently on room air oxygen. No clear indication for pneumonia. The patient is on Decadron. Hyperchloremic hypernatremia secondary to intravascular volume dehyd ration/depletion, the BUN is also elevated. Coronary artery disease Chronic atrial fibrillation History of bleeding cancer with previous surgery followed by chemotherapy and radiation therapy and the patient had admission Chronic lower extremity edema History of hypertension Hyperlipidemia Obstructive sleep apnea. Hypothyroidism Osteoarthritis Diabetes mellitus Rosacea History of colonic polyps Migraines Plan No active pulmonary issues and the patient remains on room air oxygen GI symptoms have improved The Computed Tomography Scan of the Abdomen Was Noted Possible discharge home today
[2022-06-22 16:33] LABS: Glucose,Whole Blood 294 mg/dL (70-110)
--- NOTE | 2022-06-22 19:30 | P.PN ---
Subjective This is a pleasant 70 years old female with past medical history of hypertension, hyperlipidemia, diabetes mellitus, hypothyroidism, asthma, atrial fibrillation not on anticoagulation, osteoarthritis, sleep apnea, ovarian cancer status post surgery and chemoradiotherapy in 2000, left vocal cord paralysis, diabetic neuropathy, anxiety and depression Patient presents because of 5 days of abdominal pain, periumbilical, nonradiating about 10/10 in severity, nonspecific. Associated with vomiting about 10 times. Last bowel movement was yesterday m orning but she is currently passing gases. She denies chest pain but she reports some little dyspnea. She is coughing with some yellow phlegm. Patient was recently diagnosed with Covid infection about one week ago when she tested herself at home. Her PCP is Dr. Dudley, also she is on liquids for her A. fib and last dose was last night. Her finance assistant is Dr. Morel in [facility] She has history of sleep apnea on she is on CPAP . She denies smoking or illicit drugs. Drinks alcohol occasionally Vitals are stable and patient is afebrile. showing mild leukocytosis at 12.4, rest of CBC is unremarkable. Creatinine 1.36, baseline is 1.0 Negative troponin. Lipase normal 75. Urine analysis is negative. Acetone is negative EKG showing normal sinus rhythm at [address]-T changes CT of the abdomen and pelvis without contrast: Dilated small bowel. This is extending to the terminal ileum without evidence of an obstructing lesion. This is likely related to generalized ileus, pleural thickening and atelectasis Emergency room she was received normal saline, Pepcid, Zofran as needed and Dilaudid. 06/21/2022 Patient states that his breathing is little better, however oxygen saturation was 95% on room air and she's not significantly symptomatic. Inflammatory markers does not appear to be significantly elevated therefore Covid pneumonia is unlikely. Most likely patient had atelectasis rather than pneumonia on the chest x-ray. Her abdominal ileus is improving, she had a bowel movement today and she was started on liquid diet. She is not on home oxygen, she has Eliquis at home. Pulmonary and surgery team input is appreciated 06/22/2022 Patient breathing is back to normal and she is in room air and chest x-ray is noted showing mild pleural reaction on the right but there is no significant heart failure or consolidation when I reviewed by myself. Her gastroenteritis is also improving and she tolerates liquid diet, she wants diet to be advanced. Abdominal pain is stable at 3/10, she had bowel movement. Gen. he is on dexamethasone Pulmonary team. The patient Surgical team of the case Possible discharge in 24-48 hours Objective - Vital Signs Vital signs: Vital Signs Temp 97.4 F L 06/22/22 08:00 Pulse 81 06/22/22 08:00 Resp 17 06/22/22 08:00 BP 128/70 06/22/22 08:00 Pulse Ox 96 06/22/22 08:00 FiO2 Intake & Output 06/21/22 06/22/22 06/22/22 18:59 06:59 18:59 Intake Total 3840 Output Total 400 Balance 3840 -400 Intake: Oral 3840 Output: Urine 400 Other: Voiding Method Bedside Commode # Voids 7 4 # Bowel Movements 4 - Exam GENERAL: The patient is alert and oriented x3, not in any acute distress. Well developed, well nourished. HEENT: Pupils are round and equally reacting to light. EOMI. No scleral icterus. No conjunctival pallor. Normocephalic, atraumatic. No pharyngeal erythema. No thyromegaly. CARDIOVASCULAR: S1 and S2 present. No murmurs, rubs, or gallops. PULMONARY: Chest is clear to auscultation, no wheezing or crackles. ABDOMEN: Soft, nontender, nondistended, normoactive bowel sounds. No palpable organomegaly. MUSCULOSKELETAL: No joint swelling or deformity. EXTREMITIES: No cyanosis, clubbing, or pedal edema. NEUROLOGICAL: Gross neurological examination did not reveal any focal deficits. SKIN: No rashes. no petechiae. - Labs CBC & Chem 7: 06/21/22 05:45 06/21/22 05:45 Labs: Abnormal Lab Results - Last 24 Hours (Table) 06/21/22 06/21/22 06/22/22 Range/Units 16:22 22:41 04:47 POC Glucose (mg/dL) 164 H 212 H 137 H (70-110) mg/dL 06/22/22 Range/Units 11:40 POC Glucose (mg/dL) 262 H (70-110) mg/dL Assessment and Plan Assessment: Acute small bowel obstruction versus generalized ileus, improving Recent Covid infection with no pneumonia Mild acute kidney injury Hypertension Hyperlipidemia Diabetes mellitus, with hyperglycemia on admission Hypothyroidism Diabetic neuropathy History of asthma Chronic atrial fibrillation not on anticoagulation History of osteoarthritis History of sleep apnea History of , ovarian cancer status post surgery and chemoradiotherapy in 2000 History of vocal cord paralysis status post surgery history of depression and anxiety Plan: This is a pleasant 72 years old female who presents with small bowel obstruction Start liquid diet IV fluid Pain medication Surgery consult Continue Decadron Check hemoglobin A1c Labs and medication were reviewed.. Continue same treatment. Continue with symptomatic treatment. Resume home medication. Monitor lytes and vitals. DVT and GI prophylaxis. Further recommendations as per clinical course of the patient DVT prophylaxis: " Resume Eliquis GI Prophylaxis: Ppi PT/OT: Pending Prognosis is guarded
[2022-06-22] MEDS ORDERED: SYMBICORT 160-4.5 MCG INHALER INHALATION SCH (20:00)
[2022-06-22] MEDS: MONTELUKAST 10 MG TAB PO SCH (20:22)
[2022-06-22] MEDS: FLUTICASONE 50MCG/SPRAY NASAL 16GM EA NOSTRIL SCH (20:24)
[2022-06-22 20:43] LABS: Glucose,Whole Blood 260 mg/dL (70-110)
[2022-06-22] MEDS: TIOTROPIUM 2.5 MCG INHALER INHALATION SCH (21:16)
[2022-06-23] MEDS: LEVOTHYROXINE 25 MCG TAB PO SCH (05:54)
[2022-06-23 07:05] LABS: Glucose,Whole Blood 182 mg/dL (70-110)
[2022-06-23] MEDS: ALBUTEROL HFA INHALER INHALATION PRN (07:39)
[2022-06-23] MEDS: TIOTROPIUM 2.5 MCG INHALER INHALATION SCH (07:39)
[2022-06-23] MEDS: SYMBICORT 160-4.5 MCG INHALER INHALATION SCH ×2 (07:40→20:22)
[2022-06-23] MEDS: EZETIMIBE 10 MG TAB PO SCH (08:25)
[2022-06-23] MEDS: FOLIC ACID 1 MG TAB PO SCH (08:25)
[2022-06-23] MEDS: DEXAMETHASONE SOD PHOSPHATE 10 MG/ML 1 ML VIAL IVP SCH (08:25)
[2022-06-23] MEDS: ASCORBIC ACID 500 MG TAB PO SCH (08:26)
[2022-06-23] MEDS: APIXABAN 5 MG TAB PO SCH ×2 (08:26→20:54)
[2022-06-23] MEDS: GABAPENTIN 300 MG CAP PO SCH ×2 (08:26→20:54)
[2022-06-23] MEDS: CHOLECALCIFEROL 25 MCG (1000 IU) TABLET PO SCH (08:26)
[2022-06-23] MEDS: FAMOTIDINE 20 MG TAB PO SCH ×2 (08:26→20:54)
[2022-06-23] MEDS: GABAPENTIN 100 MG CAP PO SCH ×2 (08:26→20:53)
[2022-06-23] MEDS: INSULIN ASPART (NovoLOG) 100 UNIT/ML VIAL SQ SCH ×4 (08:26→20:53)
[2022-06-23] MEDS: ZINC SULFATE 220 MG CAP PO SCH (08:26)
[2022-06-23] MEDS: PANTOPRAZOLE 40 MG TABLET PO SCH (08:26)
[2022-06-23] MEDS: TORSEMIDE 20 MG TAB PO SCH (08:27)
[2022-06-23] MEDS: FUROSEMIDE 10 MG TAB PO SCH (08:27)
[2022-06-23] MEDS: FENOFIBRATE 54 MG TAB PO SCH (08:27)
[2022-06-23] MEDS: NITROGLYCERIN 0.2MG/HR PATCH TRANSDERM SCH (08:27)
[2022-06-23] MEDS: SACUBITRIL/VALSARTAN 24 MG-26 MG TABLET PO SCH ×2 (08:27→21:32)
[2022-06-23] MEDS: Vilazodone Hcl [Viibryd] 10 MG Tablet PO SCH (08:28)
[2022-06-23] MEDS: BISOPROLOL 5 MG TAB PO SCH ×2 (08:28→20:54)
[2022-06-23] MEDS ORDERED: NON FORMULARY DRUG (Evolocumab [Repatha Sureclick] 140 MG/ML Each) SQ SCH (09:00)
--- NOTE | 2022-06-23 10:35 | P.PN ---
Subjective Progress Note Date: 06/22/22 CHIEF COMPLAINT: Ileus HISTORY OF PRESENT ILLNESS: The patient is a 72-year-old female presented with ileus. She is having bowel movements. She is tolerating for liquid diet. ROS: No reports of nausea and vomiting. No fevers or chills. No new chest pain. PHYSICAL EXAM: VITAL SIGNS: Reviewed CONSTITUTIONAL: Well developed and in no acute distress. EYES: Conjuctivae without sclera icterus. Extraocular movements grossly intact. HEAD, EARS, NOSE, THROAT: Moist buccal mucosa. Head is atraumatic, normocephalic. Hears conversational speech. No nasal drainage. RESPIRATORY: Non-labored respirations and equal bilateral excursions. CARDIOVASCULAR: Palpable 2+ radial pulses. ABDOMEN: No peritonitis. MUSCULOSKELETAL: No gross deformity of the lower extremities noted. No clubbing. No cyanosis. SKIN: Good skin turgor. Well perfused. NEUROLOGIC: Cranial nerves II through XII grossly intact. No focal or lateralizing signs. PSYCH: Appropriate affect. Alert and oriented to person, place and time. CLINICAL LABS: Reviewed. WBC normal 6.14. Blood sugars 262, elevated hyperglycemia STUDIES: CT of the abdomen and pelvis reviewed demonstrates distended stomach. Colon decompressed. No free air. This is my independent interpretation. ASSESSMENT: 1. Ileus PLAN: 1. Clinically, patient stable. Continue full liquid diet 2. Correction of hyperglycemia. Objective - Vital Signs Vital signs: Vital Signs Temp 97.6 F 06/22/22 20:00 Pulse 89 06/22/22 20:00 Resp 20 06/22/22 20:00 BP 133/70 06/22/22 20:00 Pulse Ox 98 06/22/22 20:00 FiO2 Intake & Output 06/22/22 06/22/22 06/23/22 06:59 18:59 06:59 Output Total 400 Balance -400 Output: Urine 400 Other: Voiding Method Bedside Commode Bedside Commode # Voids 4 5 1 - Labs CBC & Chem 7: 06/21/22 05:45 06/21/22 05:45 Labs: Abnormal Lab Results - Last 24 Hours (Table) 06/22/22 06/22/22 06/22/22 Range/Units 04:47 11:40 16:33 POC Glucose (mg/dL) 137 H 262 H 294 H (70-110) mg/dL 06/22/22 Range/Units 20:42 POC Glucose (mg/dL) 260 H (70-110) mg/dL
[2022-06-23 11:31] LABS: Glucose,Whole Blood 270 mg/dL (70-110)
--- NOTE | 2022-06-23 11:39 | P.PN ---
Subjective Progress Note Date: 06/23/22 06/23/2022, the patient is doing well on room air oxygen. He is utilizing the CPAP overnight. No respiratory difficulties. No GI complaints. Blood sugars slightly elevated because the utilization of steroids. Sleeping well. No new complaints Objective - Vital Signs Vital signs: Vital Signs Temp 97.7 F 06/23/22 08:56 Pulse 81 06/23/22 08:56 Resp 18 06/23/22 08:56 BP 151/80 06/23/22 08:56 Pulse Ox 98 06/23/22 08:56 FiO2 Intake & Output 06/22/22 06/23/22 06/23/22 18:59 06:59 18:59 Other: Voiding Method Bedside Commode # Voids 5 1 - Exam The patient appeared well nourished and normally developed. Vital signs as documented. Head exam is unremarkable. No scleral icterus or corneal arcus noted. Neck is without jugular venous distension, thyromegaly, or carotid bruits. Carotid upstrokes are brisk bilaterally. Lungs are clear to auscultation and percussion. Cardiac exam reveals the PMI to be normally sized and situated. Rhythm is regular. First and second heart sounds normal. No murmurs, rubs or gallops. Abdominal exam reveals normal bowel sounds, no masses, no organomegaly and no aortic enlargement. Extremities are nonedematous and both femoral and pedal pulses are normal. - Labs CBC & Chem 7: 06/21/22 05:45 06/21/22 05:45 Labs: Abnormal Lab Results - Last 24 Hours (Table) 06/22/22 06/22/22 06/22/22 Range/Units 11:40 16:33 20:42 POC Glucose (mg/dL) 262 H 294 H 260 H (70-110) mg/dL 06/23/22 Range/Units 07:03 POC Glucose (mg/dL) 182 H (70-110) mg/dL Assessment and Plan Plan: COVID 19 infection and a patient with been vaccinated 3 Moderna and the patient was completing a course of Paxlovid on outpatient basis. The patient became symptomatic and the patient developed increased gastrointestinal symptoms and for that reason the patient was admitted to the hospital floor evaluation of abdominal pain and nausea and emesis and dehydration. The patient's CAT scan of the abdomen shows some mild ileus. No active issues with oxygenation. Patient is currently on room air oxygen. No clear indication for pneumonia. The patient is on Decadron. Hyperchloremic hypernatremia secondary to intravascular volume dehydration/depletion, the BUN is also elevated. Coronary artery disease Chronic atrial fibrillation History of bleeding cancer with previous surgery followed by chemotherapy and radiation therapy and the patient had admission Chronic lower extremity edema History of hypertension Hyperlipidemia Obstructive sleep apnea. Hypothyroidism Osteoarthritis Diabetes mellitus Rosacea History of colonic polyps Migraines Plan Clinically unchanged Room air oxygen Utilizing CPAP overnight No active pulmonary issues and the patient remains on room air oxygen GI symptoms have improved CAT scan of the abdomen was negative Suggest repeating labs Possible discharge home
--- NOTE | 2022-06-23 12:22 | P.PN ---
Subjective This is a pleasant 70 years old female with past medical history of hypertension, hyperlipidemia, diabetes mellitus, hypothyroidism, asthma, atrial fibrillation not on anticoagulation, osteoarthritis, sleep apnea, ovarian cancer status post surgery and chemoradiotherapy in 2000, left vocal cord paralysis, diabetic neuropathy, anxiety and depression Patient presents because of 5 days of abdominal pain, periumbilical, nonradiating about 10/10 in severity, nonspecific. Associated with vomiting about 10 times. Last bowel movement was yesterday m orning but she is currently passing gases. She denies chest pain but she reports some little dyspnea. She is coughing with some yellow phlegm. Patient was recently diagnosed with Covid infection about one week ago when she tested herself at home. Her PCP is Dr. Dudley, also she is on liquids for her A. fib and last dose was last night. Her registered diet technician is Dr. Morel in [facility] She has history of sleep apnea on she is on CPAP . She denies smoking or illicit drugs. Drinks alcohol occasionally Vitals are stable and patient is afebrile. showing mild leukocytosis at 12.4, rest of CBC is unremarkable. Creatinine 1.36, baseline is 1.0 Negative troponin. Lipase normal 75. Urine analysis is negative. Acetone is negative EKG showing normal sinus rhythm at [address]-T changes CT of the abdomen and pelvis without contrast: Dilated small bowel. This is extending to the terminal ileum without evidence of an obstructing lesion. This is likely related to generalized ileus, pleural thickening and atelectasis Emergency room she was received normal saline, Pepcid, Zofran as needed and Dilaudid. 06/21/2022 Patient states that his breathing is little better, however oxygen saturation was 95% on room air and she's not significantly symptomatic. Inflammatory markers does not appear to be significantly elevated therefore Covid pneumonia is unlikely. Most likely patient had atelectasis rather than pneumonia on the chest x-ray. Her abdominal ileus is improving, she had a bowel movement today and she was started on liquid diet. She is not on home oxygen, she has Eliquis at home. Pulmonary and surgery team input is appreciated 06/22/2022 Patient breathing is back to normal and she is in room air and chest x-ray is noted showing mild pleural reaction on the right but there is no significant heart failure or consolidation when I reviewed by myself. Her gastroenteritis is also improving and she tolerates liquid diet, she wants diet to be advanced. Abdominal pain is stable at 3/10, she had bowel movement. Gen. he is on dexamethasone Pulmonary team. The patient Surgical team of the case Possible discharge in 24-48 hours 06/23/2022 Patient tolerated his diet well, no vomiting, abdominal pain is also improving however she still reports some swallowing difficulty although she thinks is improving and this could be related to repeated vomiting. Patient's although clinically improving she wants to wait until tomorrow to her swallow problem is improved. Her breathing pattern is back to baseline and she is on room air. Pulmonary team cleared her. Check labs today Objective - Vital Signs Vital signs: Vital Signs Temp 97.7 F 06/23/22 08:56 Pulse 81 06/23/22 08:56 Resp 18 06/23/22 08:56 BP 151/80 06/23/22 08:56 Pulse Ox 98 06/23/22 08:56 FiO2 Intake & Output 06/22/22 06/23/22 06/23/22 18:59 06:59 18:59 Other: Voiding Method Bedside Commode # Voids 5 1 - Exam GENERAL: The patient is alert and oriented x3, not in any acute distress. Well developed, well nourished. HEENT: Pupils are round and equally reacting to light. EOMI. No scleral icterus. No conjunctival pallor. Normocephalic, atraumatic. No pharyngeal erythema. No thyromegaly. CARDIOVASCULAR: S1 and S2 present. No murmurs, rubs, or gallops. PULMONARY: Chest is clear to auscultation, no wheezing or crackles. ABDOMEN: Soft, nontender, nondistended, normoactive bowel sounds. No palpable organomegaly. MUSCULOSKELETAL: No joint swelling or deformity. EXTREMITIES: No cyanosis, clubbing, or pedal edema. NEUROLOGICAL: Gross neurological examination did not reveal any focal deficits. SKIN: No rashes. no petechiae. - Labs CBC & Chem 7: 06/21/22 05:45 06/21/22 05:45 Labs: Abnormal Lab Results - Last 24 Hours (Table) 06/22/22 06/22/22 06/23/22 Range/Units 16:33 20:42 07:03 POC Glucose (mg/dL) 294 H 260 H 182 H (70-110) mg/dL 06/23/22 Range/Units 11:28 POC Glucose (mg/dL) 270 H (70-110) mg/dL Assessment and Plan Assessment: Acute small bowel obstruction versus generalized ileus, improving Recent Covid infection with no pneumonia Mild acute kidney injury Hypertension Hyperlipidemia Diabetes mellitus, with hyperglycemia on admission Hypothyroidism Diabetic neuropathy History of asthma Chronic atrial fibrillation not on anticoagulation History of osteoarthritis History of sleep apnea History of , ovarian cancer status post surgery and chemoradiotherapy in 2000 History of vocal cord paralysis status post surgery history of depression and anxiety Plan: This is a pleasant 72 years old female who presents with small bowel obstruction Start liquid diet IV fluid Pain medication Surgery consult Continue Decadron Check swallow evaluation Labs and medication were reviewed.. Continue same treatment. Continue with symptomatic treatment. Resume home medication. Monitor lytes and vitals. DVT and GI prophylaxis. Further recommendations as per clinical course of the patient DVT prophylaxis: " Resume Eliquis GI Prophylaxis: Ppi PT/OT: Pending Prognosis is guarded
[2022-06-23 13:02] LABS: Basophils % (A) 0 %; Eosinophils % (A) 0 %; HCT 41.4 % (34.0-46.0); HGB 13.9 gm/dL (11.4-16.0); Lymphocytes # (A) 0.3 k/uL (1.0-4.8); Lymphocytes % (A) 6 %; MCH 29.8 pg (25.0-35.0); MCHC 33.4 g/dL (31.0-37.0); Mean Platelet Volume 7.4; Monocytes # (A) 0.3 k/uL (0-1.0); Monocytes % (A) 5 %; Neutrophils # (A) 4.7 k/uL (1.3-7.7); Neutrophils % (A) 88 %; Platelet Count 319 k/uL (150-450); RBC 4.66 m/uL (3.80-5.40); RDW 14.9 % (11.5-15.5); WBC 5.3 k/uL (3.8-10.6)
[2022-06-23 13:15] LABS: African American GFR (CKD) >90 (>60 ml/min/1.73 sqM); Anion Gap 11 mmol/L; Blood Urea Nitrogen 28 mg/dL (7-17); Calcium 8.9 mg/dL (8.4-10.2); Carbon Dioxide 27 mmol/L (22-30); Chloride 97 mmol/L (98-107); Glucose 241 mg/dL (74-99); Magnesium 1.9 mg/dL (1.6-2.3); Non-African American GFR(CKD) 86 (>60 ml/min/1.73 sqM); Potassium 4.1 mmol/L (3.5-5.1); Sodium 135 mmol/L (137-145)
[2022-06-23 16:33] LABS: Glucose,Whole Blood 221 mg/dL (70-110)
[2022-06-23 20:06] LABS: Glucose,Whole Blood 209 mg/dL (70-110)
[2022-06-23] MEDS: MONTELUKAST 10 MG TAB PO SCH (20:54)
[2022-06-23] MEDS: FLUTICASONE 50MCG/SPRAY NASAL 16GM EA NOSTRIL SCH (20:54)
[2022-06-23] MEDS: HYDROmorphone 0.5 MG/0.5 ML SYRINGE IVP PRN (21:00)
--- NOTE | 2022-06-23 21:51 | P.PN ---
Subjective Progress Note Date: 06/23/22 CHIEF COMPLAINT: Ileus HISTORY OF PRESENT ILLNESS: The patient is a 72-year-old female presented with ileus. She is tolerating regular diet. Abdominal pain resolving. No further intractable nausea and vomiting. ROS: No reports of nausea and vomiting. No fevers or chills. No new chest pain. PHYSICAL EXAM: VITAL SIGNS: Reviewed CONSTITUTIONAL: Well developed and in no acute distress. EYES: Conjuctivae without sclera icterus. Extraocular movements grossly intact. HEAD, EARS, NOSE, THROAT: Moist buccal mucosa. Head is atraumatic, normocephalic. Hears conversational speech. No nasal drainage. RESPIRATORY: Non-labored respirations and equal bilateral excursions. CARDIOVASCULAR: Palpable 2+ radial pulses. ABDOMEN: No peritonitis. MUSCULOSKELETAL: No gross deformity of the lower extremities noted. No clubbing. No cyanosis. SKIN: Good skin turgor. Well perfused. NEUROLOGIC: Cranial nerves II through XII grossly intact. No focal or lateralizing signs. PSYCH: Appropriate affect. Alert and oriented to person, place and time. CLINICAL LABS: Reviewed. WBC normal at 5.3 ASSESSMENT: 1. Ileus PLAN: 1. Overall, patient moderately improved. 2. Stable for discharge from surgical standpoint Objective - Vital Signs Vital signs: Vital Signs Temp 97.7 F 06/23/22 08:56 Pulse 81 06/23/22 08:56 Resp 18 06/23/22 08:56 BP 151/80 06/23/22 08:56 Pulse Ox 98 06/23/22 08:56 FiO2 Intake & Output 06/22/22 06/23/22 06/23/22 18:59 06:59 18:59 Other: Voiding Method Bedside Commode # Voids 5 1 - Labs CBC & Chem 7: 06/23/22 12:46 06/23/22 12:46 Labs: Abnormal Lab Results - Last 24 Hours (Table) 06/22/22 06/22/22 06/23/22 Range/Units 16:33 20:42 07:03 Lymphocytes # (1.0-4.8) k/uL Sodium (137-145) mmol/L Chloride (98-107) mmol/L BUN (7-17) mg/dL Glucose (74-99) mg/dL POC Glucose (mg/dL) 294 H 260 H 182 H (70-110) mg/dL 06/23/22 06/23/22 06/23/22 Range/Units 11:28 12:46 12:46 Lymphocytes # 0.3 L (1.0-4.8) k/uL Sodium 135 L (137-145) mmol/L Chloride 97 L (98-107) mmol/L BUN 28 H (7-17) mg/dL Glucose 241 H (74-99) mg/dL POC Glucose (mg/dL) 270 H (70-110) mg/dL
[2022-06-24] MEDS: LEVOTHYROXINE 25 MCG TAB PO SCH (05:43)
[2022-06-24 07:25] LABS: Glucose,Whole Blood 115 mg/dL (70-110)
[2022-06-24] MEDS: INSULIN ASPART (NovoLOG) 100 UNIT/ML VIAL SQ SCH ×2 (08:00→12:18)
[2022-06-24] MEDS: DEXAMETHASONE SOD PHOSPHATE 10 MG/ML 1 ML VIAL IVP SCH (08:14)
[2022-06-24] MEDS: SYMBICORT 160-4.5 MCG INHALER INHALATION SCH (09:02)
[2022-06-24] MEDS: ALBUTEROL HFA INHALER INHALATION PRN (09:02)
[2022-06-24] MEDS: ASCORBIC ACID 500 MG TAB PO SCH (09:33)
[2022-06-24] MEDS: CHOLECALCIFEROL 25 MCG (1000 IU) TABLET PO SCH (09:33)
[2022-06-24] MEDS: EZETIMIBE 10 MG TAB PO SCH (09:33)
[2022-06-24] MEDS: GABAPENTIN 100 MG CAP PO SCH (09:33)
[2022-06-24] MEDS: FAMOTIDINE 20 MG TAB PO SCH (09:34)
[2022-06-24] MEDS: FOLIC ACID 1 MG TAB PO SCH (09:34)
[2022-06-24] MEDS: GABAPENTIN 300 MG CAP PO SCH (09:34)
[2022-06-24] MEDS: PANTOPRAZOLE 40 MG TABLET PO SCH (09:34)
[2022-06-24] MEDS: APIXABAN 5 MG TAB PO SCH (09:34)
[2022-06-24] MEDS: ZINC SULFATE 220 MG CAP PO SCH (09:34)
[2022-06-24] MEDS: SACUBITRIL/VALSARTAN 24 MG-26 MG TABLET PO SCH (09:35)
[2022-06-24] MEDS: FUROSEMIDE 10 MG TAB PO SCH (09:35)
[2022-06-24] MEDS: FENOFIBRATE 54 MG TAB PO SCH (09:36)
[2022-06-24] MEDS: TORSEMIDE 20 MG TAB PO SCH (09:36)
[2022-06-24] MEDS: NITROGLYCERIN 0.2MG/HR PATCH TRANSDERM SCH (09:37)
[2022-06-24] MEDS: Vilazodone Hcl [Viibryd] 10 MG Tablet PO SCH (09:38)
[2022-06-24] MEDS: BISOPROLOL 5 MG TAB PO SCH (10:58)
[2022-06-24 11:00] VITALS: TEMP 98.5
[2022-06-24 11:27] LABS: Glucose,Whole Blood 287 mg/dL (70-110)
--- NOTE | 2022-06-24 13:44 | P.PN ---
Subjective Progress Note Date: 06/24/22 CHIEF COMPLAINT: Ileus HISTORY OF PRESENT ILLNESS: The patient is a 72-year-old female presented with ileus. She is tolerating regular diet. Patient reports improvement in her abdominal pain. Denies any nausea or vomiting. She is having bowel movements and flatus. Afebrile. PHYSICAL EXAM: VITAL SIGNS: Reviewed GENERAL: Well-developed in no acute distress. HEENT: No sclera icterus. Extraocular movements grossly intact. Moist buccal mucosa. Head is atraumatic, normocephalic. Hears conversational speech. No nasal drainage. NECK: Supple without lymphadenopathy. CHEST: Non-labored respirations and equal bilateral excursions. CARDIOVASCULAR: Palpable 2+ radial pulses. ABDOMEN: Soft. Nondistended. MUSCULOSKELETAL: No clubbing or cyanosis. NEUROLOGIC: No focal or lateralizing signs. Cranial nerves II through XII grossly intact. PSYCH: Appropriate affect. Alert and oriented to person, place and time. SKIN: Well perfused. Good skin turgor. ASSESSMENT: 1. Ileus PLAN: -Patient is stable for discharge from surgical standpoint -Continue regular diet Physician Assistant Principal note has been reviewed by physician. Signing provider agrees with the documented findings, assessment, and plan of care. Objective - Vital Signs Vital signs: Vital Signs Temp 98.5 F 06/24/22 11:00 Pulse 64 06/24/22 11:00 Resp 18 06/24/22 11:00 BP 140/63 06/24/22 11:00 Pulse Ox 96 06/24/22 11:00 FiO2 Intake & Output 06/23/22 06/24/22 06/24/22 18:59 06:59 18:59 Intake Total 540 240 Balance 540 240 Intake: Oral 540 240 Other: Voiding Method Bedside Commode Bedside Commode # Voids 3 2 - Labs CBC & Chem 7: 06/23/22 12:46 06/23/22 12:46 Labs: Abnormal Lab Results - Last 24 Hours (Table) 06/23/22 06/23/22 06/24/22 Range/Units 16:32 20:05 07:18 POC Glucose (mg/dL) 221 H 209 H 115 H (70-110) mg/dL 06/24/22 Range/Units 11:16 POC Glucose (mg/dL) 287 H (70-110) mg/dL
[2022-06-24 14:55] VITALS: BP 153/90; PULSE 69; RESP 20
--- NOTE | 2022-06-24 21:38 | P.DS ---
Providers Date of admission: 06/20/22 04:49 Attending physician: Pool Kim Consults: 06/20/22 11:55 Consult Physician Urgent Consulting Provider: Nick Samuel Consult Reason/Comments: covid pna Do you want consulting provider notified?: Yes 06/20/22 11:56 Consult Physician Urgent Consulting Provider: Antony Lepe Consult Reason/Comments: bowel obstruction Do you want consulting provider notified?: Yes Primary care physician: Pool Kim Hospital Course: Diagnoses Acute small bowel obstruction versus generalized ileus, improving Recent Covid infection with no pneumonia Mild acute kidney injury, resolved Hypertension Hyperlipidemia Diabetes mellitus, with hyperglycemia on admission Hypothyroidism Diabetic neuropathy History of asthma Chronic atrial fibrillation not on anticoagulation History of osteoarthritis History of sleep apnea History of , ovarian cancer status post surgery and chemoradiotherapy in 2000 History of vocal cord paralysis status post surgery history of depression and anxiety Hospital course: This is a pleasant 70 years old female with past medical history of hypertension, hyperlipidemia, diabetes mellitus, hypothyroidism, asthma, atrial fibrillation not on anticoagulation, osteoarthritis, sleep apnea, ovarian cancer status post surgery and chemoradiotherapy in 2000, left vocal cord paralysis, diabetic neuropathy, anxiety and depression Patient presents because of 5 days of abdominal pain, periumbilical, nonradiating about 10/10 in severity, nonspecific. CT of the abdomen and pelvis without contrast: Dilated small bowel. This is extending to the terminal ileum without evidence of an obstructing lesion. Patient evaluated by surgery team, she was treated conservatively, she showed interval improvement and her obstruction was resolved, she had regular bowel movement and she tolerates diet well and her abdominal pain significantly improved, she passed a swallow evaluation. Today she is as symptomatic with no chest pain or dyspnea, no diarrhea or constipation or vomiting. No urinary complaints. Patient was cleared for discharge by surgery team She was treated for Covid with steroids and multiple vitamins, she was discharged on short course of oral steroids for a few days. Problems and management plan were discussed with the patient and he verbalized understanding and acceptance Patient was found stable and can be discharged home in guarded prognosis however he needs follow-up as an outpatient. Patient was instructed to follow up with PCP Dr. Jacobsen within one week and patient agrees Patient was instructed to follow up with GI Dr. Orellana and surgery Dr. Lepe in 1-2 weeks and she agrees Physical exam Gen: patient is a AAOx3, no distress CVS: S1-S2, RRR, no murmur Lungs: B/L CTA, no wheezing Abdomen: soft, no distention, no tenderness, positive bowel sounds Extremity: no leg edema or induration Time spent more than 35 minutes Patient Condition at Discharge: Fair Plan - Discharge Summary Discharge Rx Participant: No New Discharge Prescriptions: New Zinc Sulfate [Orazinc] 220 mg PO DAILY #30 cap Famotidine [Pepcid] 20 mg PO BID #60 tab Ascorbic Acid [Vitamin C] 1,000 mg PO DAILY #60 tab Ondansetron [Zofran] 4 mg PO Q8HR PRN 3 Days #10 tab PRN Reason: Nausea And Vomiting Continue Levothyroxine Sodium [Levoxyl] 25 mcg PO QAM Fluticasone Propionate [Flonase Allergy Relief] 1 spray EA NOSTRIL HS Albuterol Sulfate [Proair Hfa] 2 puff INHALATION RT-TID PRN PRN Reason: Shortness Of Breath Montelukast [Singulair] 10 mg PO QAM Fenofibrate Nanocrystallized [Fenofibrate] 145 mg PO DAILY Gabapentin [Neurontin] 300 mg PO BID Famotidine [Pepcid] 20 mg PO BID metroNIDAZOLE 1% GEL [Metrogel 1%] 1 applic TOPICAL BID buPROPion HCL [Wellbutrin XL] 300 mg PO DAILY Bisoprolol Fumarate [Zebeta] 5 mg PO BID NIFEdipine [NIFEdipine ER (Osmotic)] 60 mg PO DAILY Empagliflozin [Jardiance] 25 mg PO DAILY Vilazodone HCl [Viibryd] 10 mg PO DAILY Umeclidinium [place] [Incruse Ellipta] 2 puff INHALATION RT-HS Pantoprazole [Protonix] 40 mg PO DAILY Nitroglycerin 0.2MG/Hr Patch [Nitro-Dur 0.2MG/Hr Patch] 1 patch TRANSDERM DAILY Budesonide-Formot 160-4.5 Mcg [Symbicort 160-4.5 Mcg Inhaler] 2 puff INHALATION RT-HS LORazepam [Ativan] 0.25 mg PO HS PRN PRN Reason: Anxiety dexAMETHasone [Decadron] 4 mg PO DAILY 3 Days #3 Cholecalciferol [Vitamin D3 (125 Mcg = 5000 Iu)] 125 mcg PO DAILY #30 tab Folic Acid 400 mcg PO DAILY Baclofen 10 mg PO TID Sacubitril/Valsartan [Entresto 24 mg-26 mg Tablet] 1 tab PO BID Ezetimibe [Zetia] 10 mg PO DAILY Torsemide [Demadex] 5 mg PO DAILY Potassium Chloride [Klor-Con 8] 8 meq PO DAILY Albuterol Nebulized [Ventolin Nebulized] 2.5 mg INHALATION RT-Q4H PRN PRN Reason: Shortness Of Breath Nirmatrelvir/Ritonavir [Paxlovid 150-100 mg Pack (Eua)] 1 tab PO BID Glimepiride [Amaryl] 2 mg PO AC-BRKFST Evolocumab [Repatha Sureclick] 140 mg SQ Q14D Benzonatate [Tessalon Perle] 200 mg PO TID PRN PRN Reason: Cough Apixaban [Eliquis] 5 mg PO BID Discharge Medication List Albuterol Sulfate [Proair Hfa] 2 puff INHALATION RT-TID PRN 02/02/15 [History] Fenofibrate Nanocrystallized [Fenofibrate] 145 mg PO DAILY 02/02/15 [History] Fluticasone Propionate [Flonase Allergy Relief] 1 spray EA NOSTRIL HS 02/02/15 [History] Levothyroxine Sodium [Levoxyl] 25 mcg PO QAM 02/02/15 [History] Montelukast [Singulair] 10 mg PO QAM 02/02/15 [History] Gabapentin [Neurontin] 300 mg PO BID 01/13/17 [History] Bisoprolol Fumarate [Zebeta] 5 mg PO BID 05/25/20 [History] Famotidine [Pepcid] 20 mg PO BID 05/25/20 [History] buPROPion HCL [Wellbutrin XL] 300 mg PO DAILY 05/25/20 [History] metroNIDAZOLE 1% GEL [Metrogel 1%] 1 applic TOPICAL BID 05/25/20 [History] Baclofen 10 mg PO TID 05/24/22 [History] Empagliflozin [Jardiance] 25 mg PO DAILY 05/24/22 [History] Ezetimibe [Zetia] 10 mg PO DAILY 05/24/22 [History] Folic Acid 400 mcg PO DAILY 05/24/22 [History] NIFEdipine [NIFEdipine ER (Osmotic)] 60 mg PO DAILY 05/24/22 [History] Nitroglycerin 0.2MG/Hr Patch [Nitro-Dur 0.2MG/Hr Patch] 1 patch TRANSDERM DAILY 05/24/22 [History] Pantoprazole [Protonix] 40 mg PO DAILY 05/24/22 [History] Potassium Chloride [Klor-Con 8] 8 meq PO DAILY 05/24/22 [History] Sacubitril/Valsartan [Entresto 24 mg-26 mg Tablet] 1 tab PO BID 05/24/22 [History] Torsemide [Demadex] 5 mg PO DAILY 05/24/22 [History] Umeclidinium [place] [Incruse Ellipta] 2 puff INHALATION RT-HS 05/24/22 [History] Vilazodone HCl [Viibryd] 10 mg PO DAILY 05/24/22 [History] Albuterol Nebulized [Ventolin Nebulized] 2.5 mg INHALATION RT-Q4H PRN 06/20/22 [History] Apixaban [Eliquis] 5 mg PO BID 06/20/22 [History] Benzonatate [Tessalon Perle] 200 mg PO TID PRN 06/20/22 [History] Budesonide-Formot 160-4.5 Mcg [Symbicort 160-4.5 Mcg Inhaler] 2 puff INHALATION RT-HS 06/20/22 [History] Evolocumab [Repatha Sureclick] 140 mg SQ Q14D 06/20/22 [History] Glimepiride [Amaryl] 2 mg PO AC-BRKFST 06/20/22 [History] LORazepam [Ativan] 0.25 mg PO HS PRN 06/20/22 [History] Nirmatrelvir/Ritonavir [Paxlovid 150-100 mg Pack (Eua)] 1 tab PO BID 06/20/22 [History] Ascorbic Acid [Vitamin C] 1,000 mg PO DAILY #60 tab 06/24/22 [Rx] Cholecalciferol [Vitamin D3 (125 Mcg = 5000 Iu)] 125 mcg PO DAILY #30 tab 06/24/22 [Rx] Famotidine [Pepcid] 20 mg PO BID #60 tab 06/24/22 [Rx] Ondansetron [Zofran] 4 mg PO Q8HR PRN 3 Days #10 tab 06/24/22 [Rx] Zinc Sulfate [Orazinc] 220 mg PO DAILY #30 cap 06/24/22 [Rx] dexAMETHasone [Decadron] 4 mg PO DAILY 3 Days #3 06/24/22 [Rx] Follow up Appointment(s)/Referral(s): Pool Kim MD [Primary Care Provider] - 07/04/22 9:00 am (Please bring a list of current medications and please wear a mask to your appointment. If you are still experiencing covid symptoms please call office to reschedule appointment. Thank you.) Crista Orellana MD [STAFF PHYSICIAN] - 08/13/22 2:15 pm (stomach doctor for your swallowing problem and other GI issues) Antony Lepe MD [STAFF PHYSICIAN] - 07/02/22 1:15 pm (surgeon) Patient Instructions/Handouts: Bowel Obstruction (DC), COVID-19 (Coronavirus Disease 2019) (DC) Activity/Diet/Wound Care/Special Instructions: heart healthy diet activity is restricted till you see your doctor Discharge Disposition: HOME SELF-CARE
== END 2022-06-24 15:53 | disposition home or self-care (01) | DRG 388 ==
LOC: EC 01:26 → 4SSUR 04:49
PROVIDERS: ADMIT Internal Medicine Geriatric Medicine; ATTEND Internal Medicine Geriatric Medicine
PROC: 5A09457 Assistance with Respiratory Ventilation, 24-96 Consecutive Hours, Continuous Positive Airway Pressure (ICD-10-PCS; principal; 2022-06-22)
DX: K56.7 Ileus, unspecified (principal); U07.1 COVID-19; I48.20 Chronic atrial fibrillation, unspecified; J98.11 Atelectasis; N17.9 Acute kidney failure, unspecified; E87.0 Hyperosmolality and hypernatremia; E11.41 Type 2 diabetes mellitus with diabetic mononeuropathy; E86.0 Dehydration; J38.01 Paralysis of vocal cords and larynx, unilateral; E11.65 Type 2 diabetes mellitus with hyperglycemia; J43.9 Emphysema, unspecified; E87.8 Other disorders of electrolyte and fluid balance, not elsewhere classified; E78.5 Hyperlipidemia, unspecified; I10 Essential (primary) hypertension; I25.10 Atherosclerotic heart disease of native coronary artery without angina pectoris; K21.9 Gastro-esophageal reflux disease without esophagitis; G47.33 Obstructive sleep apnea (adult) (pediatric); E03.9 Hypothyroidism, unspecified; M19.90 Unspecified osteoarthritis, unspecified site; K29.50 Unspecified chronic gastritis without bleeding; K57.90 Diverticulosis of intestine, part unspecified, without perforation or abscess without bleeding; R09.02 Hypoxemia; F32.A Depression, unspecified; F41.9 Anxiety disorder, unspecified; L71.9 Rosacea, unspecified; Z79.01 Long term (current) use of anticoagulants; Z79.51 Long term (current) use of inhaled steroids; Z79.84 Long term (current) use of oral hypoglycemic drugs; Z79.890 Hormone replacement therapy; Z79.899 Other long term (current) drug therapy; Z85.43 Personal history of malignant neoplasm of ovary; Z90.710 Acquired absence of both cervix and uterus; Z92.3 Personal history of irradiation; Z90.49 Acquired absence of other specified parts of digestive tract; Z87.19 Personal history of other diseases of the digestive system; Z87.891 Personal history of nicotine dependence; Z86.73 Personal history of transient ischemic attack (TIA), and cerebral infarction without residual deficits; Z92.21 Personal history of antineoplastic chemotherapy; Z86.69 Personal history of other diseases of the nervous system and sense organs; Z87.440 Personal history of urinary (tract) infections; Z88.1 Allergy status to other antibiotic agents; Z88.3 Allergy status to other anti-infective agents; Z88.5 Allergy status to narcotic agent; Z88.0 Allergy status to penicillin; Z88.8 Allergy status to other drugs, medicaments and biological substances; Z80.8 Family history of malignant neoplasm of other organs or systems; Z80.1 Family history of malignant neoplasm of trachea, bronchus and lung; Z80.0 Family history of malignant neoplasm of digestive organs
CPT/HCPCS: 36415; 71045; 71046; 74022; 74176; 80048; 80053; 81003; 82009; 82803; 83036; 83615; 83690; 83735; 84145; 84484; 85025; 86140; 87635; 93005; 94640; 96361; 96374; 96375; 96376; 99285

== ENCOUNTER → 2022-07-29 | Outpatient (CLI) | payer MEDICARE ==
[2022-07-29 10:06] LABS: Appearance,Urine Clear (Clear); Bilirubin,Urine Negative (Negative); Blood,Urine Negative (Negative); Color,Urine Light Yellow; Glucose,Urine (UA) 4+ (Negative); Ketones,Urine Negative (Negative); Leukocyte Esterase,Urine Negative (Negative); Nitrite,Urine Negative (Negative); PH, Urine 5.5 (5.0-8.0); Protein,Urine Negative (Negative); Specific Gravity,Urine 1.007 (1.001-1.035); Urobilinogen,Urine <2.0 mg/dL (<2.0)
[2022-07-29 14:25] LABS: Basophils # (A) 0.03 X 10*3/uL (0.00-0.10); Basophils % (A) 0.6 %; Eosinophils # (A) 0.04 X 10*3/uL (0.04-0.35); Eosinophils % (A) 0.9 %; HCT 35.6 % (37.2-46.3); HGB 11.3 g/dL (12.0-15.0); Immature Grans, Automated 0.2 %; Lymphocytes # (A) 0.91 X 10*3/uL (0.90-5.00); Lymphocytes % (A) 19.4 %; MCH 29.3 pg (27.0-32.0); MCHC 31.7 g/dL (32.0-37.0); MCV 92.2 fL (80.0-97.0); Mean Platelet Volume 9.4 fL (9.5-12.2); Monocytes # (A) 0.29 X 10*3/uL (0.20-1.00); Monocytes % (A) 6.2 %; NRBC Per 100 WBC 0 /100 WBCS (0.0-0.0); Neutrophils # (A) 3.42 X 10*3/uL (1.80-7.70); Neutrophils % (A) 72.7 %; Platelet Count 199 X 10*3/uL (140-440); RBC 3.86 X 10*6/uL (4.10-5.20); RDW 16.2 % (11.5-14.5)
[2022-07-29 14:33] LABS: % Iron Saturation 15.22 (12.00-45.00); African American GFR (CKD) 69.8 (60.0-200.0); Albumin 4.4 g/dL (3.8-4.9); Albumin/Globulin Ratio 1.85 (1.60-3.17); Anion Gap 12.8 mmol/L (10.00-18.00); BUN/Creat Ratio 17.88 Ratio (12.00-20.00); Blood Urea Nitrogen 16.9 mg/dL (9.0-27.0); Calcium 9.4 mg/dL (8.7-10.3); Carbon Dioxide 25.6 mmol/L (20.0-27.5); Globulin 2.4 g/dL (1.6-3.3); Magnesium 2.2 mg/dL (1.5-2.4); Non-African American GFR(CKD) 60.2 (60.0-200.0); Phosphorus 4.5 mg/dL (2.4-5.1); Total Bilirubin 0.5 mg/dL (0.30-1.20); Total Protein 6.8 g/dL (6.2-8.2); Uric Acid 5.5 mg/dL (2.9-7.7)
== END | disposition home or self-care (01) ==
LOC: LABWHC1 08:53
PROVIDERS: ATTEND Nurse Practitioner Family
DX: I10 Essential (primary) hypertension (principal); D50.9 Iron deficiency anemia, unspecified; N17.9 Acute kidney failure, unspecified
CPT/HCPCS: 36415; 80053; 81003; 82306; 82728; 83540; 83550; 83735; 83970; 84100; 84550; 85025

== ENCOUNTER → 2022-11-22 | Outpatient (CLI) | payer MEDICARE ==
[2022-11-22 16:21] LABS: ALT 25 U/L (8-44); AST 21 U/L (13-35); African American GFR (CKD) 72.5 (60.0-200.0); Albumin 4.7 g/dL (3.8-4.9); Alkaline Phosphatase 53 U/L (41-126); BUN/Creat Ratio 27.07 Ratio (12.00-20.00); Blood Urea Nitrogen 24.8 mg/dL (9.0-27.0); Calcium 9.9 mg/dL (8.7-10.3); Carbon Dioxide 29.6 mmol/L (20.0-27.5); Chloride 104 mmol/L (96-109); Chol/HDL Ratio 1.43 Ratio; Glucose 122 mg/dL (70-110); LDL Cholesterol,Calculated 4.4 mg/dL (0.0-131.0); Non-African American GFR(CKD) 62.5 (60.0-200.0); Potassium 4.1 mmol/L (3.5-5.5); Sodium 143 mmol/L (135-145); Total Protein 6.6 g/dL (6.2-8.2)
[2022-11-23 01:19] LABS: Microalbumin Creatinine Ratio <30 mg/g Creat (0-30); Urine Creatinine 44.4 mg/dL (28.0-217.0)
== END | disposition home or self-care (01) ==
LOC: LABWHC1 09:44
PROVIDERS: ATTEND Internal Medicine Endocrinology, Diabetes & Metabolism
DX: E11.65 Type 2 diabetes mellitus with hyperglycemia (principal)
CPT/HCPCS: 36415; 80053; 80061; 82043; 82570; 83036; 84443

== ENCOUNTER → 2022-12-09 | Outpatient (CLI) | payer MEDICARE ==
--- NOTE | 2022-12-09 14:45 | BD ---
EXAMINATION TYPE: Axial Bone Density DATE OF EXAM: 12/09/2022 COMPARISON: 12-27-2014 CLINICAL HISTORY: 72 years year old Female. ICD-10 CODE: M81.0 OSTEOPOROSIS Height: 64IN Weight: 192LB FRAX RISK QUESTIONS: History of Fracture in Adulthood: YES Secondary Osteoporosis: 3. Menopause before 45: YES RISK FACTORS HISTORY OF: Active: NO Postmenopausal woman: YES Take estrogen and/or progesterone medications: YES, NONE CURRENT How lon-3 YEARS Poor Health: FAIR MEDICATIONS: Thyroid Medications: Which medication: Synthroid How Lon+YEARS Additional Medications: BP MED, CHOLESTEROL MED, REFLUX MED, DIABETIC MED, CARDIAC MED, ANXIETY MED, CALCIUM WITH VITAMIN D Additional History: OVARIAN CANCER WITH CHEMO 2001, ANKLE FX EXAM MEASUREMENTS: Bone mineral densitometry was performed using the [employer]. Bone mineral density as measured about the Lumbar spine is: ----- L1-L4(G/cm2): 1.238 T Score Values are as follows: ----- L1: -0.3 ----- L2: 0.7 ----- L3: 0.7 ----- L4: 0.6 ----- L1-L4: 0.5 Bone mineral density has: Increased 2.5% since study of: 12-27-2014 Bone mineral density about the R hip (g/cm2): 0.960 Bone mineral density about the L hip (g/cm2): 0.913 T Score values are as follows: -----R Neck: -1.5 -----L Neck: -1.8 -----R Total: -0.4 -----L Total: -0.7 Bone mineral density has: Decreased -9.9% since study of: 12-27-2014 FRAX%s: The graph provided illustrates a 17.1% chance for a major osteoporotic fx and a 3.2% chance f or the hips probability for fx in 10 years time. IMPRESSION: Osteopenia (T Score between -2.5 and -1). There is slightly increased risk of fracture and the patient may be considered for treatment. Re-Screen 2-5 years. NOTE: T-SCORE=SD OF THE YOUNG ADULT MEAN.
--- NOTE | 2022-12-09 15:19 | XR ---
EXAMINATION TYPE: XR chest 2V DATE OF EXAM: 12/09/2022 3:10 PM COMPARISON: Chest radiographs from 08/21/2022 TECHNIQUE: XR chest 2V Frontal and lateral views of the chest. CLINICAL INDICATION:Female, 72 years old with history of J84.10; FINDINGS: Lungs/Pleura: There is no evidence of pleural effusion, focal consolidation, or pneumothorax. Pulmonary vascularity: Unremarkable. Heart/mediastinum: Cardiomediastinal silhouette is unremarkable. Musculoskeletal: No acute osseous pathology. IMPRESSION: No acute cardiopulmonary disease/process. No significant change from prior exam.
--- NOTE | 2022-12-10 08:41 | MM ---
Reason for Exam: Screening (asymptomatic). Last screening mammogram was performed 12 month(s) ago. Patient History: Menarche at age 13. First Full-Term at age 23. Left ovary removed at age 51. Right ovary removed at age 51. Hysterectomy at age 51. Postmenopausal. Patient has history of breast feeding. Ovarian cancer, age 51. Patient used Estrogen for 5 years. Patient used Unspecified Hormone for 5 years. Risk Values: Yasmin 5 year model risk: 1.6%. NCI Lifetime model risk: 4.1%. Prior Study Comparison: 07/31/2017 Left Diagnostic Mammogram, [facility]. 09/01/2018 Bilateral Screening Mammogram, [facility]. 12/07/2021 Bilateral Screening Mammogram, [facility]. Tissue Density: There are scattered fibroglandular densities. Findings: Analyzed By CAD. There is no suspicious group of microcalcifications or new suspicious mass in either breast. Benign-appearing round, linear, vascular calcification bilaterally. Chronic nodularity bilaterally. Overall Assessment: Benign, BI-RAD 2 Management: Screening Mammogram of both breasts in 1 year. A clinical breast exam by your physician is recommended on an annual basis and results should be correlated with mammographic findings. Electronically signed and approved by: London Glynn D.O.
== END | disposition home or self-care (01) ==
LOC: RADBDWWP 14:02
PROVIDERS: ATTEND Internal Medicine Geriatric Medicine
DX: Z12.31 Encounter for screening mammogram for malignant neoplasm of breast (principal); M81.0 Age-related osteoporosis without current pathological fracture; M85.89 Other specified disorders of bone density and structure, multiple sites; J84.10 Pulmonary fibrosis, unspecified; Z78.0 Asymptomatic menopausal state
CPT/HCPCS: 71046; 77063; 77067; 77080

== ENCOUNTER → 2023-09-08 | Outpatient (CLI) | payer MEDICARE ==
[2023-09-08 15:59] LABS: ALT 27 U/L (8-44); AST 24 U/L (13-35); Albumin 4.7 d/dL (3.8-4.9); Albumin/Globulin Ratio 2.35 Ratio (1.60-3.17); Alkaline Phosphatase 71 U/L (41-126); Blood Urea Nitrogen 17.1 mg/dL (9.0-27.0); Calcium 10.3 mg/dL (8.7-10.3); Carbon Dioxide 28.9 mmol/L (21.6-31.8); Chloride 102 mmol/L (96-109); Chol/HDL Ratio 1.33 Ratio; Glucose 166 mg/dL (70-110); Potassium 4.4 mmol/L (3.5-5.5); Sodium 143 mmol/L (135-145); Total Bilirubin 0.5 mg/dL (0.3-1.2); Total Protein 6.7 d/dL (6.2-8.2)
[2023-09-08 21:06] LABS: Microalbumin Creatinine Ratio <17 mg/g Cr (0-30); Urine Creatinine 70.1 mg/dL (28.0-217.0)
== END | disposition home or self-care (01) ==
LOC: LABWHC1 09:59
PROVIDERS: ATTEND Internal Medicine Endocrinology, Diabetes & Metabolism
DX: E11.65 Type 2 diabetes mellitus with hyperglycemia (principal)
CPT/HCPCS: 36415; 80053; 80061; 82043; 82570; 83036; 84443

== ENCOUNTER → 2023-10-20 | Outpatient (CLI) | payer MEDICARE ==
[2023-10-20 16:02] LABS: HCT 42.8 % (37.2-46.3); HGB 13.8 g/dL (12.0-15.0); MCH 28.5 pg (27.0-32.0); MCHC 32.2 g/dL (32.0-37.0); MCV 88.4 FL (80.0-97.0); Mean Platelet Volume 9.9 FL (9.5-12.2); NRBC Per 100 WBC 0 X 10*3/uL (0.00-0.01); Platelet Count 237 X 10*3/uL (140-440); RBC 4.84 X 10*6/uL (4.10-5.20); WBC 6.43 X 10*3/uL (4.50-10.00)
[2023-10-20 16:17] LABS: Blood Urea Nitrogen 14.9 mg/dL (9.0-27.0); Carbon Dioxide 28.7 mmol/L (21.6-31.8); Chloride 103 mmol/L (96-109); Potassium 4.5 mmol/L (3.5-5.5); Sodium 144 mmol/L (135-145)
== END | disposition home or self-care (01) ==
LOC: LABPAT 08:36
PROVIDERS: ATTEND Internal Medicine Interventional Cardiology
DX: Z01.812 Encounter for preprocedural laboratory examination (principal); R07.9 Chest pain, unspecified
CPT/HCPCS: 80051; 82565; 84520; 85027

== ENCOUNTER → 2023-10-21 | Day surgery (SDC) | payer MEDICARE ==
[~2023-10-21] MED LIST changes: +ALPRAZolam 0.25 MG TAB PO PRN; +ALPRAZolam 0.5 MG TAB PO PRN; +ASPIRIN 325 MG TAB PO STA; -CLINDAMYCIN 600 MG in DEXTROSE 5% IN WATER 50 ML IVPB ONE; -DEXAMETHASONE SOD PHOSPHATE 10 MG/ML 1 ML VIAL IV ONE; -DEXAMETHASONE SOD PHOSPHATE 4 MG/ML 1 ML VIAL IV ONE; -FAMOTIDINE 20 MG/2 ML VIAL IV ONE; +HEPARIN SODIUM 1,000 UN/ML (10ML VL) IV ONE; +HEPARIN SODIUM 1,000 UN/ML (10ML VL) ONE; +HEPARIN SODIUM,PORCINE (1 ML) 2,500 UNIT in SODIUM CHLORIDE 0.9% 250 ML IRRIGATION PRN; +HEPARIN SODIUM,PORCINE 10,000 UNIT in SODIUM CHLORIDE 0.9% 1,000 ML IRRIGATION PRN; -HYDROmorphone 0.5 MG/0.5 ML SYRINGE IVP PRN; +INSULIN ASPART (NovoLOG) 100 UNIT/ML VIAL SQ SCH; +IOPAMIDOL-370 100ML BTL INJ ONE; -LACTATED RINGERS 1,000 ML IV SCH; +LIDOCAINE 1% INJ 10MG/ML (20 ML MDV) ONE; +LIDOCAINE 1% INJ 10MG/ML (20 ML MDV) SQ ONE; +MIDAZOLAM 2 MG/2 ML VIAL IVP ONE; +NITROGLYCERIN SL TABS 0.4 MG TAB SUBLINGUAL PRN; -ONDANSETRON 4 MG/2 ML VIAL IVP ONE; +RX INFO: IV CONTRAST WAS GIVEN 1 EACH MISC MISCELLANE PRN; +SODIUM CHLORIDE 0.9% 1,000 ML IV SCH; +SODIUM CHLORIDE 0.9% 1,000 ML in EMPTY BAG 1 BAG IV SCH; +VERAPAMIL 2.5 MG/ML 2 ML AMP ONE
[2023-10-21 06:50] VITALS: TEMP 98.7
[2023-10-21 06:54] LABS: Glucose,Whole Blood 218 mg/dL (70-110)
--- NOTE | 2023-10-21 08:24 | P.PCN ---
Date of Procedure: 10/21/23 Operative Findings: CARDIAC CATHETERIZATION PERFORMING PHYSICIAN: Lex Pappas MD, RPVI PROCEDURE PERFORMED: 1. Selective right and left coronary angiogram 2. Left heart catheterization 3. iFR of the LAD( 4. Ultrasound-guided access of the right common femoral artery INDICATION: Cardiomyopathy COMPLICATION: None APPROACH: Right common femoral artery LEVEL OF SEDATION: Moderate with sedation in length of 26 minutes PROCEDURE DESCRIPTION: After obtaining an informed consent, the patient was brought to cardiac laborer tanbark. Local anesthesia was performed using lidocaine subcutaneously. The right common femoral artery was cannulated using Seldinger technique, the guidewire passed easily, following that we advanced a 6 Vietnamese sheath dilator assembly, the wire and dilator were removed and sheath was flushed. Selective right and left coronary angiogram using a 6-Vietnamese JR4 and JL catheters. Following that we did left heart catheterization using 6-Vietnamese pigtail catheter. After that we decided to do one FFR of the LAD. After zeroing the Doppler wire and equalizing between the Doppler wire and guiding catheter which was JL4 guiding catheter in the wire was advanced to the LAD distal to the lesion in the mid LAD. We did iFR that came in to be nonischemic 0.92 Selective right common femoral artery angiogram was performed The procedure was completed there was no complication. SELECTIVE CORONARY ANGIOGRAM: The right coronary artery: Medium to large caliber vessel and a dominant vessel and appeared to be normal and tortuous in the distal portion Left main: Short but angiographically normal The left circumflex: Large caliber vessel and codominant vessel and appears to be angiographically normal. The left anterior descending artery: Large caliber vessel. The LAD in the midportion has a focal lesion by the septal brain surgeon appeared to be in the range of 50%. We did iFR and that came in to be nonischemic at 0.92. The LAD gives rises into the first diagonal branch which has an ostial lesion appeared to be in the range of 50% and second diagonal branch which appears to be normal HEMODYNAMICS: The LVEDP was 8 mmHg was no significant gradient across aortic valve CONCLUSION: 1. Intermediate disease involving the mid LAD documented to be nonflow limiting by Doppler wire 2. Normal left-sided filling pressure POSTPROCEDURE MANAGEMENT: Medical treatment
[2023-10-21 15:16] VITALS: BP 164/82; PULSE 68; RESP 18
== END ==
LOC: CATHCVL 05:48
PROVIDERS: ATTEND Internal Medicine Interventional Cardiology
DX: I25.10 Atherosclerotic heart disease of native coronary artery without angina pectoris (principal); I10 Essential (primary) hypertension; E78.5 Hyperlipidemia, unspecified; E11.9 Type 2 diabetes mellitus without complications; I38 Endocarditis, valve unspecified; I48.0 Paroxysmal atrial fibrillation; Z82.49 Family history of ischemic heart disease and other diseases of the circulatory system; F17.210 Nicotine dependence, cigarettes, uncomplicated; Z79.01 Long term (current) use of anticoagulants; Z79.899 Other long term (current) drug therapy; Z86.79 Personal history of other diseases of the circulatory system
CPT/HCPCS: 93458; 93799; 76937; C1760; C1887; C1769 ×3; C1894; J2250; J2001; J1644; Q9967

== ENCOUNTER → 2023-11-06 | Outpatient (CLI) | payer MEDICARE ==
--- NOTE | 2023-11-06 13:08 | XR ---
EXAMINATION TYPE: XR chest 2V DATE OF EXAM: 11/06/2023 11:28 AM CLINICAL INDICATION:Female, 73 years old with history of J44.9 COPD; [facility] COMPARISON: Chest radiographs from 12/09/2022 TECHNIQUE: XR chest 2V Frontal and lateral views of the chest. FINDINGS: Lungs/Pleura: There is flattening of the diaphragm with increased lucency of the lungs. No evidence o f pneumothorax, pleural effusion or focal consolidation. Pulmonary vascularity: Unremarkable. Heart/mediastinum: Cardiomediastinal silhouette is unremarkable. Musculoskeletal: No acute osseous pathology. IMPRESSION: 1. No acute cardiopulmonary disease process. 2. COPD changes.
== END | disposition home or self-care (01) ==
LOC: RADXRMAIN 11:15
PROVIDERS: ATTEND Internal Medicine Geriatric Medicine
DX: J44.9 Chronic obstructive pulmonary disease, unspecified (principal)
CPT/HCPCS: 71046

== ENCOUNTER → 2023-12-15 | Outpatient (CLI) | payer MEDICARE ==
[2023-12-15 11:08] LABS: Microalbumin Creatinine Ratio <41 mg/g Cr (0-30)
[2023-12-15 11:16] LABS: ALT 25 U/L (8-44); AST 17 U/L (13-35); Albumin 4.5 g/dL (3.8-4.9); Albumin/Globulin Ratio 2.14 Ratio (1.60-3.17); Alkaline Phosphatase 84 U/L (41-126); Blood Urea Nitrogen 19.8 mg/dL (9.0-27.0); Calcium 9.8 mg/dL (8.7-10.3); Carbon Dioxide 27.8 mmol/L (21.6-31.8); Chloride 102 mmol/L (96-109); Chol/HDL Ratio 2.01 Ratio; Globulin 2.1 g/dL (1.6-3.3); Glucose 252 mg/dL (70-110); LDL Cholesterol,Calculated 34.4 mg/dL (0.0-131.0); Potassium 3.9 mmol/L (3.5-5.5); Sodium 142 mmol/L (135-145); Total Bilirubin 0.4 mg/dL (0.3-1.2); Total Protein 6.6 g/dL (6.2-8.2)
== END | disposition home or self-care (01) ==
LOC: LABWHC1 07:46
PROVIDERS: ATTEND Internal Medicine Endocrinology, Diabetes & Metabolism
DX: E11.65 Type 2 diabetes mellitus with hyperglycemia (principal)
CPT/HCPCS: 36415; 80053; 80061; 82043; 82570; 83036; 84443

== ENCOUNTER → 2024-01-06 | Outpatient (CLI) | payer MEDICARE ==
--- NOTE | 2024-01-06 21:23 | XR ---
EXAMINATION TYPE: XR chest 2V DATE OF EXAM: 01/06/2024 COMPARISON: 11/06/2023 HISTORY: 73-year-old female J06.9 ACUTE UPPER RESPIRATORY INFECTION, UNSPECIFIED TECHNIQUE: Frontal and lateral views FINDINGS: Heart upper limits of normal size. Aorta and pulmonary vasculature within normal limits. Mild interst itial prominence is unchanged. No consolidation or pleural effusion. IMPRESSION: Borderline heart size. No acute process seen.
== END | disposition home or self-care (01) ==
LOC: RADXRMAIN 11:23
PROVIDERS: ATTEND Physician Assistant
DX: J06.9 Acute upper respiratory infection, unspecified (principal)
CPT/HCPCS: 71046

== ENCOUNTER → 2024-04-23 | Outpatient (CLI) | payer MEDICARE ==
--- NOTE | 2024-04-28 09:43 | MM ---
Reason for Exam: Screening (asymptomatic). Last mammogram was performed 1 year(s) and 5 month(s) ago. Patient History: Menarche at age 13. First Full-Term at age 23. Left ovary removed at age 51. Right ovary removed at age 51. Hysterectomy at age 51. Postmenopausal. Patient has history of breast feeding. Ovarian cancer, age 51. Patient used Estrogen for 5 years. Patient used Unspecified Hormone for 5 years. Risk Values: Yasmin 5 year model risk: 1.6%. NCI Lifetime model risk: 3.9%. Prior Study Comparison: 09/01/2018 Bilateral Screening Mammogram, [facility]. 12/07/2021 Bilateral Screening Mammogram, [facility]. 12/09/2022 Bilateral MG 3D screening mammo w/cad, [facility]. Tissue Density: There are scattered areas of fibroglandular density. Findings: Analyzed By CAD. There is no suspicious group of microcalcifications or new suspicious mass in either breast. Overall Assessment: Negative, BI-RAD 1 Management: Screening Mammogram of both breasts in 1 year. . Patient should continue monthly self-breast exams. A clinical breast exam by your physician is recommended on an annual basis. This exam should not preclude additional follow-up of suspicious palpable abnormalities. Note on Yasmin scores and lifetime risk: 1. A Yasmin score greater than 3% is considered moderate risk. If this is the case, consider specialist referral to assess eligibility for a risk reducing agent. 2. If overall lifetime risk for the development of breast cancer is 20% or higher, the patient may qualify for future screening with alternating mammogram and breast MRI. Electronically signed and approved by: Amadou Potts M.D. Radiologis
== END | disposition home or self-care (01) ==
LOC: RADMAMWWP 11:50
PROVIDERS: ATTEND Internal Medicine Hematology & Oncology
DX: Z12.31 Encounter for screening mammogram for malignant neoplasm of breast (principal); Z78.0 Asymptomatic menopausal state
CPT/HCPCS: 77063; 77067

== ENCOUNTER 2024-06-29 20:52 | Emergency (ER) | payer MEDICARE | END 2024-06-30 00:50 | disposition home or self-care (01) | LOC: EC 20:52 | CPT/HCPCS: 51702; 51798; 87086; 99284 ==

== ENCOUNTER → 2024-10-05 | Outpatient (CLI) | payer MEDICARE ==
[2024-10-05 15:28] LABS: ALT 24 U/L (8-44); AST 20 U/L (13-35); Albumin 4.4 g/dL (3.8-4.9); Alkaline Phosphatase 80 U/L (41-126); BUN/Creat Ratio 20.38 Ratio (12.00-20.00); Blood Urea Nitrogen 16.3 mg/dL (9.0-27.0); Calcium 9.4 mg/dL (8.7-10.3); Chloride 104 mmol/L (96-109); Chol/HDL Ratio 1.72 Ratio; Globulin 2.2 g/dL (1.6-3.3); Glucose 221 mg/dL (70-110); LDL Cholesterol,Calculated 14.1 mg/dL (0.0-131.0); Potassium 4.1 mmol/L (3.5-5.5); Sodium 142 mmol/L (135-145); Total Bilirubin 0.4 mg/dL (0.3-1.2); Total Protein 6.6 g/dL (6.2-8.2)
[2024-10-05 17:23] LABS: Microalbumin Creatinine Ratio <26 mg/g Cr (0-30); Urine Creatinine 46.7 mg/dL (28.0-217.0)
== END | disposition home or self-care (01) ==
LOC: LABWHC1 08:09
PROVIDERS: ATTEND Internal Medicine Endocrinology, Diabetes & Metabolism
DX: E11.65 Type 2 diabetes mellitus with hyperglycemia (principal)
CPT/HCPCS: 36415; 80053; 80061; 82043; 82570; 83036; 84443

== ENCOUNTER 2024-11-05 05:36 | Day surgery (SDC) | payer MEDICARE ==
[2024-11-05] MEDS ORDERED: ALPRAZolam 0.25 MG TAB PO PRN (05:50)
[2024-11-05] MEDS ORDERED: ALPRAZolam 0.5 MG TAB PO PRN (05:50)
[2024-11-05] MEDS: SODIUM CHLORIDE 0.9% 1,000 ML in EMPTY BAG 1 BAG IV SCH (06:06)
[2024-11-05 06:23] LABS: Glucose,Whole Blood 153 mg/dL (70-110)
[2024-11-05 06:24] VITALS: RESP 16; TEMP 98.3
[2024-11-05] MEDS: IV FLUID CONTINUATION 1,000 ML IV ONE (06:24)
[2024-11-05] MEDS: ASPIRIN 325 MG TAB PO STA (06:33)
[2024-11-05 06:40] LABS: Basophils % (A) 0 %; Eosinophils # (A) 0.1 k/uL (0-0.7); Eosinophils % (A) 2 %; HCT 41.6 % (34.0-46.0); HGB 13.4 gm/dL (11.4-16.0); Lymphocytes # (A) 1.4 k/uL (1.0-4.8); Lymphocytes % (A) 21 %; MCH 28.4 pg (25.0-35.0); MCHC 32.3 g/dL (31.0-37.0); MCV 87.8 fL (80.0-100.0); Monocytes # (A) 0.3 k/uL (0-1.0); Monocytes % (A) 5 %; Neutrophils # (A) 4.5 k/uL (1.3-7.7); Neutrophils % (A) 71 %; Platelet Count 284 k/uL (150-450); RBC 4.73 m/uL (3.80-5.40); WBC 6.4 k/uL (3.8-10.6)
[2024-11-05 06:51] LABS: African American GFR (CKD) 74 (>60 ml/min/1.73 sqM); Anion Gap 8 mmol/L; Blood Urea Nitrogen 17 mg/dL (7-17); Calcium 9.6 mg/dL (8.4-10.2); Carbon Dioxide 28 mmol/L (22-30); Chloride 104 mmol/L (98-107); Glucose 156 mg/dL (74-99); Non-African American GFR(CKD) 64 (>60 ml/min/1.73 sqM); Potassium 3.3 mmol/L (3.5-5.1); Sodium 140 mmol/L (137-145)
[2024-11-05] MEDS: LIDOCAINE 1% INJ 10MG/ML (20 ML MDV) SQ ONE (07:52)
[2024-11-05] MEDS: MIDAZOLAM 2 MG/2 ML VIAL IVP ONE (07:52)
[2024-11-05] MEDS: HEPARIN SODIUM,PORCINE (1 ML) 2,500 UNIT in SODIUM CHLORIDE 0.9% 250 ML IRRIGATION PRN (07:56)
[2024-11-05] MEDS: HEPARIN SODIUM,PORCINE 10,000 UNIT in SODIUM CHLORIDE 0.9% 1,000 ML IRRIGATION PRN (07:56)
[2024-11-05] MEDS: HEPARIN SODIUM 1,000 UN/ML (10ML VL) IV ONE (08:01)
[2024-11-05] MEDS: IOPAMIDOL-370 100ML BTL INJ ONE (08:08)
[2024-11-05] MEDS ORDERED: RX INFO: IV CONTRAST WAS GIVEN 1 EACH MISC MISCELLANE PRN (08:13)
[2024-11-05] MEDS ORDERED: SODIUM CHLORIDE 0.9% 1,000 ML IV SCH (08:15)
--- NOTE | 2024-11-05 08:17 | P.PCN ---
Date of Procedure: 11/05/24 Operative Findings: CARDIAC CATHETERIZATION PERFORMING PHYSICIAN: Lex Pappas MD, RPVI PROCEDURE PERFORMED: 1. Selective right and left coronary angiogram and IFR of the LAD 2. Left heart catheterization 3. Ultrasound-guided access of the right common femoral artery and selective right common femoral artery angiogram INDICATION: Chest discomfort and shortness of breath concerning for angina COMPLICATION: None APPROACH: Right common femoral artery LEVEL OF SEDATION: Moderate with sedation in length of 15 minutes PROCEDURE DESCRIPTION: After obtaining an informed consent, the patient was brought to cardiac labor trainer. Local anesthesia was performed using lidocaine subcutaneously. The right common femoral artery was cannulated using Seldinger technique, the guidewire passed easily, following that we advanced a 6 [place] sheath dilator assembly, the wire and dilator were removed and sheath was flushed. Selective right and left coronary angiogram using a 6-[place] JR4 and JL catheters. Following that we did left heart catheterization using 6 [place] JR4 catheter which crossed the aortic valve After that we decided to do an IFR of the LAD after zeroing Dobler wire and equalizing between the Dobler and guiding catheter which was JL 4 guiding cat heter the left main was engaged and the LAD was wired. Subsequently the IFR came to be at 0.95 The procedure was completed there was no complication. SELECTIVE CORONARY ANGIOGRAM: The right coronary artery: Medium caliber vessel nondominant vessel appears to be angiographically normal Left main: Is angiographically normal The left circumflex: Large-caliber vessel a dominant vessel appears to be angiographically normal as well The left anterior descending artery: Has intermediate lesion in the midportion documented to be nonflow limiting by Doppler wire with IFR of 0.95 HEMODYNAMICS: The LVEDP was 10 mmHg with no gradient was identified across aortic valve CONCLUSION: 1. Intermediate disease involving the mid LAD documented to be nonflow limiting by Doppler wire 2. Normal left-sided filling pressure POSTPROCEDURE MANAGEMENT: Medical treatment
[2024-11-05 12:04] VITALS: BP 153/74; PULSE 71
== END 2024-11-05 12:56 | disposition home or self-care (01) ==
LOC: CATHCVL 05:36
PROVIDERS: ATTEND Internal Medicine Interventional Cardiology
DX: I25.110 Atherosclerotic heart disease of native coronary artery with unstable angina pectoris (principal); I48.0 Paroxysmal atrial fibrillation; E11.22 Type 2 diabetes mellitus with diabetic chronic kidney disease; I12.9 Hypertensive chronic kidney disease with stage 1 through stage 4 chronic kidney disease, or unspecified chronic kidney disease; N18.9 Chronic kidney disease, unspecified; E78.5 Hyperlipidemia, unspecified; I08.0 Rheumatic disorders of both mitral and aortic valves; F17.210 Nicotine dependence, cigarettes, uncomplicated; Z79.890 Hormone replacement therapy; Z79.84 Long term (current) use of oral hypoglycemic drugs; Z79.51 Long term (current) use of inhaled steroids; Z79.85 Long-term (current) use of injectable non-insulin antidiabetic drugs; Z79.01 Long term (current) use of anticoagulants; Z79.620 Long term (current) use of immunosuppressive biologic; Z79.899 Other long term (current) drug therapy; Z86.79 Personal history of other diseases of the circulatory system; Z85.43 Personal history of malignant neoplasm of ovary; Z78.9 Other specified health status; Z82.49 Family history of ischemic heart disease and other diseases of the circulatory system; Z88.1 Allergy status to other antibiotic agents; Z88.5 Allergy status to narcotic agent; Z88.0 Allergy status to penicillin; Z88.8 Allergy status to other drugs, medicaments and biological substances
CPT/HCPCS: 93458; 93799; 80048; 85025; C1760; C1887; C1894; C1769 ×2; J2250; J1644 ×3; J2003; Q9967

== ENCOUNTER → 2025-01-07 | Outpatient (CLI) | payer MEDICARE ==
[2025-01-07 17:04] LABS: Immunoglobulin M 93.9 mg/dL (40.0-280.0)
== END | disposition home or self-care (01) ==
LOC: LABWHC1 07:46
PROVIDERS: ATTEND Otolaryngology
DX: J32.9 Chronic sinusitis, unspecified (principal)
CPT/HCPCS: 36415; 82784; 82787

== ENCOUNTER → 2025-02-08 | Outpatient (CLI) | payer MEDICARE ==
[2025-02-08 10:17] LABS: Basophils # (A) 0.05 X 10*3/uL (0.00-0.10); Basophils % (A) 0.7 %; Eosinophils # (A) 0.06 X 10*3/uL (0.04-0.35); Eosinophils % (A) 0.8 %; HCT 42.6 % (37.2-46.3); HGB 13.8 g/dL (12.0-15.0); Lymphocytes # (A) 1.56 X 10*3/uL (0.90-5.00); Lymphocytes % (A) 20.6 %; MCH 29.6 pg (27.0-32.0); MCHC 32.4 g/dL (32.0-37.0); MCV 91.2 FL (80.0-97.0); Mean Platelet Volume 9.9 FL (9.5-12.2); Monocytes # (A) 0.43 X 10*3/uL (0.20-1.00); Monocytes % (A) 5.7 %; NRBC Per 100 WBC 0 X 10*3/uL (0.00-0.01); Neutrophils # (A) 5.46 X 10*3/uL (1.80-7.70); Neutrophils % (A) 71.8 %; Platelet Count 298 X 10*3/uL (140-440); RBC 4.67 X 10*6/uL (4.10-5.20); RDW 14.2 % (11.5-14.5); WBC 7.59 X 10*3/uL (4.50-10.00)
[2025-02-08 10:35] LABS: Urine Creatinine 92.2 mg/dL (28.0-217.0)
[2025-02-08 10:42] LABS: ALT 37 U/L (8-44); AST 25 U/L (13-35); Albumin 4.4 g/dL (3.8-4.9); Alkaline Phosphatase 62 U/L (41-126); BUN/Creat Ratio 21.13 Ratio (12.00-20.00); Blood Urea Nitrogen 31.7 mg/dL (9.0-27.0); Calcium 9.6 mg/dL (8.7-10.3); Carbon Dioxide 25.5 mmol/L (21.6-31.8); Chloride 100 mmol/L (96-109); Chol/HDL Ratio 1.71 Ratio; Glucose 165 mg/dL (70-110); LDL Cholesterol,Calculated 17.3 mg/dL (0.0-131.0); Potassium 4.9 mmol/L (3.5-5.5); Sodium 139 mmol/L (135-145); Total Bilirubin 0.6 mg/dL (0.3-1.2); Total Protein 6.4 g/dL (6.2-8.2)
== END | disposition home or self-care (01) ==
LOC: LABWHC1 07:10
PROVIDERS: ATTEND Internal Medicine Endocrinology, Diabetes & Metabolism
DX: E11.65 Type 2 diabetes mellitus with hyperglycemia (principal); E11.22 Type 2 diabetes mellitus with diabetic chronic kidney disease; N18.30 Chronic kidney disease, stage 3 unspecified; I48.0 Paroxysmal atrial fibrillation; E78.2 Mixed hyperlipidemia
CPT/HCPCS: 36415; 80053; 80061; 82043; 82570; 83036; 84443; 85025

== ENCOUNTER → 2025-02-17 | Outpatient (CLI) | payer MEDICARE ==
[2025-02-18 02:39] LABS: Basophils # (A) 0.03 X 10*3/uL (0.00-0.10); Basophils % (A) 0.5 %; Eosinophils # (A) 0.05 X 10*3/uL (0.04-0.35); Eosinophils % (A) 0.8 %; HGB 12.4 g/dL (12.0-15.0); Lymphocytes % (A) 15.2 %; MCH 29.2 pg (27.0-32.0); MCHC 31.8 g/dL (32.0-37.0); MCV 91.8 FL (80.0-97.0); Monocytes % (A) 5.1 %; NRBC Per 100 WBC 0 X 10*3/uL (0.00-0.01); Neutrophils # (A) 4.61 X 10*3/uL (1.80-7.70); Neutrophils % (A) 78.1 %; Platelet Count 271 X 10*3/uL (140-440); RBC 4.25 X 10*6/uL (4.10-5.20); RDW 14.5 % (11.5-14.5); WBC 5.91 X 10*3/uL (4.50-10.00)
[2025-02-18 02:56] LABS: Immunoglobulin M 95.4 mg/dL (40.0-280.0)
[2025-02-18 03:24] LABS: Protein, Total 6.5 g/dL (6.2-8.2)
[2025-02-18 14:00] LABS: T4/T8 Ratio (CD4:CD8) 1.7 (1.0-3.7)
== END | disposition home or self-care (01) ==
LOC: LABWHC1 15:04
PROVIDERS: ATTEND Internal Medicine
DX: D84.9 Immunodeficiency, unspecified (principal); R53.83 Other fatigue
CPT/HCPCS: 36415; 82784; 82787; 84165; 84166; 85025; 86317; 86355; 86357; 86359; 86360

== ENCOUNTER → 2025-05-19 | Outpatient (CLI) | payer MEDICARE ==
[2025-05-19 10:15] LABS: Basophils # (A) 0.06 X 10*3/uL (0.00-0.10); Basophils % (A) 0.8 %; Eosinophils # (A) 0.05 X 10*3/uL (0.04-0.35); Eosinophils % (A) 0.7 %; HCT 41.5 % (37.2-46.3); HGB 12.9 g/dL (12.0-15.0); Immature Grans, Automated 0.40 %; Lymphocytes # (A) 1.73 X 10*3/uL (0.90-5.00); Lymphocytes % (A) 23.7 %; MCH 28.2 pg (27.0-32.0); MCHC 31.1 g/dL (32.0-37.0); MCV 90.6 FL (80.0-97.0); Monocytes # (A) 0.39 X 10*3/uL (0.20-1.00); Monocytes % (A) 5.3 %; NRBC Per 100 WBC 0 X 10*3/uL (0.00-0.01); Neutrophils # (A) 5.05 X 10*3/uL (1.80-7.70); Neutrophils % (A) 69.1 %; Platelet Count 260 X 10*3/uL (140-440); RBC 4.58 X 10*6/uL (4.10-5.20); RDW 13.9 % (11.5-14.5); WBC 7.31 X 10*3/uL (4.50-10.00)
[2025-05-19 10:40] LABS: ALT 25 U/L (8-44); AST 21 U/L (13-35); Albumin 4.0 g/dL (3.8-4.9); Albumin/Globulin Ratio 2.00 Ratio (1.60-3.17); Alkaline Phosphatase 67 U/L (41-126); Anion Gap 13.40 mmol/L (4.00-12.00); BUN/Creat Ratio 23.50 Ratio (12.00-20.00); Blood Urea Nitrogen 18.8 mg/dL (9.0-27.0); Calcium 9.0 mg/dL (8.7-10.3); Carbon Dioxide 25.6 mmol/L (21.6-31.8); Chloride 104 mmol/L (96-109); Cholesterol 87.00 mg/dL (0.00-200.00); Globulin 2.0 g/dL (1.6-3.3); Glucose 196 mg/dL (70-110); HDL Cholesterol 57.30 mg/dL (40.00-60.00); LDL Cholesterol,Calculated 1.3 mg/dL (0.0-131.0); Potassium 4.1 mmol/L (3.5-5.5); Sodium 143 mmol/L (135-145); Total Protein 6.0 g/dL (6.2-8.2); Triglycerides 142.00 mg/dL (0.00-149.00); VLDL Calculation 28.40 mg/dL (5.00-40.00)
== END | disposition home or self-care (01) ==
LOC: LABWHC1 06:53
PROVIDERS: ATTEND Physician Assistant
DX: I48.0 Paroxysmal atrial fibrillation (principal); E11.9 Type 2 diabetes mellitus without complications; E78.2 Mixed hyperlipidemia; R53.83 Other fatigue
CPT/HCPCS: 36415; 80053; 80061; 83036; 84443; 85025; 86317

== ENCOUNTER → 2025-05-27 | Outpatient (CLI) | payer MEDICARE ==
--- NOTE | 2025-05-27 10:33 | MM ---
Reason for Exam: Screening (asymptomatic). Last mammogram was performed 1 year(s) and 1 month(s) ago. Patient History: Menarche at age 13. First Full-Term at age 23. Left ovary removed at age 51. Right ovary removed at age 51. Hysterectomy at age 51. Postmenopausal. Patient has history of breast feeding. Ovarian cancer, age 51. Patient used Estrogen for 5 years. Patient used Unspecified Hormone for 5 years. Risk Values: Yasmin 5 year model risk: 1.6%. NCI Lifetime model risk: 3.7%. Prior Study Comparison: 12/07/2021 Bilateral Screening Mammogram, [facility]. 12/09/2022 Bilateral MG 3D screening mammo w/cad, [facility]. 04/23/2024 Bilateral MG 3D screening mammo w/cad, [facility]. Tissue Density: There are scattered areas of fibroglandular density. Findings: Analyzed By CAD. There is no suspicious group of microcalcifications or new suspicious mass in either breast. Stable chronic nodularity Overall Assessment: Benign, BI-RAD 2 Management: Screening Mammogram of both breasts in 1 year. . Patient should continue monthly self-breast exams. A clinical breast exam by your physician is recommended on an annual basis. This exam should not preclude additional follow-up of suspicious palpable abnormalities. Note on Yasmin scores and lifetime risk: 1. A Yasmin score greater than 3% is considered moderate risk. If this is the case, consider specialist referral to assess eligibility for a risk reducing agent. 2. If overall lifetime risk for the development of breast cancer is 20% or higher, the patient may qualify for future screening with alternating mammogram and breast MRI. [facility], , 05/27/2025 10:30 AM. Electronically signed and approved by: Pool Schumacher M.D. Radiologis
== END | disposition home or self-care (01) ==
LOC: RADMAMWWP 10:03
PROVIDERS: ATTEND Internal Medicine Hematology & Oncology
DX: Z12.31 Encounter for screening mammogram for malignant neoplasm of breast (principal); R92.323 Mammographic fibroglandular density, bilateral breasts; Z78.0 Asymptomatic menopausal state
CPT/HCPCS: 77063; 77067